=== PATIENT | male | born 1955 | race Caucasian/White ===

== ENCOUNTER 2023-06-24 08:45 | Outpatient (AMB) | payer MEDICARE, SELFPAY ==
--- NOTE | 2023-06-24 09:37 | AM.OFFWIN_ITS ---
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 Pt missed pcp est care appt on 10/21/22. Pt states he does not have a pcp nor has an appt. Pt states he just wants refills. 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 He has received refills from the clinic previously. It looks like he had a new PCP appointment last September which he missed. Patient states he did not know about this appointment, and is open to getting a PCP. At this time, he only has a couple of days left on his current medications. He states he is doing well on current meds with good effect, and no negative side effects. He states he has been on these at the same dose for many years. [facility] Social History Patient Tobacco Use Status: Never used Tobacco Review of Systems Const All systems reviewed & are unremarkable except as noted in HPI and below Physical Exam Vital Signs: Last Vital Signs Temp 96.7 F L 06/24/23 09:38 Pulse 58 06/24/23 09:38 BP 120/72 06/24/23 09:38 Pulse Ox 98 06/24/23 09:38 Oxygen Delivery Method Room Air 06/24/23 09:38 Const General: cooperative, healthy appearing, comfortable and no acute distress Orientation/consciousness: patient oriented x3 Resp Effort & Inspection: normal respiratory effort and able to speak in complete sentences Auscultation: clear to auscultation bilaterally Cardio Jugular venous distension: no JVD Palpation: normal PMI Rate: regular rate Rhythm: regular rhythm Skin General skin exam: no rashes or lesions noted Neuro General: patient oriented x3 and gait normal Extrem General: Yes capillary refill normal and Yes no clubbing, cyanosis or edema Psych Appearance: grossly normal Mental Status: mental status grossly normal Speech and movement: Normal speech and movement present Affect: normal affect Assessment & Plan Assessment & Plan (1) Encounter for medication refill: Code(s): Z76.0 - Encounter for issue of repeat prescription Plan: I had a lengthy discussion with patient today regarding importance of establishing care with a PCP, for general maintenance of care, screenings, med refills etc. He agrees to this, and will stop the desk prior to leaving here to make a new patient appointment with a PCP. In the meantime, I will provide him with a 1 month refill of the 3 meds as noted above. We reviewed the indications, use, possible side effects of all of these medications. I discussed with him that it is not advised that he continue to come to the walk- in clinic for medication refills. He verbalizes understanding and agrees to plan. Medications: Changed From citalopram 20 mg PO DAILY 14 tabs 0RF To citalopram 20 mg PO DAILY 30 days 30 tabs 0RF From chlorthalidone 25 mg PO DAILY 14 tabs 0RF To chlorthalidone 25 mg PO DAILY 30 days 30 tabs 0RF From atorvastatin 40 mg PO DAILY 14 tabs 0RF To atorvastatin 40 mg PO DAILY 30 days 30 tabs 0RF Discontinued citalopram Discontinued Reason: Duplicate 20 mg PO DAILY 30 tabs 2RF Coding Level of Care Code Est Pt Level 3 (54230) Diagnoses Encounter for medication refill Z76.0
[2023-06-24 09:38] VITALS: BP 120/72; PULSE 58; TEMP 35.9; O2SAT 98
== END 2023-06-24 10:18 | disposition home or self-care (01) ==
PROVIDERS: Visit Provider Nurse Practitioner Family
DX: Z76.0 Encounter for issue of repeat prescription (principal)
CPT/HCPCS: 99213

== ENCOUNTER 2023-08-10 11:25 | Outpatient (AMB) | payer MEDICARE, SELFPAY ==
--- NOTE | 2023-08-10 11:59 | AM.OFFWIN_ITS ---
Intake Vital Signs 08/10/23 12:28 Height 5 ft 11 in Weight 240 lb BMI 33.5 BP 130/74 Blood Pressure Location Rt brachial Position Sitting Pulse 74 Pulse Source Pulse Oximeter Temp 97.6 F Temp Source Temporal Artery Scan Pulse Oximetry (%) 98 Intake Visit Reasons: EST/med refill Intake Note: pt is here for medication refill Patient Tobacco Use Status: Never used Tobacco Allergies No Known Allergies Allergy (Verified 08/10/23 12:30) Do you need a note to return to daycare/school/sports/work: No HPI EST/med refill HPI Details Patient presents today requesting refill on regular medication chlorthalidone, atorvastatin, citalopram. He has received refills from the clinic previously. He has a new patient visit with Dr. Ozuna on 09/28 however is out of medication as of now and is hoping to get refill for these. He states he is doing well on current meds with good effect, and no negative side effects. He states he has been on these at the same dose for many years. [facility] [place] Social History Patient Tobacco Use Status: Never used Tobacco Review of Systems Const All systems reviewed & are unremarkable except as noted in HPI and below Physical Exam Vital Signs: Last Vital Signs Temp 97.6 F 08/10/23 12:28 Pulse 74 08/10/23 12:28 BP 130/74 08/10/23 12:28 Pulse Ox 98 08/10/23 12:28 BMI result Body Mass Index 33.5 Const General: cooperative, healthy appearing, comfortable and no acute distress Orientation/consciousness: patient oriented x3 Resp Effort & Inspection: normal respiratory effort and able to speak in complete sentences Auscultation: clear to auscultation bilaterally Cardio Jugular venous distension: no JVD Palpation: normal PMI Rate: regular rate Rhythm: regular rhythm Skin General skin exam: no rashes or lesions noted Neuro General: patient oriented x3 and gait normal Extrem General: Yes capillary refill normal and Yes no clubbing, cyanosis or edema Psych Appearance: grossly normal Mental Status: mental status grossly normal Speech and movement: Normal speech and movement present Affect: normal affect Assessment & Plan Assessment & Plan (1) Encounter for medication refill: Code(s): Z76.0 - Encounter for issue of repeat prescription Plan: I have refilled chlorthalidone, atorvastatin, citalopram as noted. Patient and I reviewed today indications, use, possible side effects of all medications. He verbalizes understanding. He states he has been on these medications for many years at the same dose, and has been stable on these with no side effects. Patient has a new patient visit scheduled 09/[address] Ozuna, which I strongly encouraged he keep, as the walk-in clinic providers will not be able to continue providing refills for these medications. He states he understands this, and is looking forward to having a PCP. If any needs arise in the meantime, he can certainly return to the clinic. Medications: Refilled chlorthalidone 25 mg PO DAILY 30 days 30 tabs 1RF atorvastatin 40 mg PO DAILY 30 days 30 tabs 1RF citalopram 20 mg PO DAILY 30 days 30 tabs 1RF Coding Level of Care Code Est Pt Level 3 (94828) Diagnoses Encounter for medication refill Z76.0
[2023-08-10 12:28] VITALS: BP 130/74; PULSE 74; TEMP 36.4; O2SAT 98; BMI 33.5
== END 2023-08-10 12:44 | disposition home or self-care (01) ==
PROVIDERS: Visit Provider Nurse Practitioner Family
DX: Z76.0 Encounter for issue of repeat prescription (principal)
CPT/HCPCS: 99213

== ENCOUNTER → 2023-09-08 08:33 | Outpatient (AMB) | payer OTHER, MEDICARE, SELFPAY ==
[2023-09-08 10:08] VITALS: BP 132/74; PULSE 76; TEMP 36.6; O2SAT 97; BMI 33.5
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
== END ==
PROVIDERS: Visit Provider Physician Assistant
DX: M25.551 Pain in right hip (principal)
CPT/HCPCS: 99213

== ENCOUNTER 2023-09-08 10:58 | Outpatient (REF) | payer OTHER, MEDICARE, SELFPAY | END 2023-09-08 10:59 | disposition home or self-care (01) | LOC: HO.HMGCX 10:58 | PROVIDERS: Visit Provider Physician Assistant | DX: M25.551 Pain in right hip (principal) | CPT/HCPCS: 73502 ==

== ENCOUNTER 2023-09-12 09:22 | Outpatient (AMB) | payer OTHER, MEDICARE, SELFPAY ==
[2023-09-12 10:12] VITALS: BP 122/68; PULSE 70; O2SAT 95; BMI 33.9
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
== END 2023-09-12 10:59 | disposition home or self-care (01) ==
PROVIDERS: PCP Internal Medicine; Visit Provider Physician Assistant Medical
DX: Z51.89 Encounter for other specified aftercare (principal)
CPT/HCPCS: 99051; 99213

== ENCOUNTER 2023-09-14 11:41 | Emergency (ER) | payer OTHER, MEDICARE, SELFPAY ==
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
[2023-09-14 11:51] VITALS: BP 152/104; PULSE 79; RESP 18; TEMP 35.9; O2SAT 96; BMI 33.3
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
[2023-09-14] MEDS: Ketorolac Tromethamine 30 MG/ML VIAL IM (16:25)
--- NOTE | 2023-09-14 16:31 | PC.NURSE ---
pt medicated per MAR
[2023-09-14] MEDS: Lidocaine 4 % Patch ADH..PATCH 1 PATCH TRANSDERMA (16:32)
== END 2023-09-14 16:31 | disposition home or self-care (01) ==
PROVIDERS: Emergency Provider Emergency Medicine; PCP Internal Medicine
DX: Z04.1 Encounter for examination and observation following transport accident (principal); G89.29 Other chronic pain; M25.551 Pain in right hip; Z96.641 Presence of right artificial hip joint
CPT/HCPCS: 73502; 96372; 99283; 99284; J1885

== ENCOUNTER 2023-09-22 13:04 | Outpatient (AMB) | payer OTHER, MEDICARE, SELFPAY ==
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
== END 2023-09-22 13:35 | disposition home or self-care (01) ==
PROVIDERS: PCP Internal Medicine; Visit Provider Orthopaedic Surgery
DX: M25.551 Pain in right hip (principal)
CPT/HCPCS: 99202

== ENCOUNTER → 2023-09-22 13:04 | Outpatient (BNVA) | payer OTHER, MEDICARE, SELFPAY | PROVIDERS: PCP Internal Medicine; Visit Provider Orthopaedic Surgery | DX: M25.551 Pain in right hip (principal) | CPT/HCPCS: 99202 ==

== ENCOUNTER 2023-09-28 12:01 | Outpatient (AMB) | payer MEDICARE, SELFPAY ==
[2023-09-28 12:06] VITALS: BP 128/86; PULSE 64; O2SAT 97; BMI 33.8
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
== END 2023-09-28 14:30 | disposition home or self-care (01) ==
PROVIDERS: Visit Provider Internal Medicine
DX: E78.5 Hyperlipidemia, unspecified (principal); I10 Essential (primary) hypertension; F32.89 Other specified depressive episodes; Z90.49 Acquired absence of other specified parts of digestive tract; Z12.11 Encounter for screening for malignant neoplasm of colon; Z00.00 Encounter for general adult medical examination without abnormal findings; M25.551 Pain in right hip
CPT/HCPCS: 99387; 99397

== ENCOUNTER 2023-09-29 11:00 | Outpatient (REF) | payer MEDICARE, SELFPAY ==
[2023-09-29 13:24] LABS: Appearance Urine Clear; Color Urine Yellow; Glucose Urine UA Negative (Negative); Leukocyte Esterase Urine Negative (Negative); Nitrite Urine Negative (Negative); PH 8.5 (5.0-9.0); Specific Gravity - Urine 1.015 (1.005-1.025); Urine Blood Negative (Negative); Urine Ketones Negative (Negative); Urine Protein Negative (Neg-Trace)
[2023-09-29 13:27] LABS: Bacteria Urine None Seen (None Seen); Hyaline Casts Urine 0-2 /LPF (0-2); RBC Urine 0-2 /HPF (0-2); Squamous Epithelial Cell Urine 0-2 /HPF (0-2); WBC Urine 0-5 /HPF (0-5)
[2023-09-29 13:32] LABS: MANUAL DIFF FLAG NO
[2023-09-29 13:40] LABS: Basophils Percent Auto 0.6 % (0-2); Eosinophils Absolute Auto 0.2 X10*3/uL (0.0-0.4); Eosinophils Percent Auto 2.7 % (0-4); Hematocrit 39.4 % (42.0-52.0); Hemoglobin 13.1 g/dl (14.0-18.0); Imm Gran Abs Auto 0.01 X10*3/uL (0.00-0.03); Imm Gran Pct Auto 0.2 % (0.0-0.4); Lymphocytes Percent Auto 16.4 % (20-40); Mean Corpuscular HGB Conc 33.2 g/dl (31.0-36.0); Mean Corpuscular Hemoglobin 31.7 pg (27.0-33.0); Mean Corpuscular Volume 95.4 fL (80.0-98.0); Mean Platelet Volume 12.5 fL (9.4-12.4); Monocytes Absolute Auto 0.4 X10*3/uL (0.1-1.2); Monocytes Percent Auto 6.5 % (2-11); Neutrophils Absolute Auto 4.6 x10*3/uL (2.0-8.3); Neutrophils Percent Auto 73.6 % (45-73); Platelet Count 183 X10*3/uL (160-400); Red Blood Count 4.13 X10*6/uL (4.60-5.80); Red Cell Distribution Width 12.4 % (11.0-16.0); White Blood Count 6.3 X10*3/uL (4.8-10.8)
[2023-09-29 13:56] LABS: Estimated Average Glucose 100 mg/dL; Hemoglobin A1c % 5.1 % (<6.0)
[2023-09-29 14:08] LABS: PSA,Total (Free>4and<10) 2.52 ng/mL (0.00-4.00)
[2023-09-29 14:10] LABS: Alanine Aminotransferase 14 U/L (0-40); Albumin Level 4.1 g/dL (3.5-5.0); Alkaline Phosphatase 41 U/L (39-117); Anion Gap 14 (12-20); Aspartate Amino Transferase 19 U/L (5-37); Bilirubin Total 0.7 mg/dL (0.0-1.0); Blood Urea Nitrogen 13 mg/dL (9-16); Calcium 9.2 mg/dL (8.4-10.2); Carbon Dioxide 26 mmol/L (22-29); Chloride 107 mmol/L (96-108); Cholesterol 225 mg/dL (<200); Estimated Glomerular Filt Rate > 60; Glucose Fasting 91 mg/dL (60-99); HDL Cholesterol 47 mg/dL (>40); LDL Cholesterol Calculated 137 mg/dL (<100); Sodium 143 mmol/L (135-145); Total Protein 6.8 g/dL (6.5-8.0); Triglycerides 207 mg/dL (<150)
== END 2023-09-29 11:01 | disposition home or self-care (01) ==
LOC: HO.HMGCLDS 11:00
PROVIDERS: PCP Internal Medicine; Visit Provider Internal Medicine
DX: Z00.00 Encounter for general adult medical examination without abnormal findings (principal); E78.5 Hyperlipidemia, unspecified; I10 Essential (primary) hypertension; F32.9 Major depressive disorder, single episode, unspecified; Z90.49 Acquired absence of other specified parts of digestive tract; Z12.5 Encounter for screening for malignant neoplasm of prostate
CPT/HCPCS: 36415; 80053; 80061; 81001; 83036; 84153; 85025

== ENCOUNTER 2023-09-30 09:34 | Outpatient (AMB) | payer MEDICARE, SELFPAY ==
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
[2023-09-30 09:48] VITALS: BP 138/80; PULSE 61; TEMP 35.9; O2SAT 97; BMI 36.4
== END 2023-09-30 10:38 | disposition home or self-care (01) ==
PROVIDERS: PCP Internal Medicine; Visit Provider Nurse Practitioner Family
DX: M25.572 Pain in left ankle and joints of left foot (principal)
CPT/HCPCS: 99213

== ENCOUNTER 2023-09-30 10:04 | Outpatient (REF) | payer MEDICARE, SELFPAY ==
--- NOTE | ~2023-09-30 | XR_ITS ---
EXAMINATION: XR ANKLE, LEFT CLINICAL INFORMATION: Pain in left ankle COMPARISON: None available. TECHNIQUE: AP, lateral, and mortise views of the left ankle. FINDINGS: There is soft tissue swelling in the left ankle not associated with fracture or dislocation. Ankle mortise is preserved. Soft tissues are otherwise are normal. There is plantar calcaneal spur. XR/XR ankle LT 2V IMPRESSION: No fracture seen
== END 2023-09-30 10:05 | disposition home or self-care (01) ==
LOC: HO.HMGCX 10:04
PROVIDERS: PCP Internal Medicine; Visit Provider Nurse Practitioner Family
DX: M25.572 Pain in left ankle and joints of left foot (principal)
CPT/HCPCS: 73600

== ENCOUNTER 2023-10-06 14:31 | Outpatient (AMB) | payer MEDICARE, SELFPAY ==
[2023-10-06 15:22] VITALS: BP 118/76; PULSE 75; O2SAT 96; BMI 33.5
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
== END 2023-10-06 16:14 | disposition home or self-care (01) ==
PROVIDERS: PCP Internal Medicine; Visit Provider Nurse Practitioner Primary Care
DX: S93.402D Sprain of unspecified ligament of left ankle, subsequent encounter (principal)
CPT/HCPCS: 99214

== ENCOUNTER 2023-10-06 14:35 | Outpatient (REF) | payer MEDICARE, SELFPAY ==
[2023-10-06 16:44] LABS: Iron 110 mcg/dL (45-160); Percent Iron Saturation 41 % (15-50); Total Iron Binding Capacity 270 mcg/dL (228-428); Unsaturated Iron Binding 160 ug/dL
[2023-10-06 17:09] LABS: Folate 9.8 ng/mL (> or = 4.0); Vitamin B12 382 pg/mL (200-900)
== END 2023-10-06 14:36 | disposition home or self-care (01) ==
LOC: HO.HMGCLDS 14:35
PROVIDERS: PCP Internal Medicine; Visit Provider Internal Medicine
DX: D64.9 Anemia, unspecified (principal)
CPT/HCPCS: 36415; 82607; 82746; 83540

== ENCOUNTER 2023-10-28 11:14 | Outpatient (AMB) | payer MEDICARE, SELFPAY ==
--- NOTE | 2023-10-28 11:17 | AM.OFFWIN_ITS ---
Intake Vital Signs 10/28/23 11:21 Height 5 ft 11 in BP 122/80 Blood Pressure Location Rt brachial Position Sitting Pulse 82 Pulse Source Pulse Oximeter Temp 98.3 F Temp Source Temporal Artery Scan Pulse Oximetry (%) 97 Oxygen Delivery Method Room Air Intake Visit Reasons: EST/wheezing/runny nose(lobby masked) Intake Note: pt is here for c/o wheezing, runny nose Patient Tobacco Use Status: Never used Tobacco Allergies No Known Allergies Allergy (Verified 10/28/23 11:26) Medication List - Last Reconciled 10/28/23 by Stefany Wharton PA-C atorvastatin 40 mg PO DAILY chlorthalidone 25 mg PO DAILY citalopram 20 mg PO DAILY diclofenac sodium 1% 2 grams topical QID doxycycline hyclate 100 mg PO BID lidocaine 5% (Lidoderm) 1 patch topical DAILY Do you need a note to return to daycare/school/sports/work: Yes HPI HPI Comments History of Present Illness Details Presents to office with cough/cold symptom ongoing x 4 days Theraflu without relief + congestion, wheezing, cough He said in past + bronchitis but asthma He smokes marijuana occasionally Subjective fever/chills with body aches No close contacts sick Cough is non-productive He admits to inhaler use in past due to illness He had some loose stools; no blood or black No dizziness or syncope No abdominal pain or vomiting [facility] Surgical History History of right hip replacement 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 Tobacco Use Status: Never used Tobacco e-Cigarette/Vaping Use: Never Used Current occupational status: employed 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 Cognitive needs: No Hearing needs: No Vision needs: Yes Review of Systems Const Reports chills, Reports fatigue and Reports fever(s) ENT Denies ear discharge, Reports nasal congestion, Reports post nasal drip and Denies sore throat Card Denies chest pain at rest, Denies chest pain with activity and Denies dyspnea Resp Reports cough, Denies dyspnea and Reports wheezing GI Denies abdominal pain, Denies melena, Denies hematochezia, Denies GI cramping, Reports diarrhea, Denies nausea and Denies vomiting Musc Reports myalgias Endo Reports fatigue Aller/Immun Reports wheezing Physical Exam Vital Signs: Last Vital Signs Temp 98.3 F 10/28/23 11:21 Pulse 82 10/28/23 11:21 BP 122/80 10/28/23 11:21 Pulse Ox 97 10/28/23 11:21 Oxygen Delivery Method Room Air 10/28/23 11:21 General: Non-toxic, NAD. Speaking full sentences. Skin: Warm dry throughout Eye: EOMI Lymph: no lymphadenopathy HENT: Airway patent. Uvula midline. No pharyngeal erythema or edema. No LOBBY PORTER. Bilateral canals clear. TM non-erythematous, non-bulging. No TM perforation or hemotympanum noted. Respiratory: wheeze L upper lobe. + rhonchi bilateral bases.No tachypnea Cardiac: RRR. No murmur MSK: Full ROM extremities. Neurology: No aphasia or facial droop. Psych: Good mood and affect Assessment & Plan Assessment & Plan (1) Acute bronchitis and bronchiolitis: Code(s): J20.9 - Acute bronchitis, unspecified; J21.9 - Acute bronchiolitis, unspecified Plan: Patient seen and evaluated. Vital stable Lungs + rhonchi and wheeze. Doxycycline to pharmacy for bronchitis; pt instructed to take with food Tessalon not covered with insurance so pt will continue OTC meds orn Minimal wheeze; O2 stable- no steroids warranted at this time. Patient gave verbal understanding and had no additional questions or concerns at time of discharge All questions answered Medications: New doxycycline hyclate 100 mg PO BID 14 caps 0RF J20.9 - Acute bronchitis, unspecified, J21.9 - Acute bronchiolitis, unspecified Coding Level of Care Code Est Pt Level 3 (49368) Diagnoses Acute bronchitis and bronchiolitis J20.9; J21.9
[2023-10-28 11:21] VITALS: BP 122/80; PULSE 82; TEMP 36.8; O2SAT 97
== END 2023-10-28 12:29 | disposition home or self-care (01) ==
PROVIDERS: PCP Internal Medicine; Visit Provider Physician Assistant
DX: J20.9 Acute bronchitis, unspecified (principal); J21.9 Acute bronchiolitis, unspecified
CPT/HCPCS: 99213

== ENCOUNTER 2023-11-04 09:02 | Outpatient (AMB) | payer MEDICARE, SELFPAY ==
--- NOTE | 2023-11-04 09:05 | AM.OFFWIN_ITS ---
Intake Vital Signs 11/04/23 09:06 Height 5 ft 11 in Weight 241 lb BMI 33.6 BP 130/74 Blood Pressure Location Rt brachial Position Sitting Pulse 78 Pulse Source Pulse Oximeter Temp 97.8 F Temp Source Temporal Artery Scan Pulse Oximetry (%) 96 Oxygen Delivery Method Room Air Intake Visit Reasons: EP chest cold masked in lobby Intake Note: pt is here for c.o chest cold with congestion Patient Tobacco Use Status: Never used Tobacco Allergies No Known Allergies Allergy (Verified 11/04/23 09:30) Medication List - Last Reconciled 11/04/23 by Bree Posey, GEORGE- albuterol sulfate 90 mcg/actuation 2 puffs inhalation Q4-6H PRN 30 days atorvastatin 40 mg PO DAILY chlorthalidone 25 mg PO DAILY citalopram 20 mg PO DAILY diclofenac sodium 1% 2 grams topical QID doxycycline hyclate 100 mg PO BID lidocaine 5% (Lidoderm) 1 patch topical DAILY Do you need a note to return to daycare/school/sports/work: Yes HPI HPI Comments History of Present Illness Details Here today w c/o cont cough was seen and tx here 10/28/23 for similar complaints tx w/ doxy bid x 7 days he still has 3 tabs left does not feel much better, worries about a PNA [facility] Surgical History History of right hip replacement 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 Tobacco Use Status: Never used Tobacco e-Cigarette/Vaping Use: Never Used Current occupational status: employed 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 Cognitive needs: No Hearing needs: No Vision needs: Yes Review of Systems Const All systems reviewed & are unremarkable except as noted in HPI and below Physical Exam Vital Signs: Last Vital Signs Temp 97.8 F 11/04/23 09:06 Pulse 78 11/04/23 09:06 BP 130/74 11/04/23 09:06 Pulse Ox 96 11/04/23 09:06 Oxygen Delivery Method Room Air 11/04/23 09:06 BMI result Body Mass Index 33.6 Const Other: awake, alert coarse ins/exp wheeze throughout all lung alvarez, prod cough w thick yellow sput um Assessment & Plan Assessment & Plan (1) Acute bronchitis and bronchiolitis: Code(s): J20.9 - Acute bronchitis, unspecified; J21.9 - Acute bronchiolitis, unspecified Plan: given his cont wheeze, plan cxr today, he should be called w results and treatment as per results. he is hesitant to take steroids so will hold off. i have also sent in inhaler, use as directed. complete doxy as directed Orders: Orders XR chest 2V Today J20.9 - Acute bronchitis, unspecified, J21.9 - Acute bronchiolitis, unspecified Medications: New albuterol sulfate 90 mcg/actuation 2 puffs inhalation Q4-6H 30 days PRN 8.5 grams 0RF shortness of breath or wheezing Coding Level of Care Code Est Pt Level 4 (68584) Diagnoses Acute bronchitis and bronchiolitis J20.9; J21.9
[2023-11-04 09:06] VITALS: BP 130/74; PULSE 78; TEMP 36.6; O2SAT 96; BMI 33.6
== END 2023-11-04 10:10 | disposition home or self-care (01) ==
PROVIDERS: PCP Internal Medicine; Visit Provider Nurse Practitioner Family
DX: J20.9 Acute bronchitis, unspecified (principal); J21.9 Acute bronchiolitis, unspecified
CPT/HCPCS: 99214

== ENCOUNTER 2023-11-04 09:29 | Outpatient (REF) | payer MEDICARE, SELFPAY ==
--- NOTE | ~2023-11-04 | XR_ITS ---
EXAMINATION: XR CHEST CLINICAL INFORMATION: Acute bronchitis. Cold, and attenuation with SOB. COMPARISON: None available. TECHNIQUE: 2 views of the chest were obtained. FINDINGS: No significant abnormality is noted involving the heart, lungs, mediastinum, bony thorax or soft tissues. XR/XR chest 2V IMPRESSION: Unremarkable chest exam.
== END 2023-11-04 09:30 | disposition home or self-care (01) ==
LOC: HO.HMGCX 09:29
PROVIDERS: PCP Internal Medicine; Visit Provider Nurse Practitioner Family
DX: J20.9 Acute bronchitis, unspecified (principal); J21.9 Acute bronchiolitis, unspecified
CPT/HCPCS: 71046

== ENCOUNTER 2023-12-11 14:00 | Outpatient (RCR) | payer MEDICARE, SELFPAY ==
--- NOTE | 2023-12-14 08:17 | MHC.PT.DC ---
[facility] [place] Office [place] Office [place] Office [address] Hugh Peters [address] [phone] F: [phone] F: [phone] F: [phone] F: [phone] Physical Therapy Discharge Report Diagnosis: L ankle sprain Date of Surgery: Date of Evaluation: 10/09/23 Date of Discharge: 12/11/23 Treatments to Date: 10 Cancellations to Date: 0 No Shows to Date: 2 Discharge Status: Achieved Goals Improved Function Independent with HEP Discharge Summary: He reports ambulating about 20 minutes now before it gets sore but it mostly sore at the end of the work day. Reviewed HEP and recommended pt do some of his exercises when he gets home from work to see if that allevaites some of his soreness at the end of the day. He has an ortho appointment in 2 weeks and an appointment with a portfolio director in a month. At this time, recommend he f/u with doctors and conitnue with HEP. LEFS improved from to 52. Electronically signed by: Mere Bobby PT Please sign and return to therapist. Thank you for your referral.
== END 2023-12-11 14:52 ==
LOC: HO.PTCHIC 14:00
PROVIDERS: PCP Internal Medicine; Visit Provider Nurse Practitioner Primary Care
DX: S93.402A Sprain of unspecified ligament of left ankle, initial encounter (principal)
CPT/HCPCS: 97110; 97140; 97162; 97530

== ENCOUNTER 2023-12-24 12:34 | Outpatient (AMB) | payer MEDICARE, SELFPAY ==
[2023-12-24 12:54] VITALS: BMI 33.6
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
== END 2023-12-24 13:17 | disposition home or self-care (01) ==
PROVIDERS: PCP Internal Medicine; Visit Provider Physician Assistant
DX: M19.072 Primary osteoarthritis, left ankle and foot (principal)
CPT/HCPCS: 99213

== ENCOUNTER 2023-12-24 12:43 | Outpatient (REF) | payer MEDICARE, SELFPAY ==
--- NOTE | ~2023-12-24 | XR_ITS ---
EXAMINATION: XR ANKLE, LEFT CLINICAL INFORMATION: Pain COMPARISON: 09/30/2023 TECHNIQUE: AP, lateral, and mortise views of the left ankle. FINDINGS: Mild soft tissue swelling about the ankle again seen. Tiny bony density identified adjacent to the medial malleolus is unchanged. Plantar calcaneal spurring and Achilles calcifications. No acute fracture or dislocation. Mortise is intact. XR/XR ankle LT min 3V IMPRESSION: No acute bony pathology or interval change.
== END 2023-12-24 12:44 | disposition home or self-care (01) ==
LOC: HO.HOSX 12:43
PROVIDERS: Visit Provider Physician Assistant
DX: M19.072 Primary osteoarthritis, left ankle and foot (principal); M25.551 Pain in right hip
CPT/HCPCS: 73610; 99212

== ENCOUNTER 2024-03-26 06:38 | Outpatient (REF) | payer MEDICARE, SELFPAY ==
[2024-03-26 11:39] LABS: MANUAL DIFF FLAG NO
[2024-03-26 11:47] LABS: Basophils Absolute Auto 0.1 X10*3/uL (0.0-0.2); Basophils Percent Auto 0.8 % (0-2); Eosinophils Absolute Auto 0.2 X10*3/uL (0.0-0.4); Eosinophils Percent Auto 3.9 % (0-4); Hematocrit 44.1 % (42.0-52.0); Hemoglobin 15.1 g/dl (14.0-18.0); Imm Gran Abs Auto 0.01 X10*3/uL (0.00-0.03); Imm Gran Pct Auto 0.2 % (0.0-0.4); Lymphocytes Absolute Auto 1.4 X10*3/uL (1.2-4.9); Lymphocytes Percent Auto 22.1 % (20-40); Mean Corpuscular HGB Conc 34.2 g/dl (31.0-36.0); Mean Corpuscular Hemoglobin 31.7 pg (27.0-33.0); Mean Corpuscular Volume 92.5 fL (80.0-98.0); Mean Platelet Volume 12.8 fL (9.4-12.4); Monocytes Absolute Auto 0.5 X10*3/uL (0.1-1.2); Monocytes Percent Auto 8.8 % (2-11); Neutrophils Absolute Auto 3.9 x10*3/uL (2.0-8.3); Neutrophils Percent Auto 64.2 % (45-73); Platelet Count 172 X10*3/uL (160-400); Red Blood Count 4.77 X10*6/uL (4.60-5.80); Red Cell Distribution Width 11.9 % (11.0-16.0); White Blood Count 6.1 X10*3/uL (4.8-10.8)
[2024-03-26 12:18] LABS: PSA,Total (Free>4and<10) 2.54 ng/mL (0.00-4.00)
[2024-03-26 12:19] LABS: Alanine Aminotransferase 17 U/L (0-40); Albumin Level 4.3 g/dL (3.5-5.0); Alkaline Phosphatase 43 U/L (39-117); Anion Gap 13 (12-20); Aspartate Amino Transferase 21 U/L (5-37); Bilirubin Total 0.8 mg/dL (0.0-1.0); Blood Urea Nitrogen 15 mg/dL (9-16); Carbon Dioxide 30 mmol/L (22-29); Chloride 102 mmol/L (96-108); Cholesterol 183 mg/dL (<200); Estimated Glomerular Filt Rate > 60; Glucose Fasting 121 mg/dL (60-99); HDL Cholesterol 48 mg/dL (>40); LDL Cholesterol Calculated 96 mg/dL (<100); Potassium 3.3 mmol/L (3.3-5.1); Sodium 142 mmol/L (135-145); Total Protein 7.4 g/dL (6.5-8.0); Triglycerides 197 mg/dL (<150)
[2024-03-26 12:31] LABS: Folate 6.6 ng/mL (> or = 4.0); Vitamin B12 397 pg/mL (200-900)
== END 2024-03-26 06:39 | disposition home or self-care (01) ==
LOC: HO.HMGCLDS 06:38
PROVIDERS: PCP Internal Medicine; Visit Provider Internal Medicine
DX: Z00.00 Encounter for general adult medical examination without abnormal findings (principal); E78.5 Hyperlipidemia, unspecified; I10 Essential (primary) hypertension; D64.9 Anemia, unspecified; Z12.5 Encounter for screening for malignant neoplasm of prostate
CPT/HCPCS: 36415; 80053; 80061; 82607; 82746; 84153; 85025

== ENCOUNTER 2024-03-29 10:00 | Outpatient (AMB) | payer MEDICARE, SELFPAY ==
[2024-03-29 10:04] VITALS: BP 118/74; PULSE 61; O2SAT 95; BMI 34.7
--- NOTE | 2024-03-29 10:04 | A.OFFPC_ITS ---
Vital Signs 03/29/24 10:04 Height 5 ft 11 in Weight 249 lb BMI 34.7 BP 118/74 Blood Pressure Location Rt brachial Position Sitting Pulse 61 Pulse Source Pulse Oximeter Pulse Oximetry (%) 95 Oxygen Delivery Method Room Air Intake Visit Reasons: 6 month follow up Intake Note: Pt is here today for 6 months follow up visit on labs. Allergies No Known Allergies Allergy (Verified 03/29/24 10:09) Medication List - Last Reconciled 03/29/24 by Reena Ozuna MD albuterol sulfate 90 mcg/actuation 2 puffs inhalation Q4-6H PRN 30 days Anoro Ellipta 62.5-25 mcg/actuation (umeclidinium-vilanterol) 1 inh inhalation DAILY NS atorvastatin 40 mg PO DAILY chlorthalidone 25 mg PO DAILY citalopram 40 mg PO DAILY diclofenac sodium 1% 2 grams topical QID lidocaine 5% (Lidoderm) 1 patch topical DAILY Tobacco use date assessed: 03/29/24 Fall risk assessment: No Falls in past year Last assessed Fall Risk: 03/29/24 Dental Screening Dental Screen Date: 03/29/24 Did you have a dental visit in the last 12 months?: Yes Did you have a dental problem in the last 6 months where you did not have access to dental care?: No Was dental information given to patient?: Patient has dentist HPI 6 month follow up HPI Details Pt presents for f/u hyperlipid, HTN, stable on meds. Pt complains of feeling more depressed because of relationship online. He denies suicidal ideation. Patient has been taking citalopram 20 mg chronically. Patient reports intermittent dry cough and has been smoking marijuana daily. He denies sputum production or history of asthma. Patient has chronic lipoma on the back of his neck and would like to have it surgically removed. [facility] Surgical History History of right hip replacement Family History (Updated 03/29/24 @ 10:12 by XOCHILT Leonard) Father Hypertension Mother No problems noted. 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 1. Little interest or pleasure in doing things: nearly every day 2. Feeling down, depressed, or hopeless: nearly every day 3. Trouble falling or staying asleep, or sleeping too much: nearly every day 4. Feeling tired or having little energy: nearly every day 5. Poor appetite or overeating: nearly every day 6. Feeling bad about yourself - or that you are a failure or have let yourself or your family down: nearly every day 7. Trouble concentrating on things, such as reading the newspaper or watching television: not at all 8. Moving or speaking so slowly that other people could have noticed. Or the opposite - being so fidgety or restless that you have been moving around a lot more than usual: not at all 9. Thoughts that you would be better off or of hurting yourself in some way: several days Total score: 19 Depression Screening Interpretation: Positive (Increase citalopram to 40 mg a day. Patient will call counselor to schedule a psychotherapy. Follow-up in 1 month) Depression Screening Follow-up: Existing condition and In treatment Depression Screening Done: Yes Source: Developed by Drs. Sukhwinder Ellington, Mary Randall, Thaddeus Black and colleagues, with an educational waleska from [employer]. Thrive Questionnaire Date Thrive assessed: 03/29/24 I am a: Patient What is your living situation today?: I have a steady place to live Within the past 12 months, did the food you bought not last and you didn't have the money to get more?: Sometimes True Within the past 12 months, did you worry whether your food would run out before you got money to buy more?: Sometimes True Do you have trouble paying for medicines?: No Do you have trouble getting transportation to medical appointments?: No Do you have trouble paying your heating and electricity bill?: No Do you have trouble taking care of your child, family member or friend?: No Do you have trouble with day-to-day activities such as bathing, preparing meals, shopping, managing finances, etc.?: No Are you currently unemployed and looking for a job?: No Are you interested in more education?: No Please select the resources that you would like help with: None THRIVE Score: 2 GENARO-7 AMB Questionnaire GENARO-7 Date GENARO - 7 assessed: 03/29/24 Feeling nervous, anxious, or on edge: 3 = Nearly every day Not being able to stop or control worryin = Nearly every day Worrying too much about different things: 3 = Nearly every day Trouble relaxin = Nearly every day Being so restless that it is hard to sit still: 3 = Nearly every day Becoming easily annoyed or irritable: 3 = Nearly every day Feeling afraid as if something awful might happen: 3 = Nearly every day Total GENARO-7 score (0-4 normal; 5-9 mild; 10-14 moderate; 15-21 severe): 21 Source: Developed by Drs. Sukhwinder Ellington, Mary Randall, Thaddeus hager nd colleagues, with an educational waleska from [employer]. Review of Systems Const All systems reviewed & are unremarkable except as noted in HPI and below Reports no additional complaints Eyes Reports no additional complaints ENT Reports no additional complaints Card Reports no additional complaints Resp Reports no additional complaints GI Reports no additional complaints Reports no additional complaints Physical exam (Primary Care) Vital Signs: Last Vital Signs Pulse 61 03/29/24 10:04 BP 118/74 03/29/24 10:04 Pulse Ox 95 03/29/24 10:04 Oxygen Delivery Method Room Air 03/29/24 10:04 BMI result Body Mass Index 34.7 Tobacco/Smoking Status: Tobacco use Status Tobacco use date assessed 03/29/24 03/29/24 10:14 Patient Tobacco Use Status Never used Tobacco 03/29/24 10:04 e-Cigarette/Vaping Use Never Used 03/29/24 10:04 PHQ-9: PHQ-9 Score PHQ-9: Total score 19 03/29/24 10:14 Depression Screening Interpretation: Positive (Increase citalopram to 40 mg a day. Patient will call counselor to schedule a psychotherapy. Follow-up in 1 month) Depression Screening Follow-up: Existing condition and In treatment Thrive Assessment: Date of Thrive Assessment Date Thrive assessed 03/29/24 03/29/24 10:14 Const General: no acute distress HENMT Head: Yes normal to inspection Ears: hearing grossly normal bilaterally Throat: Yes posterior oropharynx normal Eyes General: appearance normal, both eyes and all related structures Resp Effort & Inspection: normal respiratory effort Auscultation: wheezes and diminished lung sounds Cardio Rhythm: regular rhythm Heart sounds: S1 normal heart sound present and S2 normal heart sound present GI Inspection: Yes normal to inspection Palpation (GI): Soft to palpation Percussion: Yes normal to percussion Auscultation: normal bowel sounds Skin Other: There is 3 cm subcutaneous mobile soft mass, not tender, no erythema Assessment and Plan Assessment & Plan (1) Hypertension: Code(s): I10 - Essential (primary) hypertension Plan: Continue chlorthalidone. Patient was advised to eat calcium reach foods and repeat basic metabolic panel in 2 weeks (2) Lipoma: Comment: posterior neck Code(s): D17.9 - Benign lipomatous neoplasm, unspecified Plan: Referred to a surgeon (3) Chronic bronchitis: Code(s): J42 - Unspecified chronic bronchitis Plan: Start Anoro and use albuterol as needed follow-up in 1 month (4) Depression: Code(s): F32.9 - Major depressive disorder, single episode, unspecified Qualifiers: Depression Type: other depression Qualified Code(s): F32.89 - Other specified depressive episodes Plan: Increase citalopram to 40 mg a day patient will call a counselor and will follow-up in 1 month (5) Hyperlipidemia: Code(s): E78.5 - Hyperlipidemia, unspecified Plan: Continue statin (6) Overweight: Code(s): E66.3 - Overweight Plan: Increase physical activity decrease caloric intake discussed with the patient Orders: Orders Hemoglobin A1c 2 Weeks I10 - Essential (primary) hypertension Basic Metabolic Panel 2 Weeks I10 - Essential (primary) hypertension Referrals General Surgery Referral D17.9 - Benign lipomatous neoplasm, unspecified Medications: New Anoro Ellipta 62.5-25 mcg/actuation (umeclidinium-vilanterol) 1 inh inhalation DAILY 60 ea 4RF NS citalopram 40 mg PO DAILY 90 tabs 3RF Discontinued citalopram Discontinued Reason: Doctor's Order 20 mg PO DAILY 90 tabs 3RF Coding Level of Care Code Est Pt Level 4 (21414) Diagnoses Hypertension I10 Lipoma D17.9 Chronic bronchitis J42 Other depression F32.89 Depression Type: other depression Hyperlipidemia E78.5 Overweight E66.3
== END 2024-03-29 11:01 | disposition home or self-care (01) ==
PROVIDERS: PCP Internal Medicine; Visit Provider Internal Medicine
DX: I10 Essential (primary) hypertension (principal); D17.9 Benign lipomatous neoplasm, unspecified; J42 Unspecified chronic bronchitis; F32.89 Other specified depressive episodes; E78.5 Hyperlipidemia, unspecified; E66.3 Overweight
CPT/HCPCS: 99214

== ENCOUNTER 2024-04-26 08:37 | Outpatient (AMB) | payer MEDICARE, SELFPAY ==
[2024-04-26 08:53] VITALS: BP 94/64; PULSE 50; O2SAT 94; BMI 34.7
--- NOTE | 2024-04-26 08:53 | MHC.PC.OV ---
Vital Signs 04/26/24 08:53 Height 5 ft 11 in Weight 249 lb BMI 34.7 BP 94/64 Blood Pressure Location Rt brachial Position Sitting Pulse 50 Pulse Source Pulse Oximeter Pulse Oximetry (%) 94 Oxygen Delivery Method Room Air Intake Visit Reasons: 1M F/U Intake Note: Pt is here today for 1 month follow up visit. Allergies No Known Allergies Allergy (Verified 04/26/24 08:56) Medication List - Last Reconciled 04/26/24 by Reena Ozuna MD albuterol sulfate 90 mcg/actuation 2 puffs inhalation Q4-6H PRN 30 days Anoro Ellipta 62.5-25 mcg/actuation (umeclidinium-vilanterol) 1 inh inhalation DAILY NS atorvastatin 40 mg PO DAILY chlorthalidone 25 mg PO DAILY citalopram 40 mg PO DAILY compr.stocking,knee,long,x-lrg As directed diclofenac sodium 1% 2 grams topical QID lidocaine 5% (Lidoderm) 1 patch topical DAILY Tobacco use date assessed: 03/29/24 Dental Screening Dental Screen Date: 03/29/24 HPI 1M F/U HPI Details Pt presents for COPD, hyperlipid, hypertension chronic depression stable on current medications. [facility] Surgical History History of right hip replacement Family History Father Hypertension Mother No problems noted. 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 Sukhwinder Ellington, Mary Randall, Thaddeus Black and colleagues, with an educational waleska from [employer]. Review of Systems Const All systems reviewed & are unremarkable except as noted in HPI and below Reports no additional complaints Eyes Reports no additional complaints ENT Reports no additional complaints Card Reports no additional complaints Resp Reports no additional complaints Reports no additional complaints Physical exam (Primary Care) Vital Signs: Last Vital Signs Pulse 50 04/26/24 08:53 BP 94/64 04/26/24 08:53 Pulse Ox 94 04/26/24 08:53 Oxygen Delivery Method Room Air 04/26/24 08:53 BMI result Body Mass Index 34.7 Tobacco/Smoking Status: Tobacco use Status Tobacco use date assessed 03/29/24 04/26/24 08:53 Patient Tobacco Use Status Never used Tobacco 04/26/24 08:53 e-Cigarette/Vaping Use Never Used 04/26/24 08:53 Thrive Assessment: Date of Thrive Assessment Date Thrive assessed 03/29/24 04/26/24 08:53 Const General: no acute distress HENMT Head: Yes normal to inspection Eyes General: appearance normal, both eyes and all related structures Resp Effort & Inspection: normal respiratory effort Auscultation: clear to auscultation bilaterally Cardio Rhythm: regular rhythm Heart sounds: S1 normal heart sound present and S2 normal heart sound present GI Inspection: Yes normal to inspection Palpation (GI): Soft to palpation Assessment and Plan Assessment & Plan (1) Varicose veins of both legs with edema: Code(s): I83.893 - Varicose veins of bilateral lower extremities with other complications Plan: Patient will try compression knee-highs (2) Hypertension: Code(s): I10 - Essential (primary) hypertension Plan: Continue chlorthalidone (3) Hyperlipidemia: Code(s): E78.5 - Hyperlipidemia, unspecified Plan: Continue statin (4) Hyperglycemia: Code(s): R73.9 - Hyperglycemia, unspecified Plan: ADA diet increase exercise weight loss discussed with the patient check A1c (5) Chronic bronchitis: Code(s): J42 - Unspecified chronic bronchitis Plan: Continue Anoro Ellipta Orders: Orders Comprehensive [place]. Panel Fast 5 Months E78.5 - Hyperlipidemia, unspecified, I10 - Essential (primary) hypertension, R73.9 - Hyperglycemia, unspecified Hemoglobin A1c 5 Months E78.5 - Hyperlipidemia, unspecified, I10 - Essential (primary) hypertension, R73.9 - Hyperglycemia, unspecified Lipid Panel 5 Months E78.5 - Hyperlipidemia, unspecified, I10 - Essential (primary) hypertension, R73.9 - Hyperglycemia, unspecified Medications: New compr.stocking,knee,long,x-lrg As directed 2 ea 0RF I83.893 - Varicose veins of bilateral lower extremities with other complications compr.stocking,knee,long,x-lrg As directed 2 ea 0RF I83.893 - Varicose veins of bilateral lower extremities with other complications Coding Level of Care Code Est Pt Level 4 (44754) Diagnoses Varicose veins of both legs with edema I83.893 Hypertension I10 Hyperlipidemia E78.5 Hyperglycemia R73.9 Chronic bronchitis J42
== END 2024-04-26 09:33 | disposition home or self-care (01) ==
PROVIDERS: PCP Internal Medicine; Visit Provider Internal Medicine
DX: I83.893 Varicose veins of bilateral lower extremities with other complications (principal); I10 Essential (primary) hypertension; E78.5 Hyperlipidemia, unspecified; R73.9 Hyperglycemia, unspecified; J42 Unspecified chronic bronchitis
CPT/HCPCS: 99214

== ENCOUNTER 2024-06-15 15:05 | Outpatient (AMB) | payer MEDICARE, SELFPAY ==
--- NOTE | 2024-06-15 15:06 | MHC.OFFWIV ---
Intake Vital Signs 06/15/24 15:09 Height 5 ft 11 in Weight 245 lb BMI 34.2 BP 132/90 H Blood Pressure Location Rt brachial Position Sitting Pulse 72 Pulse Source Pulse Oximeter Temp 99.8 F Temp Source Oral Pulse Oximetry (%) 96 Oxygen Delivery Method Room Air Intake Visit Reasons: EP chest cold, fever Intake Note: pt here c/o cold symptoms and fever. Started yesterday Patient Tobacco Use Status: Never used Tobacco Allergies No Known Allergies Allergy (Verified 06/15/24 15:07) Do you need a note to return to daycare/school/sports/work: No HPI HPI Comments History of Present Illness Details Pt is a 69yo M with hx of bronchitis who presents with fever, cough Ongoing since yesterday Subjective fever/chills Management with Advil and Mucinex without relief + congestion, cough with clear phlegm Some SOB/wheezing No CP, ST, nausea or vomiting Some loose stool but no abdominal pain PFSH Surgical History History of right hip replacement Family History Father Hypertension Mother No problems noted. 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 Cognitive needs: No Hearing needs: No Vision needs: Yes Review of Systems Const Reports chills, Reports fatigue and Reports fever(s) ENT Denies dizziness and Denies sore throat Card Denies chest pain and Denies syncope Resp Reports chest congestion, Reports cough and Reports wheezing GI Denies abdominal pain, Reports loose stools, Denies nausea and Denies vomiting Musc Reports myalgias Neuro Denies dizziness and Denies syncope Endo Reports fatigue Aller/Immun Reports wheezing Physical Exam Vital Signs: Last Vital Signs Temp 99.8 F 06/15/24 15:09 Pulse 72 06/15/24 15:09 BP 132/90 H 06/15/24 15:09 Pulse Ox 96 06/15/24 15:09 Oxygen Delivery Method Room Air 07/17/24 15:09 BMI result Body Mass Index 34.2 General: Non-toxic, NAD. Speaking full sentences. Skin: Warm dry throughout Eye: EOMI HENT: Airway patent. Uvula midline. No pharyngeal erythema or edema. No COLLECTIONS AND ARCHIVES DIRECTOR. Moist mucosa Bilateral canals clear. TM non-erythematous, non-bulging. No TM perforation or hemotympanum noted. Respiratory: + wheezing throughout. + decreaed sounds RLL Cardiac: RRR. No murmur MSK: Full ROM extremities. Neurology: A/O. No aphasia or facial droop. Gait without abnormality Psych: Good mood and affect Assessment & Plan Assessment & Plan (1) Cough: Code(s): R05.9 - Cough, unspecified Qualifiers: Cough type: acute Qualified Code(s): R05.1 - Acute cough Plan: Patient seen and evaluated. Lab closed so unable to do a binex now covid. Will complete send out Chest xray: I viewed and saw chest xray without infiltrate COVID/RSV.flu obtained Prednisone and tessalon to pharmacy If positive for one of them can discuss management with him tomorrow If negative for viral panel, recommend antibiotic coverage for hx of bronchitis Patient gave verbal understanding and had no additional questions or concerns at time of discharge All questions answered Orders: Orders XR chest 2V Today R05.9 - Cough, unspecified SARS-CoV2/FLU/RSV Today R05.9 - Cough, unspecified Medications: New benzonatate 200 mg PO BID-TID PRN 14 caps 0RF cough prednisone 40 mg (2 x 20 mg) PO DAILY 4 days 8 tabs 0RF Coding Level of Care Code Est Pt Level 3 (80279) Diagnoses Acute cough R05.1 Cough type: acute
[2024-06-15 15:09] VITALS: BP 132/90; PULSE 72; TEMP 37.7; O2SAT 96; BMI 34.2
== END 2024-06-15 16:53 | disposition home or self-care (01) ==
PROVIDERS: PCP Internal Medicine; Visit Provider Physician Assistant
DX: R05.1 Acute cough (principal)
CPT/HCPCS: 99213

== ENCOUNTER 2024-06-15 15:23 | Outpatient (REF) | payer MEDICARE, SELFPAY ==
--- NOTE | ~2024-06-15 | XR_ITS ---
EXAMINATION: XR CHEST CLINICAL INFORMATION: Cough COMPARISON: 11/04/2023 TECHNIQUE: 2 views of the chest were obtained. FINDINGS: No significant abnormality is noted involving the heart, lungs, mediastinum, bony thorax or soft tissues. XR/XR chest 2V IMPRESSION: Unremarkable examination.
[2024-06-16 10:56] LABS: Influenza A PCR NEGATIVE (Negative); Influenza B PCR NEGATIVE (Negative); Resp Syncy Virus RNA Qual PCR NEGATIVE (Negative); SARS COV2 PCR INHOUSE NEGATIVE (Negative)
== END 2024-06-15 15:24 | disposition home or self-care (01) ==
LOC: HO.HMGCX 15:23
PROVIDERS: PCP Internal Medicine; Visit Provider Physician Assistant
DX: R05.9 Cough, unspecified (principal)
CPT/HCPCS: 0241U; 71046

== ENCOUNTER 2024-06-16 13:41 | Outpatient (AMB) | payer MEDICARE, SELFPAY ==
--- NOTE | 2024-06-16 13:48 | AM.OFFWIN_ITS ---
Intake Vital Signs 06/16/24 13:49 Height 5 ft 11 in Weight 245 lb BMI 34.2 BP 128/84 Pulse 79 Pulse Source Pulse Oximeter Temp 99.1 F Temp Source Oral Pulse Oximetry (%) 95 Oxygen Delivery Method Room Air Intake Visit Reasons: EP, unable to sleep Intake Note: pt c/o cold symptoms/ unable to sleep Patient Tobacco Use Status: Never used Tobacco Allergies No Known Allergies Allergy (Verified 06/16/24 13:49) Do you need a note to return to daycare/school/sports/work: No HPI EP, unable to sleep HPI Details This note is constructed using voice recognition software. While every effort has been made to ensure accuracy, clinical psychologist licensed errors may have been included. The patient is a 69 year old male who presents to the clinic today with 1 day history of insomnia. 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 He also notes he was seen yesterday for URI. He was prescribed prednisone, but did not take it until this morning. He has to work [employer], and tried to sleep last night, taking advil pm which did not help him sleep last night. He reports feeling calm, but just unable to sleep. He has taken advil pm in the past, with good effect. He has not tried anything to help sleep today. [facility] Surgical History History of right hip replacement Family History Father Hypertension Mother No problems noted. 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 Cognitive needs: No Hearing needs: No Vision needs: Yes Review of Systems Const All systems reviewed & are unremarkable except as noted in HPI and below Physical Exam Vital Signs: Last Vital Signs Temp 99.1 F 06/16/24 13:49 Pulse 79 06/16/24 13:49 BP 128/84 06/16/24 13:49 Pulse Ox 95 06/16/24 13:49 Oxygen Delivery Method Room Air 06/16/24 13:49 BMI result Body Mass Index 34.2 Const General: cooperative, healthy appearing, comfortable, no acute distress and alert Orientation/consciousness: patient oriented x3 Limitations: no limitations Neuro General: patient oriented x3 Psych Appearance: grossly normal Mental Status: mental status grossly normal Speech and movement: Normal speech and movement present Affect: normal affect Assessment & Plan Assessment & Plan (1) Insomnia: Code(s): G47.00 - Insomnia, unspecified Qualifiers: Insomnia type: unspecified Qualified Code(s): G47.00 - Insomnia, unspecified Plan: Given that patient did not yet start prednisone, medication side effect unlikely. Advised taking night off of work to rest and sleep. Discussed at home treatment options including sleepy time tea, meditation, may also try again advil pm. Discussed avoidance of controlled substances for sleep given acute nature. Advised follow up with pcp with ongoing or worsening symptoms. Plan See above for full details and plan. Coding Level of Care Code Est Pt Level 3 (97090) Diagnoses Insomnia, unspecified type G47.00 Insomnia type: unspecified
[2024-06-16 13:49] VITALS: BP 128/84; PULSE 79; TEMP 37.3; O2SAT 95; BMI 34.2
== END 2024-06-16 14:24 | disposition home or self-care (01) ==
PROVIDERS: PCP Internal Medicine; Visit Provider Registered Nurse
DX: G47.00 Insomnia, unspecified (principal)
CPT/HCPCS: 99213

== ENCOUNTER 2024-06-21 14:40 | Outpatient (AMB) | payer MEDICARE, SELFPAY ==
[2024-06-21 14:41] VITALS: BP 130/80; PULSE 68; TEMP 37; O2SAT 93; BMI 34.2
--- NOTE | 2024-06-21 14:41 | MHC.OFFWIV ---
Intake Vital Signs 06/21/24 14:41 Height 5 ft 11 in Weight 245 lb BMI 34.2 BP 130/80 Blood Pressure Location Rt brachial Position Sitting Pulse 68 Pulse Source Pulse Oximeter Temp 98.6 F Temp Source Oral Pulse Oximetry (%) 93 Oxygen Delivery Method Room Air Intake Visit Reasons: EP F/U from [place] chest congestion Intake Note: pt is here for chest congestion follow up Patient Tobacco Use Status: Never used Tobacco Allergies No Known Allergies Allergy (Verified 06/21/24 14:42) Do you need a note to return to daycare/school/sports/work: Yes HPI HPI Comments History of Present Illness Details Pt seen 06/15 by myself Negative RSV/COVID/Flu swab. Negative chest xray Given prednisone Returned on 06/16 for insomnia although didnt take prednisone Returning for cough evaluation He states fever/chills ended today No breathing tx taken at home Not taking any other medicine for symptoms + continual wheeze, chest tightness and white sputum Some SOB on exertion No chest pain, ear pain or ST + congestion PFSH Surgical History History of right hip replacement Family History Father Hypertension Mother No problems noted. 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 Speaking full sentences. Skin: Warm dry throughout Eye: EOMI HENT: Airway patent. Uvula midline. No pharyngeal erythema or edema. No ELECTRIC POWER LINE REPAIRER. Bilateral canals clear. TM non-erythematous, non-bulging. No TM perforation or hemotympanum noted. Respiratory: + wheeze throughout with crackle at R base appreciated Cardiac: RRR. No murmur Neurology: A/O. No aphasia or facial droop. Psych: Good mood and affect Office Procedures Nebulizer Treatment Nebulizer Treatment [id number]/[id number] RX initial, or Nebulizer Subsequent Treatment Office Meds ipratropium 0.5 mg-albuterol 3 mg (2.5 mg base)/3 mL nebulization soln Performing Provider: Stefany Wharton PA-C Performing Location: [facility] Administered by: Yeimi Garcia on 06/21/24 15:11 Dose Route Admin Location Dispensed Lot Number Expiration Date NDC Clinical Data Assistant 3 mL inhalation 3 mL [id number] 09/29/25 84079-041-39 [employer] Assessment & Plan Assessment & Plan (1) Wheeze: Code(s): R06.2 - Wheezing Plan: Pt seen and evaluated Breathing tx Duoneb ordered pt re-evaluated 3:28 and greatly improved aeration and O2 96% Azithromycin to pharmacy Imodium to pharmacy as upon discharge pt states he had experienced some loose stool F/U with PCP ER if worse Pt gave verbal understanding and all questions answered Orders: Orders AMB Nebulizer Treatment Today R06.2 - Wheezing Medications: New azithromycin start on day 2 of therapy2 tablets day 1, then 1 tablet daily until complete 250 mg PO DAILY 6 days 6 tabs 0RF loperamide (Imodium A-D) 4mg initial dose. Then 2mg after each loose BM. No more than 8mg per day 2 mg PO Q6H PRN 14 tabs 0RF loose stool Coding Level of Care Code Est Pt Level 3 (75098) Diagnoses Wheeze R06.2 CPT Codes Nebulizer Treatment - Nebulizer Treatment, initial or subsequent: [id number]/MDI RX initial, or Nebulizer Subsequent Treatment ([id number])
== END 2024-06-21 15:42 | disposition home or self-care (01) ==
PROVIDERS: PCP Internal Medicine; Visit Provider Physician Assistant
DX: R06.2 Wheezing (principal)
CPT/HCPCS: 94640; 99213; J7620

== ENCOUNTER 2024-06-30 12:12 | Outpatient (AMB) | payer MEDICARE, SELFPAY ==
[2024-06-30 12:25] VITALS: BP 132/88; PULSE 68; TEMP 37.2; O2SAT 96; BMI 33.9
--- NOTE | 2024-06-30 12:25 | MHC.OFFWIV ---
Intake Vital Signs 06/30/24 12:25 Height 5 ft 11 in Weight 243 lb BMI 33.9 BP 132/88 Blood Pressure Location Lt brachial Position Sitting Pulse 68 Pulse Source Pulse Oximeter Temp 99.0 F Temp Source Oral Pulse Oximetry (%) 96 Oxygen Delivery Method Room Air Intake Visit Reasons: possible brochities Intake Note: pt is here for possible bronchitis. Cough, requesting work note Patient Tobacco Use Status: Never used Tobacco Allergies No Known Allergies Allergy (Verified 06/30/24 12:25) Do you need a note to return to daycare/school/sports/work: Yes HPI possible brochities HPI Details This note is constructed using voice recognition software. While every effort has been made to ensure accuracy, social and human services assistant errors may have been included. The patient is a 69 year old male who presents to the clinic today with concern for cough for the past several weeks. He has been seen several times for cough, as well as insomnia related to the cough in the last few weeks. He has been evaluated on June 15, , and . In those visits he has had a flu and COVID tests which has been normal, a negative chest x-ray. He has been treated with both prednisone and azithromycin. He has also been provided nebulizer treatment, and has albuterol inhaler at home. Initially he has been declining to take time off of work. He reports his beathing is nearly completely resolved, but his cough has lead him to not sleep well as he feels the rattling in his chest. He denies wheezing, fever, dyspnea. He reports that he is able to get up white secretions. He is a former smoker but has not smoked in many years. He reports that he is primarily looking for a note for work as he is now ready to take a couple of days off to rest. He reports that he is able to fall asleep and relatively stay asleep but does get woken up and this is what is leading him to feel more tired. He does not feel that his fatigue is worsening. He does not feel that he needs medication to treat the insomnia. [facility] Surgical History History of right hip replacement Family History Father Hypertension Mother No problems noted. 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 Cognitive needs: No Hearing needs: No Vision needs: Yes Review of Systems Const All systems reviewed & are unremarkable except as noted in HPI and below Physical Exam Vital Signs: Last Vital Signs Temp 99.0 F 06/30/24 12:25 Pulse 68 06/30/24 12:25 BP 132/88 06/30/24 12:25 Pulse Ox 96 06/30/24 12:25 Oxygen Delivery Method Room Air 06/30/24 12:25 BMI result Body Mass Index 33.9 Const General: cooperative, healthy appearing, comfortable and no acute distress Orientation/consciousness: patient oriented x3 Limitations: no limitations HEENT Head: Yes normal to inspection Ears: hearing grossly normal bilaterally, external ears normal and TM's normal bilaterally General nose exam: Normal external nose present, Normal nares present and No nasal discharge present Face and sinus: Yes normal facial exam and Yes sinuses nontender Mouth: Normal oral and palatal mucosa present and moist mucous membranes Throat: Yes posterior oropharynx normal, Yes tonsils normal and Yes uvula midline Eyes General: appearance normal, both eyes and all related structures Neck Neck: Yes normal visual inspection Resp Effort & Inspection: normal respiratory effort, able to speak in complete sentences, Actively coughing, no respiratory distress, not tachypneic, no tripod positioning and no use of accessory muscles Auscultation: clear to auscultation bilaterally Cardio Jugular venous distension: no JVD Rate: regular rate Rhythm: regular rhythm Heart sounds: S1 normal heart sound present, S2 normal heart sound present, no click, no gallops, no murmurs and no rubs Skin General skin exam: no rashes or lesions noted, elasticity normal and turgor normal Neuro General: patient oriented x3 Extrem General: Yes normal to inspection and Yes no clubbing, cyanosis or edema Assessment & Plan Assessment & Plan (1) Cough: Code(s): R05.9 - Cough, unspecified Qualifiers: Cough type: acute Qualified Code(s): R05.1 - Acute cough Plan: Nearly resolved, likely postviral tussive syndrome. Discussed treatment options, however patient has declined at this time. He reports that he has adequate medication at home including CHARITY. Advised patient to follow up with primary care provider. (2) Insomnia: Code(s): G47.00 - Insomnia, unspecified Qualifiers: Insomnia type: unspecified Qualified Code(s): G47.00 - Insomnia, unspecified Plan: Likely secondary to post viral tussive syndrome. Advised use of [id number] antihistamine such as Benadryl to facilitate with sleep. Provided letter to remain out of work for 2 days to obtain adequate rest. Advised patient to follow up with primary care provider Plan See above for full details and plan. Coding Level of Care Code Est Pt Level 3 (88176) Diagnoses Acute cough R05.1 Cough type: acute Insomnia, unspecified type G47.00 Insomnia type: unspecified
== END 2024-06-30 14:15 | disposition home or self-care (01) ==
PROVIDERS: PCP Internal Medicine; Visit Provider Registered Nurse
DX: R05.1 Acute cough (principal); G47.00 Insomnia, unspecified
CPT/HCPCS: 99213

== ENCOUNTER 2024-10-17 11:16 | Outpatient (AMB) | payer MEDICARE, SELFPAY ==
[2024-10-17 11:29] VITALS: BP 120/70; PULSE 60; O2SAT 94; BMI 35.6
--- NOTE | 2024-10-17 11:29 | A.OFFPC_ITS ---
Vital Signs 10/17/24 11:29 Height 5 ft 11 in Weight 255 lb BMI 35.6 BP 120/70 Blood Pressure Location Lt brachial Position Sitting Pulse 60 Pulse Source Pulse Oximeter Pulse Oximetry (%) 94 Oxygen Delivery Method Room Air Intake Visit Reasons: Annual PE - see comments Intake Note: Pt is here today for PE. Allergies No Known Allergies Allergy (Verified 10/17/24 11:30) Medication List - Last Reconciled 10/17/24 by Reena Ozuna MD albuterol sulfate 90 mcg/actuation 2 puffs inhalation Q4-6H PRN 30 days Anoro Ellipta 62.5-25 mcg/actuation (umeclidinium-vilanterol) 1 inh inhalation DAILY NS atorvastatin 40 mg PO DAILY chlorthalidone 25 mg PO DAILY citalopram 40 mg PO DAILY compr.stocking,knee,long,x-lrg As directed diclofenac sodium 1% 2 grams topical QID lidocaine 5% (Lidoderm) 1 patch topical DAILY loperamide (Imodium A-D) 2 mg PO Q6H PRN Tobacco use date assessed: 10/17/24 Fall risk assessment: 2 + Falls in past year Last assessed Fall Risk: 10/17/24 Dental Screening Dental Screen Date: 10/17/24 Did you have a dental visit in the last 12 months?: Yes Did you have a dental problem in the last 6 months where you did not have access to dental care?: No Was dental information given to patient?: Patient has dentist HPI Annual PE - see comments HPI Details Pt presents for PE. PFSH Surgical History History of right hip replacement Family History Father Hypertension Mother No problems noted. 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 How often do you have a drink containing alcohol?: Never 3. How often do you have six or more drinks on one occasion?: Never Total Score: 0 GENARO-7 AMB Questionnaire GENARO-7 Date GENARO - 7 assessed: 03/29/24 Source: Developed by Drs. Sukhwinder Ellington, Mary Randall, Thaddeus Black and colleagues, with an educational waleska from [employer]. Review of Systems Const All systems reviewed & are unremarkable except as noted in HPI and below Eyes Reports no additional complaints ENT Reports no additional complaints Card Reports no additional complaints Resp Reports no additional complaints GI Reports no additional complaints Reports no additional complaints Physical exam (Primary Care) Vital Signs: Last Vital Signs Pulse 60 10/17/24 11:29 BP 120/70 10/17/24 11:29 Pulse Ox 94 10/17/24 11:29 Oxygen Delivery Method Room Air 10/17/24 11:29 BMI result Body Mass Index 35.6 Tobacco/Smoking Status: Tobacco use Status Tobacco use date assessed 10/17/24 10/17/24 11:37 Patient Tobacco Use Status Never used Tobacco 10/17/24 11:37 e-Cigarette/Vaping Use Never Used 10/17/24 11:29 Thrive Assessment: Date of Thrive Assessment Date Thrive assessed 03/29/24 10/17/24 11:29 Const General: no acute distress HENMT Head: Yes normal to inspection Face and sinus: Yes normal facial exam Throat: Yes posterior oropharynx normal Eyes General: appearance normal, both eyes and all related structures Neck Neck: Yes no lymphadenopathy and Yes supple Resp Effort & Inspection: normal respiratory effort Auscultation: clear to auscultation bilaterally Cardio Rhythm: regular rhythm Heart sounds: S1 normal heart sound present and S2 normal heart sound present GI Inspection: Yes normal to inspection Palpation (GI): Soft to palpation Percussion: Yes normal to percussion Auscultation: normal bowel sounds Coding Level of Care Code Est Pt Prev Care >65y(63611) Diagnoses Hypertension I10 Hyperlipidemia E78.5 Annual physical exam Z00.00 Screening for colon cancer Z12.11 Chronic bronchitis J42 Assessment & Plan Assessment & Plan (1) Hypertension: Code(s): I10 - Essential (primary) hypertension Category: Medical Plan: Continue chlorthalidone (2) Hyperlipidemia: Code(s): E78.5 - Hyperlipidemia, unspecified Category: Medical Plan: Continue statin return for fasting blood work (3) Annual physical exam: Code(s): Z00.00 - Encounter for general adult medical examination without abnormal findings Category: Medical Plan: Well-balanced diet regular physical activity weight loss discussed with the patient. Return in 6 months with a fasting labs before (4) Screening for colon cancer: Comment: negative Cologuard 2021 Code(s): Z12.11 - Encounter for screening for malignant neoplasm of colon Category: Medical Plan: Patient declined colonoscopy (5) Chronic bronchitis: Comment: on Anoro Code(s): J42 - Unspecified chronic bronchitis Category: Medical Plan: Continue Anoro Orders: Orders Comprehensive [place]. Panel Fast 6 Months E78.5 - Hyperlipidemia, unspecified, I10 - Essential (primary) hypertension Hemoglobin A1c 6 Months E78.5 - Hyperlipidemia, unspecified, I10 - Essential (primary) hypertension Complete Blood Count Auto Diff 6 Months E78.5 - Hyperlipidemia, unspecified, I10 - Essential (primary) hypertension Lipid Panel 6 Months E78.5 - Hyperlipidemia, unspecified, I10 - Essential (primary) hypertension UA w Microscopic 6 Months E78.5 - Hyperlipidemia, unspecified, I10 - Essential (primary) hypertension Medications: Refilled Anoro Ellipta 62.5-25 mcg/actuation (umeclidinium-vilanterol) 1 inh inhalation DAILY 60 ea 4RF NS citalopram 40 mg PO DAILY 90 tabs 3RF
== END 2024-10-17 12:08 | disposition home or self-care (01) ==
PROVIDERS: PCP Internal Medicine; Visit Provider Internal Medicine
DX: Z00.00 Encounter for general adult medical examination without abnormal findings (principal); I10 Essential (primary) hypertension; E78.5 Hyperlipidemia, unspecified; J42 Unspecified chronic bronchitis; Z12.11 Encounter for screening for malignant neoplasm of colon

== ENCOUNTER → 2024-10-17 11:16 | Outpatient (BNVA) | payer MEDICARE, SELFPAY | PROVIDERS: PCP Internal Medicine; Visit Provider Internal Medicine | DX: Z00.00 Encounter for general adult medical examination without abnormal findings (principal); I10 Essential (primary) hypertension; E78.5 Hyperlipidemia, unspecified; J42 Unspecified chronic bronchitis | CPT/HCPCS: 99397 ==

== ENCOUNTER 2024-11-16 15:28 | Outpatient (AMB) | payer MEDICARE, SELFPAY ==
--- NOTE | 2024-11-16 15:41 | AM.OFFWIN_ITS ---
Intake Vital Signs 11/16/24 15:43 Weight 254 lb BP 126/80 Blood Pressure Location Rt brachial Position Sitting Pulse 58 Pulse Source Pulse Oximeter Pulse Oximetry (%) 97 Oxygen Delivery Method Room Air Intake Visit Reasons: EP Rt heel pain Intake Note: Patient here for right heel pain that has been present for about 3 days. Patient Tobacco Use Status: Never used Tobacco Allergies No Known Allergies Allergy (Verified 10/17/24 11:30) Do you need a note to return to daycare/school/sports/work: No HPI EP Rt heel pain HPI Details This note is constructed using voice recognition software. While every effort has been made to ensure accuracy, design architect errors may have been included. The patient is a 69 year old male who presents to the clinic today with right heel pain for the last 3 days. He notes that last week he hit his left foot on a door, and since then he has been walking slightly off. He notes the pain to be in the posterior heel region. He does not feel that he is walking any differently on the right foot. He tried an Inder wrap as he felt that the there might have been some swelling, it helped the pain. He has not taken any medication as of yet. He denies redness, warmth, injury to that area.. [facility] Surgical History History of right hip replacement Family History Father Hypertension Mother No problems noted. 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 Cognitive needs: No Hearing needs: No Vision needs: Yes Review of Systems Const All systems reviewed & are unremarkable except as noted in HPI and below Physical Exam Vital Signs: Last Vital Signs Pulse 58 11/16/24 15:43 BP 126/80 11/16/24 15:43 Pulse Ox 97 11/16/24 15:43 Oxygen Delivery Method Room Air 11/16/24 15:43 Const General: cooperative, healthy appearing, comfortable, no acute distress and well developed Orientation/consciousness: patient oriented x3 Limitations: no limitations Resp Effort & Inspection: normal respiratory effort and able to speak in complete sentences GI Inspection: Yes normal to inspection Palpation (GI): Soft to palpation and nontender Skin General skin exam: no rashes or lesions noted Neuro General: patient oriented x3 Extrem Other: Inflammation present to right posterior calcaneal region, with tenderness on palpation. No erythema, warmth, lesions. Achilles intact. Ankle full range of motion. Distal neurovascular exam intact. General: Yes normal to inspection Assessment & Plan Assessment & Plan (1) Heel pain: Code(s): M79.673 - Pain in unspecified foot Qualifiers: Laterality: right Qualified Code(s): M79.671 - Pain in right foot Plan: Given the response to Inder wrap, advised ongoing use of compression. Advised elevation, ice, and addition of NSAIDs as able for pain management. Advised patient to follow up as needed with worsening symptoms or failure to resolve. No indication for imaging today based on history and physical examination. Plan See above for full details and plan. Coding Level of Care Code Est Pt Level 3 (76876) Diagnoses Pain of right heel M79.671 Laterality: right
[2024-11-16 15:43] VITALS: BP 126/80; PULSE 58; O2SAT 97
--- OUTSIDE RECORDS SUMMARY | 2024-11-16 16:02 | XMS_ITS ---
Author Organization [facility] Address [address] [facility] [place] [address] Care Team Providers Care Vacuum Worker Name Role Phone Reena Ozuna MD Primary Care Provider Julia Mendoza [phone] REASON FOR VISIT CX 06/01/24 Encounters Encounter Location Date Provider Diagnosis [address] [place] [address] 05/31/2024 Julia Angel Plan Of Treatment No Information Progress Notes * HERNANDemian MontejoDOB:[birth year] (69 yo M)Acc No.[id number]:05/31/2024 Patient:?Demian Marquez :1955???Age:69 Y???Sex:Male Address:[address] [place] [address], [address], [place] [address] * true * Date:? Generated for Elvai milan/Felicity/eTransmitting on:?11/16/2024 04:02 PM EST
--- OUTSIDE RECORDS SUMMARY | 2024-11-16 16:02 | XMS_ITS ---
Author Organization [facility] Address [address] [place] [address] Care Team Providers Care Pre Press Operator Name Role Phone Sulma YANEZ, Reena Primary Care Provider Julia Mendoza Unavailable [phone] Encounters Encounter Location Date Provider Diagnosis [facility] [address] [place] [address] 06/01/2024 Julia Angel Plan Of Treatment No Information Progress Notes * Demian CHILDRESSDOB:[birth year] (69 yo M)Acc No.[id number]:06/01/2024 Progress Note Patient:?Demian CHILDRESS Provider:?Julia Angel DPM :1955???Age:69 Y???Sex:Male Sundeep e:06/01/2024 Address:[address] [place] [address], [address], [id number] Pcp:Reena Ozuna MD Subjective: * Chief Complaints: * ??? * Medical History:? Objective: * Vitals:? Assessment: Plan: * Treatment: * Images: * The named appointment provid er may or may not be the originator of this progress note, and it is not deemed complete until electronically signed by the appointment provider. Sign off status: Pending * Provider:?Julia Angel DPM Date:?01/2024 Generated for Caprice yates/Felicity/eTransmitting on:?11/16/2024 04:01 PM EST
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
--- OUTSIDE RECORDS SUMMARY | 2024-11-16 16:02 | XMS_ITS | Patient Health Record ---
Author Organization [facility] Address [address] [place] [address] Care Team Providers Care Winding Operator Name Role Phone Reena Ozuna MD Primary Care Provider Julia Mendoza Unavailable [phone] Humberto Newman Unavailable [phone] Allergies No Known Allergies Reason For Referral No Information Medications Medication SIG (Take, Route, Frequency, Duration) [...] Problem Status W/U Status Risk Notes Problem [id number] Primary osteoarthritis of left foot (M19.072) Active confirmed Problem Acquired cavus deformity of left foot (disorder) (8384746242159711) Cavus deformity of left foot (Q66.72) Active confirmed Vital Signs Height 5 ft 11 in in 03/18/2024 Weight 262 lbs 03/18/2024 BMI 36.54 kg/m2 03/18/2024 Encounters Encounter Location Date Provider Diagnosis [facility] [address] [place] [address] 03/18/2024 Julia Angel Pain in left foot M79.672 ; Posterior tibial tendinitis of left lower extremity M76.822 ; Tinea unguium B35.1 ; Pain in right toe(s) M79.674 ; Pain in left toe(s) M79.675 ; Flat foot [pes planus] (acquired), left foot M21.42 and Primary osteoarthritis of left foot M19.072 [facility] [address] [address] 12/08/2023 Humberto Newman [facility] [address] [address] 01/20/2024 [facility] [address] 05/31/2024 Julia Angel Assessments Encounter Date Diagnosis (ICD Code) Assessment [...] X ray : Foot, left 3V 03/18/2024 Insurance Providers Payer Name Payer Address Payer Phone Subscriber Number Group Number Insured Name Patient Relationship to Insured Coverage Start Date Coverage End Date [employer] Medicare Complete [address] [address] [place] [address] [phone] [id number] Demian Marquez Self - patient is the insured Medical (General) History Medical History History ICD Code Anxiety Arthritis Back,Hip,and Knee pain Depression Gall bladder problems High blood pressure Sciatica Surgical History Surgery Date(Month/Year) right hip replacement 2004
== END 2024-11-16 16:11 | disposition home or self-care (01) ==
PROVIDERS: PCP Internal Medicine; Visit Provider Registered Nurse
DX: M79.671 Pain in right foot (principal)

== ENCOUNTER → 2024-11-16 15:28 | Outpatient (BNVA) | payer MEDICARE, SELFPAY | PROVIDERS: PCP Internal Medicine; Visit Provider Registered Nurse | DX: M79.671 Pain in right foot (principal) | CPT/HCPCS: 99212 ==

== ENCOUNTER 2025-01-16 14:42 | Outpatient (AMB) | payer MEDICARE, SELFPAY ==
--- NOTE | 2025-01-16 14:49 | AM.OFFWIN_ITS ---
Intake Vital Signs 01/16/25 14:51 Height 5 ft 11 in Weight 252 lb BMI 35.1 BP 122/90 H Blood Pressure Location Lt brachial Position Sitting Pulse 77 Pulse Source Pulse Oximeter Temp 98.6 F Temp Source Oral Pulse Oximetry (%) 94 Oxygen Delivery Method Room Air Intake Visit Reasons: EP ?infection eyes/exhaustion Intake Note: Patient here for deep cough, wheezing,fatigue that has been present for about 2 days. Patient Tobacco Use Status: Never used Tobacco Allergies No Known Allergies Allergy (Verified 01/16/25 14:52) Do you need a note to return to daycare/school/sports/work: No HPI HPI Comments History of Present Illness Details 69 y/o male patient who presents to the walk in clinic with c/o URI symptoms x 2 days. Pt c/o fatigue, cough , body chills, wheezing, and SOB. [facility] Medical History (Updated 01/16/25 @ 14:56 by Shakira Austin NP) Acute respiratory disease Surgical History History of right hip replacement Family History Father Hypertension Mother No problems noted. 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 Cognitive needs: No Hearing needs: No Vision needs: Yes Review of Systems Const All systems reviewed & are unremarkable except as noted in HPI and below Physical Exam Vital Signs: Last Vital Signs Temp 98.6 F 01/16/25 14:51 Pulse 77 01/16/25 14:51 BP 122/90 H 01/16/25 14:51 Pulse Ox 94 01/16/25 14:51 Oxygen Delivery Method Room Air 01/16/25 14:51 BMI result Body Mass Index 35.1 Const General: cooperative, no acute distress, lethargic and poor hygiene Nutritional Appearance: obese Orientation/consciousness: patient oriented x3 and lethargic HEENT Head: Yes normocephalic Ears: external ears normal and TM abnormal with fluid behind the TM bilateral General nose exam: Normal external nose present and Nasal discharge present Face and sinus: Yes sinuses nontender Mouth: moist mucous membranes Throat: Yes uvula midline Resp Effort & Inspection: normal respiratory effort, able to speak in complete sentences, no audible wheezes and Actively coughing Auscultation: no crackles, no rales, no rhonchi and wheezes Cardio Heart sounds: S1 normal heart sound present and S2 normal heart sound present Neuro General: patient oriented x3 Assessment & Plan Assessment & Plan (1) Acute respiratory disease: Code(s): J06.9 - Acute upper respiratory infection, unspecified Plan: Ordered SARs Ordered Z-pack Rest and hydrate well with warm fluids. Ordered Cough medicine (2) Cough: Code(s): R05.9 - Cough, unspecified Qualifiers: Cough type: acute Qualified Code(s): R05.1 - Acute cough Plan: Ordered SARs Ordered Z-pack Rest and hydrate well with warm fluids. Ordered Cough medicine (3) Wheeze: Code(s): R06.2 - Wheezing Plan: Ordered SARs Ordered Z-pack Rest and hydrate well with warm fluids. Ordered Cough medicine Orders: Orders SARS-CoV2/FLU/RSV Today J06.9 - Acute upper respiratory infection, unspecified Medications: New prednisone 50 mg PO DAILY 5 days 5 tabs 0RF R05.1 - Acute cough, R06.2 - Wheezing azithromycin 500 mg PO DAILY 3 days 3 tabs 0RF J06.9 - Acute upper respiratory infection, unspecified, R05.1 - Acute cough benzonatate 100 mg PO TID 90 caps 0RF cough R05.1 - Acute cough Coding Level of Care Code Est Pt Level 4 (32110) Diagnoses Acute respiratory disease J06.9 Acute cough R05.1 Cough type: acute Wheeze R06.2 Time Spent (min) 20
[2025-01-16 14:51] VITALS: BP 122/90; PULSE 77; TEMP 37; O2SAT 94; BMI 35.1
== END 2025-01-16 15:13 | disposition home or self-care (01) ==
PROVIDERS: PCP Internal Medicine; Visit Provider Nurse Practitioner Family
DX: J06.9 Acute upper respiratory infection, unspecified (principal); R05.1 Acute cough; R06.2 Wheezing

== ENCOUNTER 2025-01-16 14:42 | Outpatient (REF) | payer MEDICARE, SELFPAY ==
--- OUTSIDE RECORDS SUMMARY | 2025-01-16 15:07 | XMS_ITS ---
Author Organization [facility] Dayron larissa [place] Address [address] [facility] [place] [address] Care Team Providers Care Warehouse Receiver Name Role Phone Reena Ozuna MD Primary Care Provider Jimeneza Anam Bell Unavailable [phone] REASON FOR VISIT PCP: 10/2024, Heel pain Medications Medication SIG (Take, Route, Frequency, Duration) Notes Start Date End Date Status Diclofenac Sodium 75 MG 1 tablet with fo od Orally Twice a day for 30 days 12/13/2024 Active Citalopram Hydrobromide 20 [...] cigs/day) Encounters Encounter Location Date Provider Diagnosis [facility] [address] [place] [address] 01/03/2025 Anam Montano Pain in right foot M79.671 [...] Next Appt Details Follow Up: prn, Reason: Progress Notes * Demian CHILDRESSDOB:[birth year] (69 yo M)Acc No.[id number]:01/03/2025 Progress Notes Patient:?Demian CHILDRESS Provider:?Anam Montano D.P.M. :1955???Age:69 Y???Sex:Male Sundeep e:01/03/2025 Address:[address] [place] [address], [address], [facility] Pcp:Reena Ozuna MD Subjective: * Chief Complaints: * ???1. PCP: 10/2024. 2. Heel pain. * HPI: ???Heel pain:?Nature:?aching, burning, pulling.?Location:?Proximal plantar aspect of Heel, RIGHT.?Duration:?several months.?Onset/Cause:?walking.?Course:?improved, at approximately 30 %.?Aggravated:?standing, walking, walking first thing in the morning/after rest, NSAID's.?Treatments:?rest/alter normal daily activity.?Severity/Quality:?States 6 out of 10.?Misc:?Patient states previous conservative therapy has not provided acceptable relief. Despite previous treatments/efforts, patient continues to relate substantial pain and significant functional disability during activity.? * ROS:?General/Constitutional:?Nausea?denies.?Vomiting?denies.?Hunger Thirst?denies.?Loss appetite?denies.?Chills?denies.?Fatigue?denies.?Fever?denies.?Night Sweats?denies.?Unexplained weight loss?denies.?Unexplained weight gain?denies.?HEENTM:?Dentures?denies.?Dizziness?denies.?Glasses/contacts?admits.?Retinopathy?de nies.?Blurred/double vision?denies.?TMJ?denies.?Discharge/drainage?denies.?Implants?denies.?Sore throat?denies.?Dental implants?denies.?Hard of hearing ?denies.?Difficulty chewing/swallowing/speaking?denies.?Nose bleeds?denies.?Sore mouth?denies.?Respiratory:?On Oxygen?denies.?Pneumonia/pleurisy?denies.?Bronchitis?denies.?Emphysema?denies.?C oughing?denies.?Cough blood?denies.?Shortness of breath?denies.?Wheezing?denies.?Cardiovascular:?Pacemaker?denies.?MVP?denies.?WPW?denies.?CHF?denies.?Heart attack?denies.?Septal defect?denies.?Rapid beat?denies.?Chest pain ?denies.?Atrial Fib.?denies.?Murmur/Palpitations?denies.?Gastrointestinal:?Hemorrhoids?denies.?Stomach/Abdominal pain?denies.?Dark blood stool?denies.?Irritable bowel ?denies.?Constipation?denies.?Diarrhea?denies.?Hematology:?Swelling?denies.?Clots?denies.?Varicose Veins?denies.?Bruising?denies.?Bleeding problem?denies.?Genitourinary:?Blood urine?denies.?Frequent/Painfu/urination/bladder control?denies.?Kidney stones?denies.?Infection (UTI)?denies.?Nephropathy?denies.?sex trans dis (STD)?denies.?Prostate?denies.?Musculoskeletal:?Hammertoes?denies.?Bunions?denies.?Back Pain?denies.?Muscle Cramps/ Resting?denies.?Muscle cramps / walking?denies.?Generalized aches and pains?denies.?Weakness?denies.?Integ.:?Dihllon?denies.?Scars?denies.?Corns/calluses?denies.?Ingrown nails?denies.?Painful nails?admits.?Open Sores?denies.?Rashes?denies.?Neurologic:?Difficulty sleeping?denies.?Brain disorder?denies.?Numbness?denies.?Balance trouble?denies.?Confusion?denies.?Fainting/blackouts?denies.?Tingling?denies.?Tr emors?denies.? * Medical History:?Anxiety, Ar thritis, Back,Hip,and Knee pain, Depression, Gall bladder problems, High blood pressure, Sciatica. * Family History:?Mother: dece ased, diagnosed with Unspecified heart disease.?Father: , diagnosed with Other malignant neoplasm of unspecified site, Unspecified essential hypertension.?Siblings: diagnosed with Diabetic - NIDDM.? * Social History:?Tobacco Use:?Tobacco use other than smoking?Are you an other tobacco user??No ?Tobacco Control (Standard)?Tobacco use:?Current smoker ?How often do you smoke cigarettes??Every day ?How many cigarettes a day do you smoke??5 or less ?How soon after you wake up do you smoke your first cigarette??6-30 minutes ?Are you interested in quitting??Not ready to quit ?Additional Findings: Tobacco user?Light cigarette smoker (1-9 cigs/day) * Medications:?Taking Atorvast atin Calcium 40 MG Tablet 1 tablet Orally [...] and reconciled with the patient Objective: * Vitals:? * Examination: ???General Examination: ?GENERAL APPEARANCE:?Reveals a pleasant, alert, well-nourished, well- developed, well hydrated individual, who demonstrates proper attention to hygiene/body habitus, and is in no acute distress.?ORIENTED:?person, place, and time , person, place, and time.?Neurological: ?SENSORY:?Neurological exam reveals intact sensorium, pain sensation normal, vibration sensation intact, pinprick sensation is normal in the lower extremities, Pt denies, anesthesia, burning, paresthesia, tingling, B/L??.?TINEL'S COMPRESSION:?Negative tarsal tunnel, mirian pedis, and medial calcaneal nerves.?DEEP TENDON REFLEXES:?Achilles, 2/4, B/L.?Vascular: ?DP PULSES (B):?3/4, B/L??.?PT PULSES (B):?3/4, B/L??.?CAPILLARY FILL TIME:?immediate, all digits, B/L?.?TROPHIC CONDITION-TEXTURE/ELASTICITY/TURGOR/HAIR GROWTH (B):?normal, B/L??.?TEMPERTURE GRADIENT (C):?warm to cool, proximal to distal, B/L??.?PIGMENTATION:?normal, B/L?.?EDEMA (C):?absent, B/L??.?Dermatologic: ?SKIN FINDINGS:?Skin exam reveals normal texture, elasticity, and turgor. There are no masses. The interspaces are clear?.?Orthopedic: ?MUSCLE STRENGTH:?5/5 all groups in a symmetrical fashion , B/L.?GAIT ABNORMALITY:? Pronated abducted angle and base of gate L>R , antalgic.?FOOT MORPHOLOGY:? LEFT Pes Planus structure Semi-flexible Decreased Ankle joint dorsiflexion ROM, knee extended , Pes Planus structure, Decreased Ankle joint dorsiflexion ROM, knee extended.?FOOTWEAR:?shoe gear properties exacerbate patients foot/toe deformity.?Heel Pain: ?INSPECTION:? Pain on Palpation to Plantar Fascia med. and central bands, intrinsic musc., infra-calcaneal bursa, and med calc tubercle , RIGHT foot, No pain: posterior/superior heel, achilles bursa/tendon, sinus tarsi, peroneals, or with lateral heel compression; no limited STJ ROM, calor, or ecchymosis.? Assessment: * Assessment: 1.?Pain in right foot - M79. 671???2.?Calcaneal spur, right foot - M77.31 (Primary)???3.?Plantar fasciitis of right foot - M72.2???Specify :Acute problem, Stable Response to treatment - Improvement??? Plan: * Treatment: * Preventive Medicine:? ??Counseling:?Discussion:?-13: Office or other outpatient visit for the [...] have encouraged the patient to call the office.?Stretching Exercises:?Stretching and deep tissue massage exercises for the patients injury/diagnosis were discussed and demonstrated, handouts were dispensed.? ??Screening/Special Tests:?Fall Risk?Screening:?No falls in the past year ?FALLS: Screening for Future Fall Risk?Have you had any falls with injury in the past year??No * Follow Up:?prn * Images: * The named appointment provid er may or may not be the originator of this progress note, and it is not deemed complete until electronically signed by the appointment provider. Sign off status: Pending * Provider:?Anam Montano D.P.M. Date:?02/2025 Generated for Caprice yates/Felicity/Marileeitting on:?01/16/2025 03:07 PM EST History and Physical Notes * [...] Decreased Ankle joint dorsiflexion ROM, knee extended FOOTWEAR: shoe gear properties exacerbate patients foot/toe deformity MUSCLE STRENGTH: 5/5 [...]
--- OUTSIDE RECORDS SUMMARY | 2025-01-16 15:08 | XMS_ITS ---
Author [facility] Address [address] [facility] [place] [address] Care Team Providers Care Mass Spectrometry Specialist Name Role Phone Reena Ozuna MD Primary Care Provider Anam Dior Unavailable [phone] REASON FOR VISIT PCP: 10/2024, Heel pain [...] a day for 30 days 12/13/2024 Active Encounters Encounter Location Date [facility] [address] 12/27/2024 Anam Montano Pain in right foot [...] Appt Details Follow Up: 2 Weeks, Reason: Progress Notes * Zeus CHILDRESS:[birth year] (69 yo M)Acc No.[id number]:12/27/2024 Progress Notes Patient:?Demian CHILDRESS Provider:?Anam Montano D.P.M. :1955???Age:69 Y???Sex:Male Sundeep e:12/27/2024 Address:[address] [place] [address], [address], [facility] Pcp:Reena Ozuna MD Subjective: * Chief Complaints: * ???1. PCP: 10/2024. 2. Heel pain. * HPI: ???Heel pain:?Nature:?aching, burning, pulling.?Location:?Proximal plantar aspect of Heel, RIGHT.?Duration:?several months.?Onset/Cause:?walking.?Course:?improved, at approximately 75 %.?Aggravated:?standing, walking, walking first thing in the morning/after rest.?Treatments:?rest/alter normal daily activity.?Severity/Quality:?States 3 out of 10.?Misc:?Patient states previous conservative therapy [...] cramps / walking?denies.?Generalized aches and pains?denies.?Weakness?denies.?Integ.:?Dhillon?denies.?Scars?denies.?Corns/calluses?denies.?Ingrown nails?denies.?Painful nails?admits.?Open Sores?denies.?Rashes?denies.?Neurologic:?Difficulty sleeping?denies.?Brain disorder?denies.?Numbness?denies.?Balance trouble?denies.?Confusion?denies.?Fainting/blackouts?denies.?Tingling?denies.?Tr emors?denies.? * Medical History:? * Medications:?Taking Atorvast atin Calcium 40 MG [...] of right foot - M72.2???Specify :Acute problem, Complicated w/ Multiple Tx Options(4),Dx New problem, Prognosis Uncertain (4)??? Plan: * Treatment: * Preventive Medicine:? ??Counseling:?Discussion:?-13: [...] injury in the past year??No * Follow Up:?2 Weeks * Images: * The named appointment provid er may or may not be the originator of this progress note, and it is not deemed complete until electronically signed by the appointment provider. Sign off status: Pending * Provider:?Anam Montano D.P.M. Date:?12/01 Generated for Caprice yates/Felicity/Millysmitting on:?01/16/2025 03:07 PM EST History and Physical [...]
--- OUTSIDE RECORDS SUMMARY | 2025-01-16 15:08 | XMS_ITS ---
Author Organization [facility] Address [address] [facility] [place] [address] Care Team Providers Care Mechanical Engineering Coop Name Role Phone Reena Ozuna MD Primary Care Provider Unavaila Anam Bell [phone] REASON FOR VISIT NS 01/03 APPT Encounters Encounter Location Date Provider Diagnosis [address] [place] [address] 01/03/2025 Anam Montano Plan Of Treatment No Information Progress Notes * Demian CHILDRESSDOB:[birth year] (69 yo M)Acc No.[id number]:01/03/2025 Patient:?Demian CHILDRESS :1955???Age:69 Y???Sex:Male Address:[address] [place] [address], [address], [place] [address] * true * Date:? Generated for Elvai milan/Felicity/eTransmitting on:?01/16/2025 03:07 PM EST
[2025-01-16 18:28] LABS: Influenza A PCR POSITIVE (Negative); Influenza B PCR NEGATIVE (Negative); Resp Syncy Virus RNA Qual PCR NEGATIVE (Negative); SARS COV2 PCR INHOUSE NEGATIVE (Negative)
== END 2025-01-16 14:43 | disposition home or self-care (01) ==
LOC: HO.LAB 14:42
PROVIDERS: PCP Internal Medicine; Visit Provider Nurse Practitioner Family
DX: J06.9 Acute upper respiratory infection, unspecified (principal); R05.1 Acute cough; R06.2 Wheezing
CPT/HCPCS: 0241U; 99212

== ENCOUNTER 2025-01-25 13:13 | Outpatient (AMB) | payer MEDICARE, SELFPAY ==
--- NOTE | 2025-01-25 13:57 | MHC.OFFWIV ---
Intake Vital Signs 01/25/25 13:58 Height 5 ft 11 in Weight 241 lb BMI 33.6 BP 120/90 H Blood Pressure Location Rt brachial Position Sitting Respiration 16 Pulse 70 Pulse Source Pulse Oximeter Temp 98.5 F Temp Source Oral Pulse Oximetry (%) 93 Oxygen Delivery Method Room Air Intake Visit Reasons: EP pain on LT leg Intake Note: Pt is here today c/o Lt lower leg pain x4days Patient Tobacco Use Status: Never used Tobacco Allergies No Known Allergies Allergy (Verified 01/25/25 14:09) HPI HPI Comments History of Present Illness Details History of Present Illness - The patient is a 69-year-old male presenting with complaints of pain in the left hip and lateral calf region. - The pain began approximately five days ago, with no identified trauma. - It is associated with a muscle that appears more prominent than usual in the calf area and possible protrusion. - No prior relevant imaging or diagnosis for this specific issue was discussed. - The patient also reports hip pain extending back a month, with exacerbation upon palpation - There is a history of right hip replacement from 2004 due to pain and insurance coverage at the time. Physical Exam General: Cooperative, healthy appearing, comfortable, no acute distress and well developed Orientation: Patient oriented x3 Head: Normal to inspection Ears: Hearing grossly normal bilaterally Nose: Normal external nose present Face and sinus: Normal facial exam Eyes: Appearance normal, both eyes and all related structures Neck: Normal visual inspection and Yes full ROM Respiratory: Normal respiratory effort and able to speak in complete sentences. Skin: No rashes or lesions noted Neuro: Patient oriented x3 Extremities: Varicose veins noted on the left lower lateral leg, varicose veins present in area of tenderness. left hip full ROM, TTP in left hip bursa. [facility] Medical History (Updated 01/25/25 @ 14:27 by Kassandra Abarca PA-C) Acute respiratory disease Surgical History History of right hip replacement Family History Father Hypertension Mother No problems noted. 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 Naproxen 500 mg was prescribed, to be taken every 12 hours x3 days then PRN. An x-ray of the left hip was ordered to examine potential causes such as arthritis. Ice application and activity modification were advised to support recovery. The potential role of varicose veins in the patient's symptoms was acknowledged, with a potential follow-up with a vascular specialist via PCP if needed. Patient was informed and verbally consented to the use of an ambient scribe for clinic note documentation during this visit. Orders: Orders XR hip LT w PEL1V Today M25.552 - Pain in left hip Medications: New naproxen 500 mg PO Q12H PRN 20 tabs 0RF pain Coding Level of Care Code Est Pt Level 4 (69630) Diagnoses Left hip pain M25.552
[2025-01-25 13:58] VITALS: BP 120/90; PULSE 70; RESP 16; TEMP 36.9; O2SAT 93; BMI 33.6
--- OUTSIDE RECORDS SUMMARY | 2025-01-25 16:12 | XMS_ITS ---
Author Organization [facility] Address [address] [facility] [place] [address] Care Team Providers Care Drilling Manager Name Role Phone Reena Ozuna MD Primary Care Provider Anam Dior Unavailable [phone] REASON FOR VISIT PCP: 10/2024, Heel pain [...] Encounters Encounter Location Date [facility] [address] 12/27/2024 Anam Montano Pain in right foot [...] * Zeus CHILDRESS:[birth year] (69 yo M)Acc No.[id number]:12/27/2024 Progress Notes Patient:?Demian CHILDRESS Provider:?Anam Montano D.P.M. :1955???Age:69 Y???Sex:Male Sundeep e:12/27/2024 Address:[address] [place] [address], [address], [facility] Pcp:Reena Ozuna MD Subjective: * Chief Complaints: [...] Montano D.P.M. Date:?12/01 Generated for Caprice yates/Felicity/Millysmitting on:?01/25/2025 04:12 PM EST History and Physical Notes * [...]
--- OUTSIDE RECORDS SUMMARY | 2025-01-25 16:12 | XMS_ITS ---
Author Organization [facility] Address [address] [facility] [place] [address] Care Team Providers Care Yard Associate Name Role Phone Reena Ozuna MD Primary Care Provider Unavaila Anam Bell [phone] REASON FOR VISIT NS 01/03 APPT Encounters Encounter Location Date Provider Diagnosis [address] [place] [address] 01/03/2025 Anam Montano Plan Of Treatment No Information Progress Notes * Demian CHILDRESSDOB:[birth year] (69 yo M)Acc No.[id number]:01/03/2025 Patient:?Demian CHILDRESS :1955???Age:69 Y???Sex:Male Address:[address] [place] [address], [address], [place] [address] * true * Date:? Generated for Elvai milan/Felicity/eTransmitting on:?01/25/2025 04:12 PM EST
--- OUTSIDE RECORDS SUMMARY | 2025-01-25 16:12 | XMS_ITS | Patient Health Record ---
Author Organization [facility] Address [address] [place] [address] Care Team Providers Care Clinical Mental Health Counselor Name Role Phone Reena Ozuna MD Primary Care Provider Anam Dior Unavailable [phone] Julia Angel Unavailable [phone] Allergies No Known Allergies Reason For Referral [...] Notes Problem Plantar fasciitis of right foot ([id number] 9101) Plantar fasciitis of right foot (M72.2) Active confirmed Vital Signs Blood pressure diastolic 65 mm Hg 12/13/2024 Height 5ft 11in in 12/13/2024 Blood pressure systolic 104 mm Hg 12/13/2024 Weight 245 lbs 12/13/2024 BMI 34.17 kg/m2 12/13/2024 Encounters Encounter Location Date Provider Diagnosis [address] [address] 12/13/2024 Anam Montano Pain in right foot M79.671 ; Calcaneal spur, right foot M77.31 and Plantar fasciitis of right foot M72.[address] [address] 03/18/2024 Julia Perica Pain in left foot M79.672 ; Posterior tibial tendinitis of left lower extremity M76.822 ; Tinea unguium B35.1 ; Pain in right toe(s) M79.674 ; Pain in left toe(s) M79.675 ; Flat foot [pes planus] (acquired), left foot M21.42 and Primary osteoarthritis of left foot M19.[address] [address] 05/31/2024 Julia Angel [address] [address] 12/08/2024 Julia Angel [address] [address] 12/27/2024 Anam Montano [address] [address] 01/03/2025 Anam Montano Assessments Encounter Date Diagnosis (ICD Code) Assessment Notes Treatment Notes Treatment Clinical Notes Section Notes 03/18/2024 Pain in left foot (ICD-10 - M79.672) 03/18/2024 Posterior tibial tendinitis of left lower extremity (ICD-10 - M76.822) 12/13/2024 Pain in right foot (ICD-10 - M79.671) 12/13/2024 Calcaneal spur, right foot (ICD-10 - M77.31) 12/13/2024 Plantar fasciitis of right foot (ICD-10 - M72.2) Patient Educated with: HEEL CORD STRETCHES.pdf (HEEL CORD STRETCHES.pdf ) Patient Educated with: RICE THERAPY.pdf (RICE THERAPY.pdf) 03/18/2024 Tinea unguium (ICD-10 - B35.1) 03/18/2024 [...] X ray : Foot, left 3V 03/18/2024 X ray : Foot, right 3V 12/13/2024 Insurance Providers Payer Name Payer Address Payer Phone Subscriber Number Group Number Insured Name Patient Relationship to Insured Coverage Start Date Coverage End Date AARP Medicare Complete [address] [address] [place] [address] [id number] Demian Marquez Self - patient is the insured Medical (General) History Medical History History ICD Code Anxiety Arthritis Back,Hip,and Knee pain Depression Gall bladder problems High blood pressure Sciatica Surgical History Surgery Date(Month/Year) right hip replacement 2004
--- OUTSIDE RECORDS SUMMARY | 2025-01-25 16:12 | XMS_ITS ---
[facility] Address [address] [facility] [place] [address] Care Team Providers Care Self Defense Instructor Name Role Phone Reena Ozuna MD Primary Care Provider Jimeneza Anam Bell Unavailable [phone] REASON FOR VISIT PCP: 10/2024, Heel pain [...] cigs/day) Encounters Encounter Location Date Provider Diagnosis [facility] [address] [address] 01/03/2025 Anam Montano Pain in right foot [...] * Demian CHILDRESSDOB:[birth year] (69 yo M)Acc No.[id number]:01/03/2025 Progress Notes Patient:?Demian CHILDRESS Provider:?Anam Montano D.P.M. :1955???Age:69 Y???Sex:Male Sundeep e:01/03/2025 Address:[address] [place] [address], [address], [facility] Pcp:Reena Ozuna MD Subjective: * Chief Complaints: [...] Montano D.P.M. Date:?02/2025 Generated for Caprice yates/Felicity/Marileeitting on:?01/25/2025 04:11 PM EST History and Physical Notes * [...]
== END 2025-01-25 14:40 | disposition home or self-care (01) ==
PROVIDERS: PCP Internal Medicine; Visit Provider Physician Assistant
DX: M25.552 Pain in left hip (principal)

== ENCOUNTER 2025-01-25 13:13 | Outpatient (REF) | payer MEDICARE, SELFPAY ==
--- NOTE | ~2025-01-25 | XR_ITS ---
EXAMINATION: XR HIP 1 VIEW LEFT WITH PELVIS HISTORY: M25.552 - Pain in left hip COMPARISON: Comparison is made with the prior examination of the pelvis dated 09/14/2023. FINDINGS: Two AP views of the pelvis and two views of the left hip are submitted. Osseous mineralization is normal. There is no fracture or dislocation. There is severe osteoarthritis with joint space narrowing and osteophyte formation. Findings have progressed since the prior study. The patient is status post right total hip arthroplasty. The soft tissues are unremarkable. XR/XR hip LT w PEL1V IMPRESSION: Severe osteoarthritis of the left hip with progression since the prior study. Electronically signed by: Sukhwinder Fox MD 01/25/2025 03:44 PM EST
== END 2025-01-25 13:14 | disposition home or self-care (01) ==
LOC: HO.HMGCX 13:13
PROVIDERS: PCP Internal Medicine; Visit Provider Physician Assistant
DX: M25.552 Pain in left hip (principal)
CPT/HCPCS: 73502; 99212

== ENCOUNTER → 2025-01-25 14:32 | Outpatient (BNV) | payer MEDICARE, SELFPAY | PROVIDERS: PCP Internal Medicine; Visit Provider Radiology Diagnostic Radiology | DX: M25.552 Pain in left hip (principal); M16.12 Unilateral primary osteoarthritis, left hip | CPT/HCPCS: 73502 ==

== ENCOUNTER 2025-02-10 09:00 | Outpatient (AMB) | payer MEDICARE, SELFPAY ==
[2025-02-10 09:27] VITALS: BP 118/70; PULSE 55; RESP 18; TEMP 36.8; O2SAT 96; BMI 34.7
--- NOTE | 2025-02-10 09:27 | MHC.PC.OV ---
Vital Signs 02/10/25 09:27 Height 5 ft 11 in Weight 249 lb BMI 34.7 BP 118/70 Blood Pressure Location Rt brachial Position Sitting Respiration 18 Pulse 55 Pulse Source Pulse Oximeter Temp 98.3 F Temp Source Oral Pulse Oximetry (%) 96 Oxygen Delivery Method Room Air Intake Visit Reasons: LT. Calf Pain Intake Note: Pt is here today for a sick visit. Pt c/o constant L lower leg pain Allergies No Known Allergies Allergy (Verified 02/10/25 09:29) Medication List - Last Reconciled 02/10/25 by Reena Ozuna MD Anoro Ellipta 62.5-25 mcg/actuation (umeclidinium-vilanterol) 1 inh inhalation DAILY NS atorvastatin 40 mg PO DAILY benzonatate 100 mg PO TID chlorthalidone 25 mg PO DAILY citalopram 40 mg PO DAILY compr.stocking,knee,long,x-lrg As directed loperamide (Imodium A-D) 2 mg PO Q6H PRN naproxen 500 mg PO Q12H PRN Tobacco use date assessed: 02/10/25 Fall risk assessment: 2 + Falls in past year Last assessed Fall Risk: 02/10/25 Dental Screening Dental Screen Date: 02/10/25 Did you have a dental visit in the last 12 months?: Yes Did you have a dental problem in the last 6 months where you did not have access to dental care?: No Was dental information given to patient?: Patient has dentist HPI LT. Calf Pain HPI Details Patient presents for the follow-up of left lower extremity pain worse when starting to walk slightly improved with activity for 3 months. The pain starts in the lateral thigh and radiates to left calf area. Patient denies calf swelling or erythema but there is slight tenderness over the area. Patient was prescribed naproxen which has been slightly helpful. Left hip x-rays showed advanced osteoarthritis and patient has an appointment with the orthopedic surgeon at [facility] in 2 months. Hypertension hyperlipidemia are controlled on current medications. [facility] Medical History (Updated 02/10/25 @ 10:09 by Reena Ozuna MD) Acute respiratory disease Surgical History History of right hip replacement Family History Father Hypertension Mother No problems noted. 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 [address]476 - PHQ-9 Billing: Patient declined-do not bill Source: Developed by Drs. Sukhwinder Ellington, Mary Randall, Thaddeus Black and colleagues, with an educational waleska from [employer] Thrive Questionnaire Date Thrive assessed: 02/10/25 I am a: Patient What is your living situation today?: I choose not to answer this question Within the past 12 months, did the food you bought not last and you didn't have the money to get more?: I choose not to answer this question Within the past 12 months, did you worry whether your food would run out before you got money to buy more?: I choose not to answer this question Do you have trouble paying for medicines?: I choose not to answer this question Do you have trouble getting transportation to medical appointments?: I choose not to answer this question Do you have trouble paying your heating and electricity bill?: I choose not to answer this question Do you have trouble taking care of your child, family member or friend?: I choose not to answer this question Do you have trouble with day-to-day activities such as bathing, preparing meals, shopping, managing finances, etc.?: I choose not to answer this question Are you currently unemployed and looking for a job?: I choose not to answer this question Are you interested in more education?: I choose not to answer this question THRIVE Score: 0 GENARO-7 AMB Questionnaire GENARO-7 Date GENARO - 7 assessed: 02/10/25 Source: Developed by Drs. Sukhwinder Ellington, Mary Randall, Thaddeus Black and colleagues, with an educational waleska from [employer] Review of Systems Const All systems reviewed & are unremarkable except as noted in HPI and below Eyes Reports no additional complaints ENT Reports no additional complaints Card Reports no additional complaints Resp Reports no additional complaints GI Reports no additional complaints Reports no additional complaints Physical exam (Primary Care) Vital Signs: Last Vital Signs Temp 98.3 F 02/10/25 09:27 Pulse 55 02/10/25 09:27 Resp 18 02/10/25 09:27 BP 118/70 02/10/25 09:27 Pulse Ox 96 02/10/25 09:27 Oxygen Delivery Method Room Air 02/10/25 09:27 BMI result Body Mass Index 34.7 Tobacco/Smoking Status: Tobacco use Status Tobacco use date assessed 02/10/25 02/10/25 09:29 Patient Tobacco Use Status Never used Tobacco 02/10/25 09:29 e-Cigarette/Vaping Use Never Used 02/10/25 09:27 Thrive Assessment: Date of Thrive Assessment Date Thrive assessed 02/10/25 02/10/25 09:46 Const General: no acute distress Eyes General: appearance normal, both eyes and all related structures Neck Neck: Yes supple Resp Effort & Inspection: normal respiratory effort Auscultation: diminished lung sounds Cardio Rhythm: regular rhythm Heart sounds: S1 normal heart sound present and S2 normal heart sound present Extrem Other: There is significantly decreased range of motion left hip, straight leg rising 90 degrees bilaterally, left calf there is no erythema warmth but there is a slight tenderness and varicose veins present Coding Level of Care Code Est Pt Level 4 (64308) Diagnoses Leg pain, left M79.605 Left hip pain M25.552 Chronic bronchitis J42 Hypertension I10 Overweight E66.3 Assessment & Plan Assessment & Plan (1) Leg pain, left: Code(s): M79.605 - Pain in left leg Category: Medical Plan: Obtain ultrasound to rule out DVT (2) Left hip pain: Code(s): M25.552 - Pain in left hip Category: Medical Plan: Referred to physical therapy follow-up with orthopedic surgeon (3) Chronic bronchitis: Comment: on Anoro Code(s): J42 - Unspecified chronic bronchitis Category: Medical Plan: Restart Anoro (4) Hypertension: Code(s): I10 - Essential (primary) hypertension Category: Medical Plan: Continue chlorthalidone patient will return for fasting blood work (5) Overweight: Code(s): E66.3 - Overweight Category: Medical Plan: Decreasing caloric intake increasing physical activity and weight loss discussed with the patient Orders: Orders Complete Blood Count Auto Diff Today E78.5 - Hyperlipidemia, unspecified, I10 - Essential (primary) hypertension Comprehensive [place]. Panel Fast Today E78.5 - Hyperlipidemia, unspecified, I10 - Essential (primary) hypertension Lipid Panel Today E78.5 - Hyperlipidemia, unspecified, I10 - Essential (primary) hypertension Hemoglobin A1c Today E78.5 - Hyperlipidemia, unspecified, I10 - Essential (primary) hypertension venous duplex LE LT Today M79.605 - Pain in left leg PT Evaluation and Treatment Today M25.552 - Pain in left hip TSH reflex Free T4 Today E78.5 - Hyperlipidemia, unspecified, I10 - Essential (primary) hypertension Vitamin B12 and Folate Today E78.5 - Hyperlipidemia, unspecified, I10 - Essential (primary) hypertension Medications: New acyclovir 5% 1 appl topical QID 5 grams 3RF Refilled Anoro Ellipta 62.5-25 mcg/actuation (umeclidinium-vilanterol) 1 inh inhalation DAILY 60 ea 4RF NS
--- OUTSIDE RECORDS SUMMARY | 2025-02-10 09:30 | XMS_ITS ---
Author Organization [facility] Address [address] [facility] [place] [address] Care Team Providers Care Automatic Glove Turner And Former Name Role Phone Reena Ozuna MD Primary Care Provider Anam Dior Unavailable [phone] REASON FOR VISIT PCP: 10/2024, Heel pain [...] Active Encounters Encounter [facility] [address] [facility]/27/[facility] Anam Montano Pain in right foot [...] * Zeus CHILDRESS:[birth year] (69 yo M)Acc No.[id number]:12/27/2024 Progress Notes Patient:?Demian CHILDRESS Provider:?Anam Montano D.P.M. :1955???Age:69 Y???Sex:Male Sundeep e:12/27/2024 Address:[address] [place] [address], [address], [facility] Pcp:Reena Ozuna MD Subjective: * Chief Complaints: [...] Montano D.P.M. Date:?12/01 Generated for Caprice yates/Felicity/Millysmitting on:?02/10/2025 09:30 AM EDT History and Physical Notes * [...]
--- OUTSIDE RECORDS SUMMARY | 2025-02-10 09:30 | XMS_ITS ---
[facility] [place] Address [address] [facility] [place] [address] Care Team Providers Care Forestry Technician Name Role Phone Reena Ozuna MD Primary Care Provider Jimeneza Anam Bell Unavailable [phone] REASON FOR VISIT PCP: 10/2024, Heel pain [...] cigs/day) Encounters Encounter Location Date Provider Diagnosis [facility] [address] [place] [address] 01/03/2025 Anam Montano Pain in right foot [...] * Demian CHILDRESSDOB:[birth year] (69 yo M)Acc No.[id number]:01/03/2025 Progress Notes Patient:?Demian CHILDRESS Provider:?Anam Montano D.P.M. :1955???Age:69 Y???Sex:Male Sundeep e:01/03/2025 Address:[address] [place] [address], [address], [facility] Pcp:Reena Ozuna MD Subjective: * Chief Complaints: [...] Montano D.P.M. Date:?02/2025 Generated for Caprice yates/Felicity/Marileeitting on:?02/10/2025 09:30 AM EDT History and Physical [...]
--- OUTSIDE RECORDS SUMMARY | 2025-02-10 09:30 | XMS_ITS | Patient Health Record ---
Author Organization [facility] Address [address] [facility] [place] [address] Care Team Providers Care Title I Instructional Assistant Name Role Phone Reena Ozuna MD Primary Care Provider Anam Dior Unavailable [phone] Julia Angel Unavailable [phone] Allergies No Known Allergies Reason For Referral [...] Notes Problem Plantar fasciitis of right foot ([id number] 9101) Plantar fasciitis of right foot (M72.2) Active confirmed Vital Signs Blood pressure diastolic 65 mm Hg 12/13/2024 Height 5ft 11in in 12/13/2024 Blood pressure systolic 104 mm Hg 12/13/2024 Weight 245 lbs 12/13/2024 BMI 34.17 kg/m2 12/13/2024 Encounters Encounter Location Date Provider Diagnosis [address] [address] 12/13/2024 Anam Montano Pain in right foot M79.671 ; Calcaneal spur, right foot M77.31 and Plantar fasciitis of right foot M72.[address] [address] 03/18/2024 Julia Perica Pain in left foot M79.672 ; Posterior tibial tendinitis of left lower extremity M76.822 ; Tinea unguium B35.1 ; Pain in right toe(s) M79.674 ; Pain in left toe(s) M79.675 ; Flat foot [pes planus] (acquired), left foot M21.42 and Primary osteoarthritis of left foot M19.[address] [address] 05/31/2024 Julia Angel [address] [address] 12/08/2024 Julia Angel [address] [address] 12/27/2024 Anam Montano [address] [address] 01/03/2025 Anam Montano Assessments Encounter Date Diagnosis [...] End Date AARP Medicare Complete [address] [address] [place] [id number] Demian Marquez Self - patient is the insured Medical (General) History Medical History History ICD Code Anxiety Arthritis Back,Hip,and Knee pain Depression Gall bladder problems High blood pressure Sciatica Surgical History Surgery Date(Month/Year) right hip replacement 2004
--- OUTSIDE RECORDS SUMMARY | 2025-02-10 09:31 | XMS_ITS ---
Author Organization [facility] Address [address] [facility] [place] [address] Care Team Providers Care Spraying Machine Operator Name Role Phone Sulma YANEZ, Reena Primary Care Provider Unavaila Anam Bell [phone] REASON FOR VISIT NS 01/03 APPT Encounters Encounter Location Date Provider Diagnosis [address] [place] [address] 01/03/2025 Anam Montano Plan Of Treatment No Information Progress Notes * Demian CHILDRESSDOB:[birth year] (69 yo M)Acc No.[id number]:01/03/2025 Patient:?Demian CHILDRESS :1955???Age:69 Y???Sex:Male Address:[address] [place] [address], [address], [place] [address] * true * Date:? Generated for Elvai milan/Felicity/eTransmitting on:?02/10/2025 09:30 AM EDT
== END 2025-02-10 10:45 | disposition home or self-care (01) ==
LOC: HO.HMCC 09:01
PROVIDERS: PCP Internal Medicine; Visit Provider Internal Medicine
DX: M79.605 Pain in left leg (principal); M25.552 Pain in left hip; J42 Unspecified chronic bronchitis; I10 Essential (primary) hypertension; E66.3 Overweight

== ENCOUNTER 2025-02-10 10:29 | Outpatient (REF) | payer MEDICARE, SELFPAY ==
--- NOTE | ~2025-02-10 | US_ITS ---
EXAMINATION: US LOWER EXTREMITY VEINS LIMITED FOLLOW UP LEFT HISTORY: M79.605 - Pain in left leg COMPARISON: There are no prior studies for comparison. TECHNIQUE: Duplex and color Doppler sonographic examination of the deep venous system of the left lower extremity was performed. FINDINGS: The common femoral, superficial femoral, and popliteal veins are patent demonstrating normal compressibility, spontaneous flow, and augmentation. There is a normal color and spectral Doppler waveform appearance of the visualized deep venous system above the knee. The posterior tibial veins are patent. There is limited visualization of the peroneal veins. US/US venous duplex LE LT IMPRESSION: No evidence of acute DVT in the left lower extremity. Electronically signed by: Sukhwinder Fox MD 02/10/2025 11:00 AM EDT
== END 2025-02-10 10:30 | disposition home or self-care (01) ==
LOC: HO.HMGCX 10:29
PROVIDERS: PCP Internal Medicine; Visit Provider Internal Medicine
DX: M79.605 Pain in left leg (principal); M25.552 Pain in left hip; J42 Unspecified chronic bronchitis; I10 Essential (primary) hypertension; E66.3 Overweight
CPT/HCPCS: 93971; 99212

== ENCOUNTER → 2025-02-10 10:32 | Outpatient (BNV) | payer MEDICARE, SELFPAY | PROVIDERS: PCP Internal Medicine; Visit Provider Radiology Diagnostic Radiology | DX: M79.605 Pain in left leg (principal) | CPT/HCPCS: 93971 ==

== ENCOUNTER 2025-02-27 10:52 | Outpatient (REF) | payer MEDICARE, SELFPAY ==
--- NOTE | ~2025-02-27 | XR_ITS ---
EXAMINATION: XR ANKLE 3 OR MORE VIEWS RIGHT HISTORY: M25.571 - Pain in right ankle and joints of right foot COMPARISON: There are no prior studies for comparison. FINDINGS: Three views of the right ankle are submitted. Osseous mineralization is normal. There is no fracture or dislocation. The joint spaces are preserved. There are tiny soft tissue calcifications adjacent to the medial malleolus and at the posterior aspect of the ankle. XR/XR ankle RT min 3V IMPRESSION: No evidence of fracture of the right ankle. Electronically signed by: Sukhwinder Fox MD 02/28/2025 11:31 AM EDT
== END 2025-02-27 10:53 | disposition home or self-care (01) ==
LOC: HO.HMGCX 10:52
PROVIDERS: PCP Internal Medicine; Visit Provider Internal Medicine
DX: M25.571 Pain in right ankle and joints of right foot (principal); J42 Unspecified chronic bronchitis; M16.12 Unilateral primary osteoarthritis, left hip; Z96.641 Presence of right artificial hip joint
CPT/HCPCS: 73610; 96127; 99212

== ENCOUNTER 2025-02-27 10:52 | Outpatient (AMB) | payer MEDICARE, SELFPAY ==
[2025-02-27 11:00] VITALS: BP 112/76; PULSE 61; RESP 18; TEMP 37; O2SAT 95; BMI 34.0
--- NOTE | 2025-02-27 11:00 | A.OFFPC_ITS ---
Vital Signs 02/27/25 11:00 Height 5 ft 11 in Weight 244 lb BMI 34.0 BP 112/76 Blood Pressure Location Rt brachial Position Sitting Respiration 18 Pulse 61 Pulse Source Pulse Oximeter Temp 98.6 F Temp Source Oral Pulse Oximetry (%) 95 Oxygen Delivery Method Room Air Intake Visit Reasons: Pain on RT heel Intake Note: Pt is here today for a sick visit. Pt c/p R heel pain. Allergies No Known Allergies Allergy (Verified 02/10/25 09:29) Medication List - Last Reconciled 02/27/25 by Reena Ozuna MD acyclovir 5% 1 appl topical QID Anoro Ellipta 62.5-25 mcg/actuation (umeclidinium-vilanterol) 1 inh inhalation DAILY NS atorvastatin 40 mg PO DAILY benzonatate 100 mg PO TID chlorthalidone 25 mg PO DAILY citalopram 40 mg PO DAILY compr.stocking,knee,long,x-lrg As directed loperamide (Imodium A-D) 2 mg PO Q6H PRN naproxen 500 mg PO Q12H PRN Tobacco use date assessed: 02/27/25 Dental Screening Dental Screen Date: 02/10/25 HPI Pain on RT heel HPI Details Patient presents complaining of right ankle pain worse when walking for 2 days. Patient denies joint swelling erythema warmth or injury. He has severe osteoarthritis of the left hip and has been compensating with the right leg when walking. COPD is stable on Anoro PFSH Medical History Acute respiratory disease Surgical History History of right hip replacement Family History Father Hypertension Mother No problems noted. 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 1. Little interest or pleasure in doing things: more than half the days 2. Feeling down, depressed, or hopeless: more than half the days 3. Trouble falling or staying asleep, or sleeping too much: more than half the days 4. Feeling tired or having little energy: more than half the days 5. Poor appetite or overeating: not at all 6. Feeling bad about yourself - or that you are a failure or have let yourself or your family down: nearly every day 7. Trouble concentrating on things, such as reading the newspaper or watching television: not at all 8. Moving or speaking so slowly that other people could have noticed. Or the opposite - being so fidgety or restless that you have been moving around a lot more than usual: not at all 9. Thoughts that you would be better off or of hurting yourself in some way: not at all Total score: 11 Depression Screening Interpretation: Positive (Continue citalopram patient is looking for counselor) Depression Screening Follow-up: Existing condition and In treatment Depression Screening Done: Yes [address]2812 - PHQ-9 Billing: Yes Source: Developed by Drs. Sukhwinder Ellington, Mary Randall, Thaddeus Black and colleagues, with an educational waleska from [employer]. Thrive Questionnaire Date Thrive assessed: 02/10/25 Review of Systems Const All systems reviewed & are unremarkable except as noted in HPI and below ENT Reports no additional complaints Card Reports no additional complaints Resp Reports no additional complaints GI Reports no additional complaints Reports no additional complaints Physical exam (Primary Care) Vital Signs: Last Vital Signs Temp 98.6 F 02/27/25 11:00 Pulse 61 02/27/25 11:00 Resp 18 02/27/25 11:00 BP 112/76 02/27/25 11:00 Pulse Ox 95 02/27/25 11:00 Oxygen Delivery Method Room Air 02/27/25 11:00 BMI result Body Mass Index 34.0 Tobacco/Smoking Status: Tobacco use Status Tobacco use date assessed 02/27/25 02/27/25 11:14 Patient Tobacco Use Status Never used Tobacco 02/27/25 11:00 e-Cigarette/Vaping Use Never Used 02/27/25 11:00 PHQ-9: PHQ-9 Score PHQ-9: Total score 11 02/27/25 11:15 Depression Screening Interpretation: Positive (Continue citalopram patient is looking for counselor) Depression Screening Follow-up: Existing condition and In treatment Thrive Assessment: Date of Thrive Assessment Date Thrive assessed 02/10/25 02/27/25 11:00 Const General: no acute distress Neck Neck: Yes supple Resp Effort & Inspection: normal respiratory effort Auscultation: clear to auscultation bilaterally Cardio Rhythm: regular rhythm Heart sounds: S1 normal heart sound present and S2 normal heart sound present Extrem Other: Slightly decreased range of motion of the right ankle tenderness over the Achilles tendon no joint swelling erythema warmth Coding Level of Care Code Est Pt Level 3 (57591) Diagnoses Ankle pain, right M25.571 Chronic bronchitis J42 Additional Codes PHQ-9 - 07703 - PHQ-9 Billing: Yes ([id number]) Assessment & Plan Assessment & Plan (1) Ankle pain, right: Code(s): M25.571 - Pain in right ankle and joints of right foot Category: Medical Plan: Check x-ray, naproxen 500 mg twice a day for 1 week is prescribed. If the symptoms persist patient will be referred to physical therapy (2) Chronic bronchitis: Comment: on Anoro Code(s): J42 - Unspecified chronic bronchitis Category: Medical Plan: Continue Anoro Medications: Changed From naproxen 500 mg PO Q12H PRN 20 tabs 0RF pain To naproxen 500 mg PO Q12H 30 tabs 0RF
--- OUTSIDE RECORDS SUMMARY | 2025-02-27 12:18 | XMS_ITS ---
Author Organization [facility] Address [address] [facility] [place] [address] Care Team Providers Care Histology Supervisor Name Role Phone Reena Ozuna MD Primary Care Provider Anam Dior Unavailable [phone] REASON FOR VISIT PCP: 10/2024, Heel pain [...] Active Encounters En[facility] [address] [facility]/27/[facility] Anam Montano Pain in right foot [...] * Zeus CHILDRESS:[birth year] (69 yo M)Acc No.[id number]:12/27/2024 Progress Notes Patient:?Demian CHILDRESS Provider:?Anam Montano D.P.M. :1955???Age:69 Y???Sex:Male Sundeep e:12/27/2024 Address:[address] [place] [address], [address], [facility] Pcp:Reena Ozuna MD Subjective: * Chief Complaints: [...] structure, Decreased Ankle joint dorsiflexion ROM, knee extended.?FOOTWEAR EVALUATION:?shoe gear properties exacerbate patients foot/toe deformity.?Heel Pain: [...] Provider:?Anam Montano D.P.M. Date:?12/01 Generated for Caprice yates/Felicity/Marileeitting on:?02/27/2025 12:18 PM EDT History and Physical Notes * HPI [...]
--- OUTSIDE RECORDS SUMMARY | 2025-02-27 12:18 | XMS_ITS | Patient Health Record ---
Author Organization [facility] Address [address] [facility] [place] [address] Care Team Providers Care Global Sales Manager Name Role Phone Reena Ozuna MD Primary Care Provider Anam Dior Unavailable [phone] Julia Angel Unavailable [phone] Allergies No Known Allergies Reason For Referral [...] Notes Problem Plantar fasciitis of right foot ([id number] 9101) Plantar fasciitis of right foot (M72.2) Active confirmed Vital Signs Blood pressure diastolic 65 mm Hg 12/13/2024 Height 5ft 11in in 12/13/2024 Blood pressure systolic 104 mm Hg 12/13/2024 Weight 245 lbs 12/13/2024 BMI 34.17 kg/m2 12/13/2024 Encounters Encounter Location Date Provider Diagnosis [address] [address] 12/13/2024 Anam Montano Pain in right foot M79.671 ; Calcaneal spur, right foot M77.31 and Plantar fasciitis of right foot M72.[address] [address] 03/18/2024 Julia Perica Pain in left foot M79.672 ; Posterior tibial tendinitis of left lower extremity M76.822 ; Tinea unguium B35.1 ; Pain in right toe(s) M79.674 ; Pain in left toe(s) M79.675 ; Flat foot [pes planus] (acquired), left foot M21.42 and Primary osteoarthritis of left foot M19.[address] [address] 05/31/2024 Julia Angel [address] [address] 12/08/2024 Julia Angel [address] [address] 12/27/2024 Anam Montano [address] [address] 01/03/2025 Anam Montano Assessments Encounter Date Diagnosis [...] End Date AARP Medicare Complete [address] [address] [place] [address] [phone] [id number] Demian Marquez Self - patient is the insured Medical (General) History Medical History History ICD Code Anxiety Arthritis Back,Hip,and Knee pain Depression Gall bladder problems High blood pressure Sciatica Surgical History Surgery Date(Month/Year) right hip replacement 2004
--- OUTSIDE RECORDS SUMMARY | 2025-02-27 12:18 | XMS_ITS ---
[facility] [place] Address [address] [facility] [place] [address] Care Team Providers Care Vertica Architect Name Role Phone Reena Ozuna MD Primary Care Provider Jimeneza Anam Bell Unavailable [phone] REASON FOR VISIT PCP: 10/2024, Heel pain [...] cigs/day) Encounters Encounter Location Date Provider Diagnosis [facility] [address] [place] [address] 01/03/2025 Anam Montano Pain in right foot [...] * Demian CHILDRESSDOB:[birth year] (69 yo M)Acc No.[id number]:01/03/2025 Progress Notes Patient:?Demian CHILDRESS Provider:?Anam Montano D.P.M. :1955???Age:69 Y???Sex:Male Sundeep e:01/03/2025 Address:[address] [place] [address], [address], [facility] Pcp:Reena Ozuna MD Subjective: * Chief Complaints: [...] Montano D.P.M. Date:?02/2025 Generated for Caprice yates/Felicity/Marileeitting on:?02/27/2025 12:18 PM [...]
--- OUTSIDE RECORDS SUMMARY | 2025-02-27 12:18 | XMS_ITS ---
Author Organization [facility] Address [address] [facility] [place] [address] Care Team Providers Care Manager Meeting Name Role Phone Reena Ozuna MD Primary Care Provider Unavaila Anam Bell [phone] REASON FOR VISIT NS 01/03 APPT Encounters Encounter Location Date Provider Diagnosis [address] [place] [address] 01/03/2025 Anam Montano Plan Of Treatment No Information Progress Notes * Demian CHILDRESSDOB:[birth year] (69 yo M)Acc No.[id number]:01/03/2025 Patient:?Demian CHILDRESS :1955???Age:69 Y???Sex:Male Address:[address] [place] [address], [address], [place] [address] * true * Date:? Generated for Elvai milan/Felicity/eTransmitting on:?02/27/2025 12:18 PM EDT
== END 2025-02-27 12:57 | disposition home or self-care (01) ==
LOC: HO.HMCC 10:53
PROVIDERS: PCP Internal Medicine; Visit Provider Internal Medicine
DX: M25.571 Pain in right ankle and joints of right foot (principal); J42 Unspecified chronic bronchitis

== ENCOUNTER → 2025-02-27 12:09 | Outpatient (BNV) | payer MEDICARE, SELFPAY | PROVIDERS: PCP Internal Medicine; Visit Provider Radiology Diagnostic Radiology | DX: M25.571 Pain in right ankle and joints of right foot (principal) | CPT/HCPCS: 73610 ==

== ENCOUNTER 2025-03-09 10:58 | Outpatient (AMB) | payer MEDICARE, SELFPAY ==
[2025-03-09 10:59] VITALS: BMI 34.0
--- NOTE | 2025-03-09 10:59 | A.OFFVIS_ITS ---
Vital Signs 03/09/25 10:59 Height 5 ft 11 in Weight 244 lb BMI 34.0 Intake Visit Reasons: Newprob-Pain in left hip Intake Note: Demian is a 69 year old male who presents today with new complaints of left hip pain that started about 2 weeks ago. Patient reports pain is localized to the left hip. Patient is unsure of what activities make his pain worse. Patient states he was prescribed naproxen by his PCP which has resolved his symptoms. Denies prior injuries or surgeries to the left hip. Allergies No Known Allergies Allergy (Verified 03/09/25 11:05) Medication List - Last Reconciled 03/09/25 by Rashi Burnham MD acyclovir 5% 1 appl topical QID Anoro Ellipta 62.5-25 mcg/actuation (umeclidinium-vilanterol) 1 inh inhalation DAILY NS atorvastatin 40 mg PO DAILY benzonatate 100 mg PO TID chlorthalidone 25 mg PO DAILY citalopram 40 mg PO DAILY compr.stocking,knee,long,x-lrg As directed loperamide (Imodium A-D) 2 mg PO Q6H PRN naproxen 500 mg PO Q12H PFSH Medical History Acute respiratory disease Surgical History History of right hip replacement Family History Father Hypertension Mother No problems noted. 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 Cognitive needs: No Hearing needs: No Vision needs: Yes Physical Exam Vital Signs: BMI result Body Mass Index 34.0 Const Other: Well-nourished well-developed very friendly male awake alert and oriented x3 in no acute distress Extrem Other: Left hip examination shows decreased range of motion when compared to his right hip, mild discomfort with range of motion, no tenderness over his bursa Results Reviewed Results Reviewed: X-rays of the patient's left hip taken previously show joint space narrowing, subchondral sclerosis, no acute bony abnormalities Assessment & Plan Assessment & Plan (1) Arthritis of left hip: Code(s): M16.12 - Unilateral primary osteoarthritis, left hip Category: Medical Plan Mr. Marquez presents with intermittent left hip discomfort due to degenerative joint disease. I had a lengthy discussion with the patient regarding the treatment options. At this point the patient's symptoms are tolerable to him. He will continue with his activity modifications. He will follow up with me on an as-needed basis should his symptoms worsen any way. Feel free to call me at any time should questions regarding his orthopedic management arise. I spent 21 minutes in reviewing the patient's records and imaging studies, seeing the patient and documenting in the medical record. Coding Level of Care Code Est Pt Level 3 (24011) Complex EM visit Add On G2211 Diagnoses Arthritis of left hip M16.12
--- OUTSIDE RECORDS SUMMARY | 2025-03-09 13:11 | XMS_ITS | Patient Health Record ---
Author Organization [facility] Address [address] [facility] [place] [address] Care Team Providers Care Institutional Cook Name Role Phone Reena Ozuna MD Primary Care Provider Anam Dior Unavailable [phone] Julia Angel Unavailable [phone] Allergies No Known Allergies Reason For Referral [...] Notes Problem Plantar fasciitis of right foot ([id number] 9101) Plantar fasciitis of right foot (M72.2) Active confirmed Vital Signs Blood pressure diastolic 65 mm Hg 12/13/2024 Height 5ft 11in in 12/13/2024 Blood pressure systolic 104 mm Hg 12/13/2024 Weight 245 lbs 12/13/2024 BMI 34.17 kg/m2 12/13/2024 Encounters Encounter Location Date Provider Diagnosis [address] [address] 12/13/2024 Anam Montano Pain in right foot M79.671 ; Calcaneal spur, right foot M77.31 and Plantar fasciitis of right foot M72.[address] [address] 03/18/2024 Julia Perica Pain in left foot M79.672 ; Posterior tibial tendinitis of left lower extremity M76.822 ; Tinea unguium B35.1 ; Pain in right toe(s) M79.674 ; Pain in left toe(s) M79.675 ; Flat foot [pes planus] (acquired), left foot M21.42 and Primary osteoarthritis of left foot M19.[address] [address] 05/31/2024 Julia Angel [address] [address] 12/08/2024 Julia Angel [address] [address] 12/27/2024 Anam Montano [address] [address] 01/03/2025 Anam Montano Assessments Encounter Date Diagnosis [...] End Date AARP Medicare Complete [address] [address] [place] [address] [id number] Demian Marquez Self - patient is the insured Medical (General) History Medical History History ICD Code Anxiety Arthritis Back,Hip,and Knee pain Depression Gall bladder problems High blood pressure Sciatica Surgical History Surgery Date(Month/Year) right hip replacement 2004
--- OUTSIDE RECORDS SUMMARY | 2025-03-09 13:11 | XMS_ITS ---
Author [facility] [place] Address [address] [facility] [place] [address] Care Team Providers Care Research Pharmacist Name Role Phone Reena Ozuna MD Primary Care Provider Jimeneza Anam Bell Unavailable [phone] REASON FOR VISIT PCP: 10/2024, Heel pain [...] cigs/day) Encounters Encounter Location Date Provider Diagnosis [facility] [address] [facility] [place] [address] 01/03/2025 Anam Montano Pain in right foot [...] * Demian CHILDRESSDOB:[birth year] (69 yo M)Acc No.[id number]:01/03/2025 Progress Notes Patient:?Demian CHILDRESS Provider:?Anam Montano D.P.M. :1955???Age:69 Y???Sex:Male Sundeep e:01/03/2025 Address:[address] [place] [address], [address], [facility] Pcp:Reena Ozuna MD Subjective: * Chief Complaints: [...] Montano D.P.M. Date:?02/2025 Generated for Caprice yates/Felicity/Marileeitting on:?03/09/2025 01:11 PM EDT History and Physical Notes * [...]
--- OUTSIDE RECORDS SUMMARY | 2025-03-09 13:12 | XMS_ITS ---
Author Organization [facility] Address [address] [facility] [place] [address] Care Team Providers Care Freight Engineer Name Role Phone Reena Ozuna MD Primary Care Provider Unavaila Anam Bell [phone] REASON FOR VISIT NS 01/03 APPT Encounters Encounter Location Date Provider Diagnosis [address] [place] [address] 01/03/2025 Anam Montano Plan Of Treatment No Information Progress Notes * Demian CHILDRESSDOB:[birth year] (69 yo M)Acc No.[id number]:01/03/2025 Patient:?Demian CHILDRESS :1955???Age:69 Y???Sex:Male Address:[address] [place] [address], [address], [place] [address] * true * Date:? Generated for Elvai milan/Felicity/eTransmitting on:?03/09/2025 01:11 PM EDT
--- OUTSIDE RECORDS SUMMARY | 2025-03-09 13:12 | XMS_ITS ---
[facility] Address [address] [facility] [place] [address] Care Team Providers Care Slip Seat Coverer Name Role Phone Reena Ozuna MD Primary Care Provider Anam Dior Unavailable [phone] REASON FOR VISIT PCP: 10/2024, Heel pain [...] Active Encounters Encounter Location Date Provider Diagnosis [address] [address] 12/27/2024 Anam Montano Pain in right foot [...] * Zeus CHILDRESS:[birth year] (69 yo M)Acc No.[id number]:12/27/2024 Progress Notes Patient:?Demian CHILDRESS Provider:?Anam Montano D.P.M. :1955???Age:69 Y???Sex:Male Sundeep e:12/27/2024 Address:[address] [place] [address], [address], [facility] Pcp:Reena Ozuna MD Subjective: * Chief Complaints: [...] Montano D.P.M. Date:?12/01 Generated for Caprice yates/Felicity/Marileeitting on:?03/09/2025 01:11 PM [...]
== END 2025-03-09 11:19 | disposition home or self-care (01) ==
LOC: HO.HOS 10:58
PROVIDERS: PCP Internal Medicine; Visit Provider Orthopaedic Surgery
DX: M16.12 Unilateral primary osteoarthritis, left hip (principal)
CPT/HCPCS: 99213; G2211

== ENCOUNTER → 2025-03-09 10:58 | Outpatient (BNVA) | payer MEDICARE, SELFPAY | PROVIDERS: PCP Internal Medicine; Visit Provider Orthopaedic Surgery | DX: M16.12 Unilateral primary osteoarthritis, left hip (principal) | CPT/HCPCS: 99212 ==

== ENCOUNTER 2025-03-22 10:00 | Outpatient (RCR) | payer MEDICARE, SELFPAY ==
--- NOTE | 2025-03-16 10:39 | MHC.PT.EP ---
[facility] [place] [facility] [place] [facility] [place] [facility] [address] Hugh Peters [address] [phone] F: [phone] F: [phone] F: [phone] F: [phone] Physical Therapy Plan of Care Date of Evaluation: 03/16/25 Date of Surgery: n/a Diagnosis: L hip pain Assessment: Patient is a 69 year old male presenting to PT with complaints of pain in his L hip. Pt reports onset of pain began at an unknown time due to insidious onset. He presents today with impairments in pain, ROM, hip strength, gait mechanics. 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 Pt expresses intermediate goal of reducing pain, and is motivated to work towards this in PT. Clinical presentation today is most consistent with signs and sx associated with L hip pain and pt will benefit from skilled PT 2 week x 4 weeks to address the following problems and impairments noted upon evaluation: pain, ROM, hip strength, gait mechanics. These problems limit the patient with the following functional activities: ambulating, stair negotiation, ADLs, work. The prescribed treatment plan of care is medically necessary. Co-morbidities of hx R CALVIN, HTN were identified and taken into considerations of plan of care. Pt was educated on HEP, role of PT, prognosis, POC. Frequency and Duration: The patient will be seen 2 x week x 4 weeks Short Term Goals: Pt will demonstrate ability to move through available hip ROM with min to no pain in 2 weeks. Pt will demonstrate improved hip MMT strength by 1/3 grade in 2 weeks. Mcc Goals: Pt will demonstrate improved LEFI score by 9 points in 4 weeks for improved functional mobility. Pt will demonstrate ability to ambulate with min to no pain in 4 weeks for return to PLOF. Pt will demonstrate ability to negotiate stairs with min to no pain in 4 weeks for improved access to his home and community. Treatment Plan: Modalities to reduce pain, spasms and effusion. Manual therapy to restore motion and function. Therapeutic exercise to improve strength and flexibility. Neuromuscular re-education for posture and balance. Therapeutic activities to return to functional activities of daily living. Electronically signed by: Susy Armando, PT, DPT, ATC Please sign and return to therapist. Thank you for your referral.
--- NOTE | 2025-04-26 11:11 | MHC.PT.DC ---
[facility] [place] Office [place] Office [place] Office [address] [phone] F: [phone] F: [phone] F: [phone] F: [phone] Physical Therapy Discharge Report Diagnosis: L hip pain Date of Surgery: n/a Date of Evaluation: 03/16/25 Date of Discharge: 04/26/25 Treatments to Date: 2 Cancellations to Date: 3 No Shows to Date: 0 Discharge Status: Patient Elected to Stop Discharge Summary: Pt cancelled all remaining appointments due to copay. Electronically signed by: Susy Armando PT, DPT, ATC Please sign and return to therapist. Thank you for your referral.
== END 2025-04-26 11:12 | disposition home or self-care (01) ==
LOC: HO.PTCHIC 10:00
PROVIDERS: PCP Internal Medicine; Visit Provider Internal Medicine
DX: M25.552 Pain in left hip (principal)
CPT/HCPCS: 97110; 97161

== ENCOUNTER 2025-04-18 10:55 | Outpatient (AMB) | payer MEDICARE, SELFPAY ==
[2025-04-18 10:56] VITALS: BP 110/74; PULSE 64; RESP 20; O2SAT 96; BMI 34.9
--- NOTE | 2025-04-18 10:56 | A.OFFPC_ITS ---
Vital Signs 04/18/25 10:56 Height 5 ft 11 in Weight 250 lb BMI 34.9 BP 110/74 Blood Pressure Location Lt brachial Position Sitting Respiration 20 Pulse 64 Pulse Source Pulse Oximeter Pulse Oximetry (%) 96 Oxygen Delivery Method Room Air Intake Visit Reasons: 6 months follow up Intake Note: Pt is here today for 6 months follow up visit. Allergies No Known Allergies Allergy (Verified 04/18/25 11:00) Medication List - Last Reconciled 04/18/25 by Reena Ozuna MD acyclovir 5% 1 appl topical QID Anoro Ellipta 62.5-25 mcg/actuation (umeclidinium-vilanterol) 1 inh inhalation DAILY NS atorvastatin 40 mg PO DAILY benzonatate 100 mg PO TID chlorthalidone 25 mg PO DAILY citalopram 40 mg PO DAILY compr.stocking,knee,long,x-lrg As directed diclofenac sodium 75 mg PO BID loperamide (Imodium A-D) 2 mg PO Q6H PRN naproxen 500 mg PO Q12H Tobacco use date assessed: 04/18/25 Dental Screening Dental Screen Date: 02/10/25 HPI 6 months follow up HPI Details Patient presents for the follow-up on hyperlipidemia hypertension COPD stable on current medications. He has started physical therapy for L hip pain secondary to severe osteoarthritis and is feeling better [facility] Medical History (Updated 04/18/25 @ 11:37 by Reena Ozuna MD) Depression Hypertension Hyperlipidemia Screening for colon cancer Chronic bronchitis Left hip pain Surgical History History of right hip replacement Family History Father Hypertension Mother No problems noted. 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 Cognitive needs: No Hearing needs: No Vision needs: Yes Questionnaire Thrive Questionnaire Date Thrive assessed: 02/10/25 Review of Systems Const All systems reviewed & are unremarkable except as noted in HPI and below ENT Reports no additional complaints Card Reports no additional complaints Resp Reports no additional complaints GI Reports no additional complaints Reports no additional complaints Physical exam (Primary Care) Vital Signs: Last Vital Signs Pulse 64 04/18/25 10:56 Resp 20 04/18/25 10:56 BP 110/74 04/18/25 10:56 Pulse Ox 96 04/18/25 10:56 Oxygen Delivery Method Room Air 04/18/25 10:56 BMI result Body Mass Index 34.9 Tobacco/Smoking Status: Tobacco use Status Tobacco use date assessed 04/18/25 04/18/25 11:03 Patient Tobacco Use Status Never used Tobacco 04/18/25 10:57 e-Cigarette/Vaping Use Never Used 04/18/25 10:57 Thrive Assessment: Date of Thrive Assessment Date Thrive assessed 02/10/25 04/18/25 10:57 Const General: no acute distress HENMT Head: Yes normal to inspection Eyes General: appearance normal, both eyes and all related structures Resp Effort & Inspection: normal respiratory effort Auscultation: clear to auscultation bilaterally Cardio Rhythm: regular rhythm Heart sounds: S1 normal heart sound present and S2 normal heart sound present GI Inspection: Yes normal to inspection Palpation (GI): Soft to palpation Percussion: Yes normal to percussion Auscultation: normal bowel sounds Coding Level of Care Code Est Pt Level 4 (27194) Complex EM visit Add On G2211 Diagnoses Chronic bronchitis J42 Hyperlipidemia E78.5 Hypertension I10 Other depression F32.89 Depression Type: other depression Assessment & Plan Assessment & Plan (1) Chronic bronchitis: Comment: on Anoro Code(s): J42 - Unspecified chronic bronchitis Category: Medical Plan: Continue Anoro (2) Hyperlipidemia: Comment: Controlled on statin Code(s): E78.5 - Hyperlipidemia, unspecified Category: Medical Plan: Continue atorvastatin (3) Hypertension: Code(s): I10 - Essential (primary) hypertension Category: Medical Plan: Continue chlorthalidone (4) Depression: Comment: Stable on citalopram Code(s): F32.9 - Major depressive disorder, single episode, unspecified Category: Medical Qualifiers: Depression Type: other depression Qualified Code(s): F32.89 - Other specified depressive episodes Plan: Continue citalopram. Patient will have fasting blood work today. Follow-up in 6 months Orders: Referrals Dermatology Referral D23.9 - Other benign neoplasm of skin, unspecified Medications: Refilled atorvastatin 40 mg PO DAILY 90 tabs 3RF chlorthalidone 25 mg PO DAILY 90 tabs 3RF citalopram 40 mg PO DAILY 90 tabs 3RF
--- OUTSIDE RECORDS SUMMARY | 2025-04-18 12:12 | XMS_ITS ---
[facility] Organization [facility] Address [address] [place] [address] Care Team Providers Care Director Engineering Name Role Phone Reena Ozuna MD Primary Care Provider Julia Mendoza Unavailable [phone] Allergies No Known Allergies REASON FOR VISIT Painful nail(s) aggravated by shoes causing difficulty standing/walking Medications Medication SIG (Take, Route, Frequency, Duration) Notes Start Date End Date Status Diclofenac Sodium 75 MG 1 tablet with fo od Orally Twice a day for 30 days 12/13/2024 Active Anoro Ellipta Active Atorvastatin Calcium 40 MG 1 tablet Oral ly Once a day Active Chlorthalidone 25 MG 1 tablet in the mor riddhi with food Orally Active Citalopram Hydrobromide 20 MG 1 tablet Orally Once a day Active Social History Tobacco Use: Social History Observation Description Date Details (start date - stop date) Never Smoker NA - NA Tobacco use other than smoking: Question Answer Notes Are you an other tobacco user? No Tobacco Control (Standard) Question Answer Notes Tobacco use: Nonsmoker Vital Signs Height 1ug53ca in 03/24/2025 Weight 262 lbs 03/24/2025 BMI 36.54 kg/m2 03/24/2025 Blood pressure systolic 105 mm Hg 03/24/20 Blood pressure diastolic 65 mm Hg 025 Encounters Encounter Location Date Provider [facility] [address] [place] [address] 03/24/2025 Julia Angel Pain in right toe(s) M79.674 ; Onychomycosis B35.1 and Pain in left toe(s) M79.675 Assessments Encounter Date Diagnosis (ICD Code) Assessment Notes Treatment Notes Treatment Clinical Notes Section Notes 03/24/2025 Pain in right toe(s) (ICD-10 - M79.674) 03/24/2025 Onychomycosis (ICD-10 - B35.1) 03/24/2025 Pain in left toe(s) (ICD-10 - M79.675) Plan Of Treatment Next Appt Details Follow Up: 3 Months, Reason: Provider Name:Julia hager, 06/23/2025 02:00:00 PM, [address] [place] [address], [phone], Procedure Notes * Category Sub-Category Detail Notes Debride Nail 6-10 Nail debridement Due to the cl inical pathology outlined in the exam findings, performance of this nail treatment is medically necessary as its management by an unskilled/untrained nonprofessional would put this patients foot and overall health at risk. Therefore, debridement to affected nail(s), as described in exam ( TA, T1, T2, T3, T4, T5, T6, T7, T8, T9, ), was performed exclusively by the physician of record to reduce/remove overall nail length, girth, thickness, subungual debris, and necrotic tissue, by manual and/or electrical means through the use of a nail nipper and/or dremel-type sample tester grinder, to a more viable healthy nail plate or bed tissue 6-10 nails in total. Silver nitrate was used for any petechial bleeding as necessary. Definitive antifungal treatment options, both pharmaceutical and surgical, have been reviewed and discussed with the patient. The patient solely prefers the use of intermittent/as needed professional debridement services for their nail condition and understands the need for additional periodic treatments to maintain effectiveness in symptomatic relief - 89132 Progress Notes * Demian CHILDRESSDOB:[birth year] (69 yo M)Acc No.[id number]:03/24/2025 Progress Note Patient:Demian SIMEON Provider:?Julia Angel DPM :1955???Age:69 Y???Sex:Male Sundeep e:03/24/2025 Address:[address] [place] [address] [address], [facility] Pcp:Reena Ozuna MD Subjective: * Chief Complaints: * ???Painful nail(s) aggravate d by shoes causing difficulty standing/walking * HPI: ???Painful Nails:?Pt States Last PCP Visit:?Date:?03/16/2025 * ROS:?General/Constitutional:?Nausea?denies.?Vomiting?denies.?Hunger Thirst?denies.?Loss appetite?denies.?Chills?denies.?Fatigue?denies.?Fever?denies.?Night Sweats?denies.?Unexplained weight loss?denies.?Unexplained [...] an other tobacco user??No ?Tobacco Control (Standard)?Tobacco use:?Nonsmoker ???Drugs/Alcohol:?Drugs?Have you used drugs other than those for medical reasons in the past 12 months??Yes ?Marijuana??Yes ???Miscellaneous:?Caffeine: yes, frequency:, 1-2 cups per day. ?Children: no. ?Exercise: yes. ?Marital status: . 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 * Medications:?TakingAnoro Ell ipta Atorvastatin Calcium 40 MG Tablet 1 tablet Orally Once a day Chlorthalidone 25 MG Tablet 1 tablet in the morning with food Orally Citalopram Hydrobromide 20 MG Tablet 1 tablet Orally Once a day Diclofenac Sodium 75 MG Tablet Delayed Release 1 tablet with food Orally Twice a day Medication List reviewed and reconciled with the patientTaking Anoro Ellipta Taking Atorvastatin Calcium 40 MG Tablet 1 tablet Orally Once a day Taking Chlorthalidone 25 MG Tablet 1 tablet in the morning with food Orally Taking Citalopram Hydrobromide 20 MG Tablet 1 tablet Orally Once a day Taking Diclofenac Sodium 75 MG Tablet Delayed Release 1 tablet with food Orally Twice a day Medication List reviewed and reconciled with the patient * Allergies:?N.K.D.A.yes[Aller gies Verified] Objective: * Vitals:?Ht: 7xo96jw, Wt:262, BMI:36.54, Shoe size: 11, BP:105/65mm Hg, Ht-cm: 180.34 cm, Wt-k.84 kg. * Examination: ???Nails: ?NAILS are:?Elongated, overgrown, dystrophic, lytic, greater than 3mm thick, discolored and friable with crumbly malodorous subungual debris, with pain on palpation, TA, T1, T2, T3, T4, T5, T6, T7, T8, T9.? Assessment: * Assessment: 1.?Pain in right toe(s) - M7 9.674???2.?Onychomycosis - B35.1 (Primary)???3.?Pain in left toe(s) - M79.675??? Plan: * Treatment: * Procedures:?Debride Nail 6-10:?Nail debridement?Due to the clinical pathology outlined in the exam findings, performance of this nail treatment is medically necessary as its management by an unskilled/untrained nonprofessional would put this patients foot and overall health at risk. Therefore, debridement to affected nail(s), as described in exam ( TA, T1, T2, T3, T4, T5, T6, T7, T8, T9, ), was performed exclusively by the physician of record to reduce/remove overall nail length, girth, thickness, subungual debris, and necrotic tissue, by manual and/or electrical means through the use of a nail nipper and/or dremel-type sample tester grinder, to a more viable healthy nail plate or bed tissue 6- 10 nails in total. Silver nitrate was used for any petechial bleeding as necessary. Definitive antifungal treatment options, both pharmaceutical and surgical, have been reviewed and discussed with the patient. The patient solely prefers the use of intermittent/as needed professional debridement services for their nail condition and understands the need for additional periodic treatments to maintain effectiveness in symptomatic relief - 33439.? * Procedure Codes:?08171 DEBRI DE NAIL, 6 OR MORE * Follow Up:?3 Months * Images: * Sign off status: Completed true * Provider:?Julia Angel DPM Date:? Generated for Caprice yates/Felicity/Anitha on:?04/18/2025 12:11 PM EDT History and Physical Notes * HPI (History of Present Illness) Category Sub-Category Detail Notes Category Not es Painful Nails Pt States Last PCP Visit: Date:: 03/16/2025 Examination Category Sub-Category Detail Notes Category Not es Nails NAILS are: Elongated, overg rown, dystrophic, lytic, greater than 3mm thick, discolored and friable with crumbly malodorous subungual debris, with pain on palpation, TA, T1, T2, T3, T4, T5, T6, T7, T8, T9
--- OUTSIDE RECORDS SUMMARY | 2025-04-18 12:12 | XMS_ITS ---
Author Organization [facility] Address [address] [place] [address] Care Team Providers Care Document Analyst Name Role Phone Reena Ozuna MD Primary Care Provider Unavaila Julia Self Unavailable [phone] Anam Montano [phone] REASON FOR VISIT NS 01/03 APPT Encounters Encounter Location Date Provider Diagnosis [address] [address] 01/03/2025 Anam Montano Plan Of Treatment Next Appt Details Provider Name:Julia hager, 06/23/2025 02:00:00 PM, [address] [facility], [place], [address], Progress Notes * Demian CHILDRESSDOB:[birth year] (69 yo M)Acc No.[id number]:01/03/2025 Patient:?Demian CHILDRESS :1955???Age:69 Y???Sex:Male Address:[address] [place] [address], [address], [place] [address] * true * Date:? Generated for Printi ng/Fadorong/eTransmitting on:?04/18/2025 12:11 PM EDT
--- OUTSIDE RECORDS SUMMARY | 2025-04-18 12:12 | XMS_ITS | Patient Health Record ---
[facility]ron [facility] [place] Address [address] [facility] [place] [address] Care Team Providers Care Grinding Machine Operator Automatic Name Role Phone Sulma YANEZ, Reena Primary Care Provider Julia Mendoza Unavailable [phone] Dusty Anam Unavailable [phone] Allergies No Known Allergies Reason For Referral [...] (Standard) Question Answer Notes Tobacco use: Nonsmoker AUDIT-C (Standard) Question Answer Notes Did you have a drink containing alcohol in the p ast year? No Points 0 Interpretation Negative Problems Problem Type SNOMED Code ICD Code Onset Dates Problem Status W/U Status Risk Notes Problem Plantar fasciitis of right foot (5739945563570 9101) Plantar fasciitis of right foot (M72.2) Active confirmed Vital Signs Blood pressure diastolic 65 mm Hg 03/24/2025 Height 2ay21xt in 03/24/2025 Blood pressure systolic 105 mm Hg 03/24/2025 Weight 262 lbs 03/24/2025 BMI 36.54 kg/m2 03/24/2025 Encounters Encounter Location Date Provider [facility] [address] 12/13/2024 Anam Montano Pain in right foot M79.671 ; Calcaneal spur, right foot M77.31 and Plantar fasciitis of right foot M72.[address] [address] 03/24/2025 Julia Angel Pain in right toe(s) M79.674 ; Onychomycosis B35.1 and Pain in left toe(s) M79.675 [facility] [address] 05/31/2024 Julia Angel [address] [address] 12/08/2024 Julia Angel [address] [address] 12/27/2024 Anam Montano [address] [address] 01/03/2025 Anam Montano Assessments Encounter Date Diagnosis (ICD Code) Assessment Notes Treatment Notes Treatment Clinical Notes Section Notes 12/13/2024 Pain in right foot (ICD-10 - M79.671) 12/13/2024 Calcaneal spur, right foot (ICD-10 - M77.31) 03/24/2025 Pain in right toe(s) (ICD-10 - M79.674) 03/24/2025 Onychomycosis (ICD-10 - B35.1) 12/13/2024 Plantar fasciitis of right foot (ICD-10 - M72.2) Patient Educated with: HEEL CORD STRETCHES.pdf (HEEL CORD STRETCHES.pdf) Patient Educated with: RICE THERAPY.pdf (RICE THERAPY.pdf) 03/24/2025 Pain in left toe(s) (ICD-10 - M79.675) Plan Of Treatment Pending Test Test Name Order Date X ray : Ankle, left 3V 03/18/2024 X ray : Foot, left 3V 03/18/2024 X ray : Foot, right 3V 12/13/2024 Next Appt Details Provider Name:Julia hager, 06/23/2025 02:00:00 PM, [address] [place] [address], [phone], Insurance Providers Payer Name Payer Address Payer Phone Subscriber Number Group Number Insured Name Patient Relationship to Insured Coverage Start Date Coverage End Date AARP Medicare Complete [address] [address] [place] [address] [id number] Demian Marquez Self - patient is the insured Medical (General) History Medical History History ICD Code Anxiety Arthritis Back,Hip,and Knee pain Depression Gall bladder problems High blood pressure Sciatica Surgical History Surgery Date(Month/Year) right hip replacement 2004
--- OUTSIDE RECORDS SUMMARY | 2025-04-18 12:12 | XMS_ITS ---
Author [facility] [place] Address [address] [facility] [place] [address] Care Team Providers Care Jazz Musician Name Role Phone Reena Ozuna MD Primary Care Provider Julia Mendoza Unavailable [phone] DustyAnam Unavailable [phone] REASON FOR VISIT PCP: 10/2024, Heel pain [...] cigs/day) Encounters Encounter Location Date Provider Diagnosis [facility] [address] [address] 01/03/2025 Anam Dusty Pain in right foot [...] Follow Up: prn, Reason: Provider Name:Julia hager, 06/23/2025 02:00:00 PM, [address] [place], [address], Progress Notes * Demian CHILDRESSDOB:[birth year] (69 yo M)Acc No.[id number]:01/03/2025 Progress Notes Patient:?Demian CHILDRESS Provider:?Anam Montano D.P.M. :1955???Age:69 Y???Sex:Male Sundeep e:01/03/2025 Address:[address] [place], [place] [address] Pcp:Reena Ozuna MD Subjective: * Chief Complaints: [...] Montano D.P.M. Date:?02/2025 Generated for Caprice yates/Felicity/Marileeitting on:?04/18/2025 12:11 PM EDT History and Physical [...]
== END 2025-04-18 11:39 | disposition home or self-care (01) ==
LOC: HO.HMCC 10:56
PROVIDERS: PCP Internal Medicine; Visit Provider Internal Medicine
DX: J42 Unspecified chronic bronchitis (principal); E78.5 Hyperlipidemia, unspecified; I10 Essential (primary) hypertension; F32.89 Other specified depressive episodes; Z23 Encounter for immunization

== ENCOUNTER → 2025-04-18 10:55 | Outpatient (BNVA) | payer MEDICARE, SELFPAY | PROVIDERS: PCP Internal Medicine; Visit Provider Internal Medicine | DX: Z23 Encounter for immunization (principal); J42 Unspecified chronic bronchitis; E78.5 Hyperlipidemia, unspecified; I10 Essential (primary) hypertension; F32.89 Other specified depressive episodes | CPT/HCPCS: 90471; 90677; 99212 ==

== ENCOUNTER 2025-06-12 13:29 | Outpatient (REF) | payer MEDICARE, SELFPAY ==
--- OUTSIDE RECORDS SUMMARY | 2025-06-12 14:37 | XMS_ITS | Patient Health Record ---
Author [facility] Dayron [facility] Address [address] [facility] [place] [address] Care Team Providers Care Electrician Crane Maintenance Name Role Phone Sulma YANEZ, Reena Primary Care Provider Julia Mendoza Unavailable [phone] Anam Montano Unavailable [phone] Allergies No Known Allergies Reason For Referral No Information Medications Medication SIG (Take, Route, Frequency, Duration) Notes Start Date End Date Status Diclofenac Sodium 75 MG 1 tablet with fo od Orally Twice a day; Duration: 30 days 12/13/2024 Active Anoro Ellipta Active [...] Notes Problem Plantar fasciitis of right foot (8279820578533 9101) Plantar fasciitis of right foot (M72.2) Active confirmed Vital Signs Blood pressure diastolic 65 mm Hg 03/24/2025 Height 1cg40yc in 03/24/2025 Blood pressure systolic 105 mm Hg 03/24/2025 Weight 262 lbs 03/24/2025 BMI 36.54 kg/m2 03/24/2025 Encounters Encounter Location Date [facility] [address] [address] 12/13/2024 Anam Montano Pain in right foot M79.671 ; Calcaneal spur, right foot M77.31 and Plantar fasciitis of right foot M72.[address] [address] 03/24/2025 Julia Angel Pain in right toe(s) M79.674 ; Onychomycosis B35.1 and Pain in left toe(s) M79.[address] [address] 12/08/2024 Julia Khana [address] [address] 12/27/2024 Anam Montano [address] [address] 01/03/2025 Anam Montano Assessments Encounter Date Diagnosis [...] Details Provider Name:Julia hager, 06/23/2025 02:00:00 PM, [address] [place] [address], [address], Insurance Providers Payer Name Payer Address Payer Phone Subscriber Number Group Number Insured Name Patient Relationship to Insured Coverage Start Date Coverage End Date AARP Medicare Complete [address] [address] [place] [address] [id number] Demian Marquez Self - patient is the insured Medical (General) History Medical History History ICD Code Anxiety Arthritis Back,Hip,and Knee pain Depression Gall bladder problems High blood pressure Sciatica Surgical History Surgery Date(Month/Year) right hip replacement 2004
[2025-06-12 16:42] LABS: MANUAL DIFF FLAG NO
[2025-06-12 17:01] LABS: Hematocrit 41.2 % (42.0-52.0); Hemoglobin 14.1 g/dl (14.0-18.0); Imm Gran Abs Auto 0.01 X10*3/uL (0.00-0.03); Imm Gran Pct Auto 0.2 % (0.0-0.4); Lymphocytes Absolute Auto 1.1 X10*3/uL (1.2-4.9); Mean Corpuscular HGB Conc 34.2 g/dl (31.0-36.0); Mean Corpuscular Hemoglobin 31.1 pg (27.0-33.0); Mean Corpuscular Volume 90.9 fL (80.0-98.0); NRBC Abs Auto 0.000 X10*3/uL (0.0-0.012); NRBC Pct Auto 0.0 /100WBC (0.0-0.2); Platelet Count 159 X10*3/uL (160-400); Red Blood Count 4.53 X10*6/uL (4.60-5.80); White Blood Count 6.1 X10*3/uL (4.8-10.8)
[2025-06-12 17:13] LABS: Hemoglobin A1C 133.6387 umol/L; Total Hemoglobin (HGBA1C) 3726.9841 umol/L
[2025-06-12 17:43] LABS: Alanine Aminotransferase 17 U/L (0-40); Albumin Level 4.3 g/dL (3.5-5.0); Alkaline Phosphatase 42 U/L (39-117); Anion Gap 12 (12-20); Aspartate Amino Transferase 25 U/L (5-37); Blood Urea Nitrogen 16 mg/dL (9-16); Calcium 9.3 mg/dL (8.4-10.2); Carbon Dioxide 29 mmol/L (22-29); Chloride 106 mmol/L (96-108); Cholesterol 170 mg/dL (<200); Estimated Glomerular Filt Rate > 60; HDL Cholesterol 41 mg/dL (>40); Potassium 3.7 mmol/L (3.3-5.1); Sodium 143 mmol/L (135-145); Total Protein 6.9 g/dL (6.5-8.0); Triglycerides 162 mg/dL (<150)
[2025-06-12 17:44] LABS: Folate 7.0 ng/mL (> or = 4.0); Vitamin B12 435 pg/mL (200-900)
== END 2025-06-12 13:30 | disposition home or self-care (01) ==
LOC: HO.HMGCLDS 13:29
PROVIDERS: PCP Internal Medicine; Visit Provider Internal Medicine
DX: E78.5 Hyperlipidemia, unspecified (principal); I10 Essential (primary) hypertension
CPT/HCPCS: 36415; 80053; 80061; 82607; 82746; 83036; 84443; 85025

== ENCOUNTER 2025-08-22 07:18 | Emergency (ER) | payer MEDICARE, SELFPAY ==
--- OUTSIDE RECORDS SUMMARY | 2024-12-13 11:00 | XMS_ITS ---
Author Organization [facility] Address [address] [place] [address] Care Team Providers Care Manager Change Name Role Phone Reena Ozuna MD Primary Care Provider Julia Mendoza Unavailable [phone] MontanoAnam Unavailable [phone] Allergies No Known Allergies REASON FOR VISIT PCP: 10/2024, Heel pain Medications Medication SIG (Take, Route, Frequency, Duration) Notes Start Date End Date Status Atorvastatin Calcium 40 MG 1 tablet Oral ly Once a day Active Diclofenac Sodium 75 MG 1 tablet with fo od Orally Twice a day; Duration: 30 days 12/13/2024 Active Chlorthalidone 25 MG 1 tablet in the mor riddhi with food Orally Active Citalopram Hydrobromide 20 MG 1 tablet Orally Once a day Active Social History Tobacco Use: Social History Observation Description Date Details (start date - stop date) Current Smoker NA - NA Tobacco use other than smoking: Question Answer Notes Are you an other tobacco user? No Tobacco Control (Standard) Question Answer Notes Tobacco use: Current smoker How often do you smoke cigarettes? Every day How many cigarettes a day do you smoke? 5 or les s How soon after you wake up d o you smoke your first cigarette? 6-30 minutes Are you interested in quitting? Not ready to lee t Additional Findings: Tobacco user Light cigarett e smoker (1-9 cigs/day) AUDIT-C (Standard) Question Answer Notes Did you have a drink containing alcohol in the p ast year? No Points 0 Interpretation Negative Problems Problem Type SNOMED Code ICD Code Onset Dates Problem Status W/U Status Risk Notes Problem Plantar fasciitis of right foot (0925782556104 9101) Plantar fasciitis of right foot (M72.2) Active confirmed Vital Signs Blood pressure systolic 104 mm Hg 12/13/19 25 Blood pressure diastolic 65 mm Hg 025 Height 5ft 11in in 12/13/2024 Weight 245 lbs 12/13/2024 BMI 34.17 kg/m2 12/13/2024 Encounters Encounter Location Date Provider Diagnosis [facility] [address] 12/13/2024 Anam Montano Pain in right foot M79.671 ; Calcaneal spur, right foot M77.31 and Plantar fasciitis of right foot M72.2 Assessments Encounter Date Diagnosis (ICD Code) Assessment Notes Treatment Notes Treatment Clinical Notes Section Notes 12/13/2024 Pain in right foot (ICD-10 - M79.671) 12/13/2024 Calcaneal spur, right foot (ICD-10 - M77.31) 12/13/2024 Plantar fasciitis of right foot (ICD-10 - M72.2) Patient Educated with: HEEL CORD STRETCHES.pdf (HEEL CORD STRETCHES.pdf) Patient Educated with: RICE THERAPY.pdf (RICE THERAPY.pdf) Plan Of Treatment Medication Medication Name Sig Start Date Stop Date Notes Diclofenac Sodium 75 MG 1 tablet with fo od Orally Twice a day; Duration: 30 days 12/13/2024 Treatment Notes Assessment Notes Plantar fasciitis of right foot Patient Educated with: HEEL CORD STRETCHES.pdf (HEEL CORD STRETCHES.pdf) Patient Educated with: RICE THERAPY.pdf (RICE THERAPY.pdf) Pending Test Test Name Order Date X ray : Foot, right 3V 12/13/2024 Next Appt Details Follow Up: 2 Weeks, Reason: Provider Name:Julia hager, 09/19/2025 03:15:00 PM, [address] [place], [address], Progress Notes * Demian CHILDRESSDOB:[birth year] (70 yo M)Acc No.[id number]:12/13/2024 Progress Note Patient: Demian TROY Provider: Pelon Montano D.P.M. :1955 A ge:69 Y S ex:Male Date:12/13/2024 Address:[address] [place] [address] [address], [id number] Pcp:Reena Ozuna MD Subjective: * Chief Complaints: * 1 . PCP: 10/2024. 2. Heel pain. * HPI: H eel pain: Nature: a lia, burning, pulling. Location: P roximal plantar aspect of Heel, RIGHT. Duration: s everal months. Onset/Cause: w alking. Course: w orse. Aggravated: s tanding, walking, walking first thing in the morning/after rest. Treatments: r est/alter normal daily activity. Severity/Quality: S tates 8 out of 10. Misc: P atient states previous conservative therapy has not provided acceptable relief. Despite previous treatments/efforts, patient continues to relate substantial pain and significant functional disability during activity. * ROS: G eneral/Constitutional: Nausea d enies. V omiting d enies. H fortino Thirst d enies. L oss appetite d enies. C hills d enies. F atigue d enies.?Fever d enies. N ight Sweats d enies. U nexplained weight loss d enies. U nexplained weight gain d enies. H EENTM: Dentures d enies. D izziness d enies. G lasses/contacts a dmits. R etinopathy d enies. B lurred/double vision d enies. T MJ?denies. D ischarge/drainage d enies. I mplants d enies. S ore throat d enies. D ental implants d enies. H moncho of hearing d enies. D ifficulty chewing/swallowing/speaking d enies. N ose bleeds d enies. S ore mouth d enies. ? R espiratory: On Oxygen d enies. P neumonia/pleurisy d enies.?Bronchitis d enies. E mphysema d enies. C oughing d enies. C ough blood?denies. S hortness of breath d enies. W heezing d enies. C ardiovascular: Pacemaker d enies. M ORCHESTRA TEACHER d enies. W PW d enies. C HF d enies. H eart attack d enies. S eptal defect d enies. R apid beat d enies. C hest pain d enies. A trial Fib. d enies. M urmur/Palpitations d enies. G astrointestinal: Hemorrhoids d enies. S tomach/Abdominal pain d enies. D ark blood stool d enies. I rritable bowel d enies. C onstipation d enies. D iarrhea d enies. H ematology: Swelling d enies. C lots d enies. V aricose Veins d enies. B ruising d enies. B leeding problem d enies. G enitourinary: Blood urine d enies. F requent/Painfu/urination/bladder control d enies. K idney stones d enies. I nfection (UTI) d enies. N ephropathy d enies. s ex trans dis (STD) d enies. P rostate d enies. M usculoskeletal: Hammertoes d enies. B unions d enies. B ack Pain d enies. M uscle Cramps/ Resting d enies. M uscle cramps / walking d enies.?Generalized aches and pains d enies. W eakness d enies. I nteg.: Dhillon d enies. S cars d enies. C orns/calluses?denies. I ngrown nails d enies. P ainful nails a dmits. O pen Sores d enies. R ashes d enies. N eurologic: Difficulty sleeping d enies. B rain disorder d enies. N umbness d enies. B alance trouble d enies. C onfusion d enies. F ainting/blackouts d enies. T ingling d enies. T remors d enies. * Medical History: A nxiety, Arthritis, Back,Hip,and Knee pain, Depression, Gall bladder problems, High blood pressure, Sciatica. * Surgical History: r ight hip replacement 2004. * Hospitalization/Major Diagno stic Procedure: D enies Past Hospitalization. * Family History: M other: , diagnosed with Unspecified heart disease. F ather: , diagnosed with Other malignant neoplasm of unspecified site, Unspecified essential hypertension. S iblings: diagnosed with Diabetic - NIDDM. * Social History: T obacco Use: T obacco use other than smoking A re you an other tobacco user? N o Tobacco Control (Standard) T obacco use: C urrent smoker H ow often do you smoke cigarettes? E very day H ow many cigarettes a day do you smoke? 5 or less H ow soon after you wake up do you smoke your first cigarette? 6 -30 minutes A re you interested in quitting? N ot ready to quit A dditional Findings: Tobacco user L ight cigarette smoker (1-9 cigs/day) D rugs/Alcohol: D rugs H ave you used drugs other than those for medical reasons in the past 12 months? N o M iscellaneous: C affeine: yes, frequency:, 1-2 cups per day. Children: no. Exercise: yes. Marital status: . 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 D rug/Alcohol: A ASMITA-C (Standard) D id you have a drink containing alcohol in the past year? N o P oints 0 I nterpretation N egative * Medications: T aking Atorvastatin Calcium 40 MG Tablet 1 tablet Orally Once a day , Taking Chlorthalidone 25 MG Tablet 1 tablet in the morning with food Orally , Taking Citalopram Hydrobromide 20 MG Tablet 1 tablet Orally Once a day , Medication List reviewed and reconciled with the patient * Allergies: N .K.D.A. Objective: * Vitals: H t: 5ft 11in, Wt:245, BMI:34.17, Shoe size: 11, BP:104/65mm Hg, Ht-cm: 180.34 cm, Wt-k.13 kg. * Examination: G eneral Examination: GENERAL APPEARANCE: Jose gilmores a pleasant, alert, well-nourished, well-developed, well hydrated individual, who demonstrates proper attention to hygiene/body habitus, and is in no acute distress. ORIENTED: p erson, place, and time , person, place, and time. N eurological: SENSORY: N eurological exam reveals intact sensorium, pain sensation normal, vibration sensation intact, pinprick sensation is normal in the lower extremities, Pt denies, anesthesia, burning, paresthesia, tingling, B/L . TINEL'S COMPRESSION: N egative tarsal tunnel, mirian pedis, and medial calcaneal nerves. DEEP TENDON REFLEXES: A chilles, 2/4, B/L. V ascular: DP PULSES (B): 3 /4, B/L . PT PULSES (B): 3 /4, B/L . CAPILLARY FILL TIME: i mmediate, all digits, B/L . ? TROPHIC CONDITION-TEXTURE/ELASTICITY/TURGOR/HAIR GROWTH (B):?normal, B/L . TEMPERTURE GRADIENT (C): w arm to cool, proximal to distal, B/L . PIGMENTATION: n ormal, B/L . EDEMA (C): a bsent, B/L . D ermatologic: SKIN FINDINGS: S kin exam reveals normal texture, elasticity, and turgor. There are no masses. The interspaces are clear . O rthopedic: MUSCLE STRENGTH: 5 /5 all groups in a symmetrical fashion , B/L. GAIT ABNORMALITY: Pronated abducted angle and base of gate L>R , antalgic. FOOT MORPHOLOGY: LEFT Pes Planus structure Semi-flexible Decreased Ankle joint dorsiflexion ROM, knee extended , Pes Planus structure, Decreased Ankle joint dorsiflexion ROM, knee extended. FOOTWEAR EVALUATION: s hoe gear properties exacerbate patients foot/toe deformity. H eel Pain: INSPECTION: Pain on Palpation to Plantar Fascia med. and central bands, intrinsic musc., infra-calcaneal bursa, and med calc tubercle , RIGHT foot, No pain: posterior/superior heel, achilles bursa/tendon, sinus tarsi, peroneals, or with lateral heel compression; no limited STJ ROM, calor, or ecchymosis. X -Rays - IMAGING REPORT: Clinical Indication(s): Evaluate for Fracture, Evaluate Biomechanical Deformity. Views: 3 views of Foot, LAT, LO, MO, RIGHT Taken by trained P odiatric Digital Designer [employer]. Findings: n ormal bone and soft tissue density consistent for patients age and sex, navicular/cuneiform plantar subluxation with anterior cyma line, positive infra and posterior calcaneal exostosis Right foot. Fracture: N egative fractures identified. ? Assessment: * Assessment: 1. P ain in right foot - M79.671 2 . C alcaneal spur, right foot - M77.31 (Primary) 3 . P lantar fasciitis of right foot - M72.2 S pecify :Acute problem, Complicated w/ Multiple Tx Options(4),Dx New problem, Prognosis Uncertain (4) Plan: * Treatment: 2. P lantar fasciitis of right foot Start Diclofenac Sodium Tablet Delayed Release, 75 MG, 1 tablet with food, Orally, Twice a day, 30 days, 60 Tablet, Refills 0. Notes: Patient Educated with: HEEL CORD STRETCHES.pdf (HEEL CORD STRETCHES.pdf) Patient Educated with: RICE THERAPY.pdf (RICE THERAPY.pdf) * Procedure Codes: 7 3630 X-RAY EXAM OF RIGHT FOOT 3V, Modifiers: 26 , RT * Preventive Medicine: Counseling: D iscussion: - 13: Office or other outpatient visit for the evaluation and management of an established patient, which required a medically appropriate history and/or examination and LOW level of DECISION MAKING for: 1 STABLE ACUTE UNCOMPLICATED PROBLEM, 2 OR MORE MINOR PROBLEMS, OR 1 STABLE CHRONIC PROBLEM, THAT POSE(S) A LOW RISK FOR MORBIDITY/MORTALITY. The visit on the day of the [...] have encouraged the patient to call the office. H eel pain: F ASCIITIS: I explained to the patient the possible etiologies of Plantar Fasciitis including foot type/shoegear/activity level/exercise routine and the risks/benefits of all the different treatment options for heel pain including: No treatment at all, Rest, Ice, NSAIDs(only if well tolerated after meals), New/supportive Shoegear, Strappings and Tapings, Stretching exercises, Deep Tissue Massage, Heel cups/cushions, Arch support/shoe inserts, Custom orthoses, Topical analgesics including Aspercream/Voltaren gel, Night splint AFO for am stiffness, Cortisone injection therapy, Cast boot with crutches/cane/or walker for assisted ambulation, Physical Therapy, EPAT/ESWT, Interfil injection therapy, as well as surgical [place]/Endoscopic Fasciitomy surgical procedures if needed. Recommendations were made to limit barefoot walking, eliminate wearing nonsupportive shoegear (i.e. flip- flops or sandals, or a shoe with an easily bendable, foldable, or twistable sole) and wear shoegear with a good solid sole, a supportive arch, and plenty of room for an insert/orthotic if necessary. If wearing sandals was required by the patient, we recommended orthopedic sandals such as Orthoheel or Birkenstock even while in the home. If the patient wore heels in the past, we recommended they continue, but eliminate the use of flats. The advantages and disadvantages of each option were discussed and the patients questions re: types of shoegear, custom vs prefabricated inserts, activity level, PO vs Topical medications (and their respective potential complications/drug interactions/side effects), and consistency in home treatment regimens for optimal success were answered to their satisfaction. Literature detailing plantar fasciitis and the various treatment options were dispensed and reviewed. S tretching Exercises: S tretching and deep tissue massage exercises for the patients injury/diagnosis were discussed and demonstrated, handouts were dispensed. Screening/Special Tests: F all Risk Screening: N o falls in the past year F ALLS: Screening for Future Fall Risk Have you had any falls with injury in the past year? N o * Follow Up: 2 Weeks * Images: * The named appointment provid er may or may not be the originator of this progress note, and it is not deemed complete until electronically signed by the appointment provider. Sign off status: Pending * Provider: Meir EspinozaPCeilM. Date: 0 12/13/2024 Generated for Caprice yates/Felicity/Anitha on: 0 08/22/2025 07:41 AM EDT History and Physical Notes * HPI (History of Present Illness) Category Sub-Category Detail Notes Category Not es Heel pain Duration: several months Nature: aching, burning, pul ling Severity/Quality: States 8 out of 10 Location: Proximal plantar asp ect of Heel, RIGHT Onset/Cause: walking Aggravated: standing, walking, w alking first thing in the morning/after rest Course: worse Treatments: rest/alter normal da isaac activity Misc: Patient states previ ous conservative therapy has not provided acceptable relief. Despite previous treatments/efforts, patient continues to relate substantial pain and significant functional disability during activity Examination Category Sub-Category Detail Notes Category Not es Neurological SENSORY: Neurological exa m reveals intact sensorium, pain sensation normal, vibration sensation intact, pinprick sensation is normal in the lower extremities, Pt denies, anesthesia, burning, paresthesia, tingling, B/L TINEL'S COMPRESSION: Negative tarsal cj ayanna, mirian pedis, and medial calcaneal nerves DEEP TENDON REFLEXES: Achilles, 2/4, B/L Dermatologic SKIN FINDINGS: Skin exam reveal s normal texture, elasticity, and turgor. There are no masses. The interspaces are clear Orthopedic GAIT ABNORMALITY: Pronated abduc alonso angle and base of gate L>R , antalgic FOOT MORPHOLOGY: LEFT Pes Planus stru cture Semi-flexible Decreased Ankle joint dorsiflexion ROM, knee extended , Pes Planus structure, Decreased Ankle joint dorsiflexion ROM, knee extended FOOTWEAR EVALUATION: shoe gear propertie s exacerbate patients foot/toe deformity MUSCLE STRENGTH: 5/5 all groups in a symmetrical fashion , B/L General Examination GENERAL APPEARANCE: Reveals a pleasant, alert, well- nourished, well-developed, well hydrated individual, who demonstrates proper attention to hygiene/body habitus, and is in no acute distress ORIENTED: person, place, and t sophy , person, place, and time Vascular DP PULSES (B): 3/4, B/L PT PULSES (B): 3/4, B/L CAPILLARY FILL TIME: immediate, all digi ts, B/L TEMPERTURE GRADIENT (C): warm to cool, p roximal to distal, B/L TROPHIC CONDITION-TEXTURE/ELASTICITY/TURGOR/HAIR GROWTH (B): normal, B/L EDEMA (C): absent, B/L ELEV. PALOR: CLAUDICATION (C): PIGMENTATION: normal, B/L X-Rays - IMAGING REPORT Findings: normal b one and soft tissue density consistent for patients age and sex, navicular/cuneiform plantar subluxation with anterior cyma line, positive infra and posterior calcaneal exostosis Right foot Fracture: Negative fractures i dentified Views: 3 views of Foot, LAT , LO, MO, RIGHT Taken by trained Podiatric Digital Designer [facility] Clinical Indication(s): Evaluate for Fra cture, Evaluate Biomechanical Deformity Heel Pain INSPECTION: Pain on Palpatio n to Plantar Fascia med. and central bands, intrinsic musc., infra-calcaneal bursa, and med calc tubercle , RIGHT foot, No pain: posterior/superior heel, achilles bursa/tendon, sinus tarsi, peroneals, or with lateral heel compression; no limited STJ ROM, calor, or ecchymosis
--- OUTSIDE RECORDS SUMMARY | 2024-12-27 10:45 | XMS_ITS ---
Author Organization [facility] Address [address] [facility] [place] [address] Care Team Providers Care Tankman Name Role Phone Reena Ozuna MD Primary Care Provider Julia Mendoza Unavailable [phone] Anam Montano [phone] REASON FOR VISIT PCP: 10/2024, Heel pain Medications Medication SIG (Take, Route, Frequency, Duration) Notes Start Date End Date Status Atorvastatin Calcium 40 MG 1 tablet Oral ly Once a day Active Chlorthalidone 25 MG 1 tablet in the mor riddhi with food Orally Active Citalopram Hydrobromide 20 MG 1 tablet Orally Once a day Active Diclofenac Sodium 75 MG 1 tablet with fo od Orally Twice a day; Duration: 30 days 12/13/2024 Active Encounters Encounter Location Date Provider Diagnosis [address] [address] 12/27/2024 Anam Montano Pain in right foot M79.671 ; Calcaneal spur, right foot M77.31 and Plantar fasciitis of right foot M72.2 Assessments Encounter Date Diagnosis (ICD Code) Assessment Notes Treatment Notes Treatment Clinical Notes Section Notes 12/27/2024 Pain in right foot (ICD-10 - M79.671) 12/27/2024 Calcaneal spur, right foot (ICD-10 - M77.31) 12/27/2024 Plantar fasciitis of right foot (ICD-10 - M72.2) Plan Of Treatment Pending Test Test Name Order Date X ray : Foot, right 3V 12/27/2024 Next Appt Details Follow Up: 2 Weeks, Reason: Provider Name:Julia hager, 09/19/2025 03:15:00 PM, [address] [facility], [place], [address], Progress Notes * Renetta CHILDRESSB:[birth year] (70 yo M)Acc No.[id number]:12/27/2024 Progress Notes Patient: Demian TROY Provider: Pelon Montano D.P.M. :1955 A ge:69 Y S ex:Male Date:12/27/2024 Address:[address] [place] [address], [address], [facility] Pcp:Reena Ozuna MD Subjective: * Chief Complaints: * 1 . PCP: 10/2024. 2. Heel pain. * HPI: H eel pain: Nature: a lia, burning, pulling. Location: P roximal plantar aspect of Heel, RIGHT. Duration: s everal months. Onset/Cause: w alking. Course: i mproved, at approximately 75 %. Aggravated: s tanding, walking, walking first thing in the morning/after rest. Treatments: r est/alter normal daily activity. Severity/Quality: S tates 3 out of 10. Misc: P atient states [...] enies. C ardiovascular: Pacemaker d enies. M RESOURCE CONSERVATION SPECIALIST d enies. W PW d enies. C [...] T remors d enies. * Medical History: * Medications: T aking Atorvastatin Calcium 40 MG Tablet 1 tablet Orally Once a day , Taking Chlorthalidone 25 MG Tablet 1 tablet in the morning with food Orally , Taking Citalopram Hydrobromide 20 MG Tablet 1 tablet Orally Once a day , Taking Diclofenac Sodium 75 MG Tablet Delayed Release 1 tablet with food Orally Twice a day , Medication List reviewed and reconciled with the patient Objective: * Vitals: * Examination: G eneral Examination: GENERAL APPEARANCE: Jose han a pleasant, alert, well-nourished, well-developed, well hydrated [...] no limited STJ ROM, calor, or ecchymosis. Assessment: * Assessment: 1. P ain in right foot - M79.671 2 . C alcaneal spur, right foot - M77.31 (Primary) 3 . P lantar fasciitis of right foot - M72.2 S pecify :Acute problem, Complicated w/ Multiple Tx Options(4),Dx New problem, Prognosis Uncertain (4) Plan: * Treatment: * Preventive Medicine: Counseling: D iscussion: - [...] encouraged the patient to call the office. S tretching Exercises: S tretching and deep [...] provider. Sign off status: Pending * Provider: Pelon Montano D.P.M. Date: 0 12/27/2024 Generated for Caprice yates/Felicity/eTrangregoryitting on: 0 08/22/2025 07:41 AM EDT History and Physical Notes * HPI (History of Present Illness) Category Sub-Category Detail Notes Category Not es Heel pain Duration: several months Nature: aching, burning, pul ling Severity/Quality: States 3 out of 10 Location: Proximal plantar asp ect of Heel, RIGHT Onset/Cause: walking Aggravated: standing, walking, w alking first thing in the morning/after rest Course: improved, at approxi mately 75 % Treatments: rest/alter normal da isaac activity Misc: [...] ELEV. PALOR: CLAUDICATION (C): PIGMENTATION: normal, B/L Heel Pain INSPECTION: Pain on Palpatio n to Plantar Fascia med. and central bands, intrinsic musc., infra-calcaneal bursa, and med calc tubercle , RIGHT foot, No pain: posterior/superior heel, achilles bursa/tendon, sinus tarsi, peroneals, or with lateral heel compression; no limited STJ ROM, calor, or ecchymosis
--- OUTSIDE RECORDS SUMMARY | 2025-01-03 10:30 | XMS_ITS ---
Author Organization [facility] Dayron larissa Roberta Address [address] [facility] [place] [address] Care Team Providers Care Senior Java Web Application Developer Name Role Phone Reena Ozuna MD Primary Care Provider Julia Mendoza Unavailable [phone] DustyAnam Unavailable [phone] REASON FOR VISIT PCP: 10/2024, Heel pain Medications Medication SIG (Take, Route, Frequency, Duration) Notes Start Date End Date Status Diclofenac Sodium 75 MG 1 tablet with fo od Orally Twice a day; Duration: 30 days 12/13/2024 Active Citalopram Hydrobromide 20 MG 1 tablet Orally Once a day Active Chlorthalidone 25 MG 1 tablet in the mor riddhi with food Orally Active Atorvastatin Calcium 40 MG 1 tablet Oral ly Once a day Active Social History Tobacco [...] user Light cigarett e smoker (1-9 cigs/day) Encounters Encounter Location Date Provider Diagnosis [facility] [address] [place] [address] 01/03/2025 Anam Dusty Pain in right foot M79.671 ; Calcaneal spur, right foot M77.31 and Plantar fasciitis of right foot M72.2 Assessments Encounter Date Diagnosis (ICD Code) Assessment Notes Treatment Notes Treatment Clinical Notes Section Notes 01/03/2025 Pain in right foot (ICD-10 - M79.671) 01/03/2025 Calcaneal spur, right foot (ICD-10 - M77.31) 01/03/2025 Plantar fasciitis of right foot (ICD-10 - M72.2) Plan Of Treatment Next Appt Details Follow Up: prn, Reason: Provider Name:Julia hager, 09/19/2025 03:15:00 PM, [address] [place], [address], Progress Notes * Demian CHILDRESSDOB:[birth year] (70 yo M)Acc No.[id number]:01/03/2025 Progress Notes Patient: Demian TROY Provider: Pelon Montano D.P.M. :1955 A ge:69 Y S ex:Male Date:01/03/2025 Address:[address] [place], [place] [id number] Pcp:Reena Ozuna MD Subjective: * Chief Complaints: * 1 . PCP: 10/2024. 2. Heel pain. * HPI: H eel pain: Nature: a lia, burning, pulling. Location: P roximal plantar aspect of Heel, RIGHT. Duration: s everal months. Onset/Cause: w alking. Course: i mproved, at approximately 30 %. Aggravated: s tanding, walking, walking first thing in the morning/after rest, NSAID's. Treatments: r est/alter normal daily activity. Severity/Quality: S tates 6 out of 10. Misc: P atient states [...] enies. C ardiovascular: Pacemaker d enies. M TOWEL STRETCHER d enies. W PW d enies. C [...] bladder problems, High blood pressure, Sciatica. * Family History: M other: , diagnosed [...] user L ight cigarette smoker (1-9 cigs/day) * Medications: T aking Atorvastatin Calcium 40 [...] * Examination: G eneral Examination: GENERAL APPEARANCE: R eveals a pleasant, alert, well-nourished, well-developed, well hydrated [...] foot - M72.2 S pecify :Acute problem, Stable Response to treatment - Improvement Plan: * Treatment: * Preventive Medicine: Counseling: [...] past year? N o * Follow Up: p rn * Images: * The named appointment provid er may or may not be the originator of this progress note, and it is not deemed complete until electronically signed by the appointment provider. Sign off status: Pending * Provider: Meir EspinozaPKari Date: 01/03/2025 Generated for Caprice yates/Felicity/Marileeitting on: 0 08/22/2025 07:41 AM EDT History and Physical Notes * HPI (History of Present Illness) Category Sub-Category Detail Notes Category Not es Heel pain Duration: several months Nature: aching, burning, pul ling Severity/Quality: States 6 out of 10 Location: Proximal plantar asp ect of Heel, RIGHT Onset/Cause: walking Aggravated: standing, walking, w alking first thing in the morning/after rest, NSAID's Course: improved, at approxi mately 30 % Treatments: rest/alter normal da isaac activity [...]
--- OUTSIDE RECORDS SUMMARY | 2025-06-23 10:00 | XMS_ITS ---
Author Organization [facility] Address [address] [place] [address] Care Team Providers Care Cattle Trader Name Role Phone Reena Ozuna MD Primary Care Provider Julia Mendoza Unavailable [phone] Medications Medication SIG (Take, Route, Frequency, Duration) Notes Start Date End Date Status Chlorthalidone 25 MG 1 tablet in the mor riddhi with food Orally Active Atorvastatin Calcium 40 MG 1 tablet Oral ly Once a day Active Anoro Ellipta Active Diclofenac Sodium 75 MG 1 tablet with fo od Orally Twice a day; Duration: 30 days 12/13/2024 Active Citalopram Hydrobromide 20 MG 1 tablet Orally Once a day Active Encounters Encounter Location Date Provider Diagnosis [address] [address] 06/23/2025 Julia Angel Plan Of Treatment Next Appt Details Provider Name:Julia hager, 09/19/2025 03:15:00 PM, [address] [place] [address], [address], Progress Notes * Demian CHILDRESSDOB:[birth year] (70 yo M)Acc No.[id number]:06/23/2025 Progress Note Patient: Demian TROY Provider: Digna Angel DPM :1955 A ge:70 Y S ex:Male Date:06/23/2025 Address:[address] [place] [address], [address] Pcp:Reena Ozuna MD Subjective: * Chief Complaints: * * Medical History: A nxiety, Arthritis, Back,Hip,and Knee pain, Depression, Gall bladder problems, High blood pressure, Sciatica. * Medications: T arley Anoro Ellipta , Taking Atorvastatin Calcium 40 MG Tablet 1 tablet Orally Once a day , Taking Chlorthalidone 25 MG Tablet 1 tablet in the morning with food Orally , Taking Citalopram Hydrobromide 20 MG Tablet 1 tablet Orally Once a day , Taking Diclofenac Sodium 75 MG Tablet Delayed Release 1 tablet with food Orally Twice a day Objective: * Vitals: Assessment: Plan: * Treatment: * Images: * The named appointment provid er may or may not be the originator of this progress note, and it is not deemed complete until electronically signed by the appointment provider. Sign off status: Pending * Provider: Digna Angel DPM Date: 06/23/2025 Generated for Caprice yates/Felicity/Anitha on: 08/22/2025 07:40 AM EDT
--- NOTE | ~2025-08-22 | CT_ITS ---
EXAMINATION: CT ABDOMEN AND PELVIS WITH CONTRAST CLINICAL INFORMATION: Right flank pain COMPARISON: None available. TECHNIQUE: Multidetector volumetric images were obtained from the superior aspect of the liver through the pubic symphysis following administration 85 mL of Omnipaque 350 intravenous contrast. Sagittal and coronal reformatted images were obtained on the technologist's workstation. Oral contrast: No This CT examination was performed using dose optimization techniques as appropriate, variously including the following: *Automated exposure control *Adjustment of mA and/or kV according to patient size (this includes techniques or standardized protocols for targeted exams where dose is matched to indication/reason for exam; i.e. extremities or head) *Use of iterative reconstruction technique. DLP: 854 mGy centimeter. FINDINGS: LUNG BASES: No airspace disease. LIVER, GALLBLADDER, AND BILIARY TREE: Liver measures 16 cm. There are multiple, lobulated, probably thin septated low density lesions throughout the parenchyma, the largest measures 32 mm. Main portal vein is patent. No intrahepatic biliary ductal dilatation. Cholecystectomy. No extrahepatic biliary ductal dilatation. PANCREAS: No focal mass. No peripancreatic fluid collection. No main pancreatic ductal dilatation. SPLEEN: 10 cm. Multiple punctate calcifications. ADRENAL GLANDS: 12 mm low-density nodule measures 11 Hounsfield units, right arteriogram. No nodular lesion, left adrenal gland. KIDNEYS AND URETERS: No hydronephrosis. No gross nephrolithiasis. Multifocal different sizes hypodensities throughout the renal parenchyma, the largest in the lower pole left kidney measures 34 mm. Normal enhancement of the renal parenchyma. No perinephric fluid collections. BLADDER: Collapsed. GASTROINTESTINAL TRACT: Numerous diverticula throughout the large intestine. Abundant stool. No intestinal obstruction pattern. No intestinal wall thickening. Absent appendix likely prior appendectomy. No ascites. No pneumoperitoneum. Small tiny gas-filled abnormality in the second portion/third portion of the duodenum probable diverticula. Hiatal hernia, small.. ABDOMINAL WALL: Small tiny fat-containing umbilical hernia. LYMPH NODES: No mesenteric or retroperitoneal lymphadenopathy. VASCULAR: Tortuosity of the thoracolumbar spine. No aneurysm or dissection, abdominal aorta. Mixed plaques throughout the abdominal aorta wall and iliac arteries. Calcified plaque at the origin of the main renal arteries. Calcified plaques in the splenic artery. PELVIC VISCERA: Not enlarged prostate gland. OSSEOUS STRUCTURES: Minimal hardening artifact secondary to metallic right hip arthroplasty prosthesis. Degenerative changes in the left coxofemoral joint. Multilevel thoracolumbar spondylosis pronounced at L3-4 resulting in central spinal canal and bilateral neuroforamina stenosis. Spina bifida occulta, S1. Degenerative changes in the stents as well as and sacroiliac joints. CT/CT abdomen pelvis w IV con IMPRESSION: Diverticular disease without acute diverticulitis. No hydronephrosis or gross nephrolithiasis. Multiple thin septated cystic lesions, liver. Multiple cystic lesions in the kidneys. Probable lipid rich adenoma, right adrenal gland. Fleischner guidelines were followed. Electronically signed by: Frantz Quinones MD 08/22/2025 09:29 AM EDT
[2025-08-22 07:22] VITALS: BP 147/89; PULSE 54; RESP 18; TEMP 36.1; O2SAT 97; BMI 33.7
--- OUTSIDE RECORDS SUMMARY | 2025-08-22 07:41 | XMS_ITS | Patient Health Record ---
Author [facility] Address [address] [facility] [place] [address] Care Team Providers Care Flight Director Name Role Phone Sulma YANEZ, Reena Primary Care Provider Julia Mendoza Unavailable [phone] Anam Montano Unavailable [phone] Allergies No Known Allergies Reason For Referral [...] Notes Problem Plantar fasciitis of right foot (8446217666293 9101) Plantar fasciitis of right foot (M72.2) Active confirmed Vital Signs Blood pressure diastolic 65 mm Hg 03/24/2025 Height 9hb81wi in 03/24/2025 Blood pressure systolic 105 mm Hg 03/24/2025 Weight 262 lbs 03/24/2025 BMI 36.54 kg/m2 03/24/2025 Encounters Encounter Location Date Provider [facility] [address] [address] 12/13/2024 Anam Montano Pain in right foot M79.671 ; Calcaneal spur, right foot M77.31 and Plantar fasciitis of right foot M72.[address] [address] 03/24/2025 Julia Angel Pain in right toe(s) M79.674 ; Onychomycosis B35.1 and Pain in left toe(s) M79.[address] [address] 12/08/2024 Julia Angel [address] [address] 12/27/2024 Anam Montano [address] [address] 01/03/2025 Anam Montano [address] [address] 06/21/2025 Julia Angel Assessments Encounter Date Diagnosis (ICD [...] 12/13/2024 Next Appt Details Provider Name:Julia hager, 09/19/2025 03:15:00 PM, [address] [place], [address], Insurance Providers Payer Name Payer Address Payer Phone Subscriber Number Group Number Insured Name Patient Relationship to Insured Coverage Start Date Coverage End Date AARP Medicare Complete [address] [address] [place] [address] [phone] [id number] Demian Marquez Self - patient is the insured Medical (General) History Medical History History ICD Code Anxiety Arthritis Back,Hip,and Knee pain Depression Gall bladder problems High blood pressure Sciatica Surgical History Surgery Date(Month/Year) right hip replacement 2004
--- NOTE | 2025-08-22 07:53 | ED.GENADULT ---
HPI - General Adult General Chief complaint: General Medical Stated complaint: Sharp back pain Time Seen by Provider: 08/22/25 07:26 Source: patient Mode of arrival: ambulatory Limitations: no limitations History of Present Illness ED Provider: Wesley Blankenship HPI narrative: 70-year-old male with pmh of osteoarthritits presents to the ED for right flank pain since yesterday while sitting on the couch. Patient denies any abdominal pain, dysuria, hematuria, flank pain, fever, or chills. Patient denies any recent trauma. Patient states pain on range of motion. Related Data Previous Rx's ?Medication ?Instructions ?Recorded compr.stocking,knee,long,x-lrg #2 ea 04/26/24 loperamide 2 mg tablet (Imodium 2 mg PO Q6H PRN loose stool #14 06/21/24 A-D) tabs benzonatate 100 mg capsule 100 mg PO TID cough #90 caps 01/16/25 Anoro Ellipta 62.5 mcg-25 1 inh inhalation DAILY #60 ea 02/10/25 mcg/actuation powder for inhalation (umeclidinium-vilanterol) acyclovir 5 % topical cream 1 appl topical QID #5 grams 02/10/25 naproxen 500 mg tablet 500 mg PO Q12H #30 tabs 02/27/25 atorvastatin 40 mg tablet 40 mg PO DAILY #90 tabs 04/18/25 chlorthalidone 25 mg tablet 25 mg PO DAILY #90 tabs 04/18/25 citalopram 40 mg tablet 40 mg PO DAILY #90 tabs 04/18/25 diclofenac sodium 75 mg 75 mg PO BID #60 tabs 07/24/25 tablet,delayed release cyclobenzaprine 10 mg tablet 10 mg PO BEDTIME PRN muscle spasm 08/22/25 #7 tabs Allergies Allergy/AdvReac Type Severity Reaction Status Date / Time No Known Allergies Allergy Verified 08/22/25 07:24 Review of Systems Review of Systems: Right flank pain Yes all other systems are reviewed and are negative PMF Past Medical History Medical History (Updated 08/22/25 @ 09:53 by MARGIE Roberts) Depression Hypertension Hyperlipidemia Screening for colon cancer Chronic bronchitis Left hip pain Surgical History History of right hip replacement Family History Family History Father Hypertension Mother No problems noted. 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 Cognitive needs: No Hearing needs: No Vision needs: Yes Physical Exam ED Vital Signs: Vital Signs - 24 hr 08/22/25 07:22 08/22/25 08:38 08/22/25 09:58 Temperature 97 F 97.2 F Pulse Rate 54 48 L 57 Respiratory Rate 18 14 16 Blood Pressure 147/89 H 109/73 133/80 Pulse Oximetry 97 96 Oxygen Delivery Method Room Air Room Air Room Air 08/22/25 10:30 Temperature 98.3 F Pulse Rate 57 Respiratory Rate 16 Blood Pressure 133/80 Pulse Oximetry 96 Oxygen Delivery Method Room Air BMI result Body Mass Index 33.7 Const General: cooperative, healthy appearing, comfortable, no acute distress, well developed, alert, awake and Physically active Orientation/consciousness: patient oriented x3 HENMT Head: Yes normal to inspection, Yes No palpable skull fracture present and Yes normocephalic Ears: hearing grossly normal bilaterally, external ears normal, TM's normal bilaterally, TM normal on the right and TM normal on the left Eyes General: appearance normal, both eyes and all related structures Neck Neck: Yes normal visual inspection, Yes full ROM, Yes no lymphadenopathy, Yes no meningeal signs, Yes trachea midline, Yes supple, No anterior neck swelling and No tender Chest Chest palpation & inspection: normal inspection of the chest and normal palpation of entire chest wall Resp Effort & Inspection: normal respiratory effort and able to speak in complete sentences Auscultation: clear to auscultation bilaterally Cardio Jugular venous distension: no JVD Heart sounds: S1 normal heart sound present and S2 normal heart sound present GI Inspection: Yes normal to inspection Palpation (GI): Soft to palpation, not firm, nontender, no guarding and not rigid General: Yes CVA tenderness (Right) Back/Spine/Pelvis Back: CVA tenderness (Right) Skin General skin exam: no rashes or lesions noted, elasticity normal and turgor normal Neuro General: patient oriented x3, gait normal, tone normal, moves all extremities, Normal light touch and pain sensation, no meningeal signs, no focal motor deficits, CN's II-XI intact bilaterally and normal sensation to monofilament Extrem General: Yes normal to inspection, Yes full ROM and Yes capillary refill normal Psych Appearance: grossly normal, well kempt and not disheveled Medications Administered Discontinued Medications Generic Name Dose Route Start Last Admin Trade Name Merritt PRN Reason Stop Dose Admin Sodium Chloride 1,000 mls @ 999 mls/hr 08/22/25 07:51 08/22/25 09:10 Ns IV 08/22/25 08:51 Infused .Q1H1M STA Infusion Iohexol 100 ml 08/22/25 08:57 08/22/25 08:58 Iohexol 350 Mg/Ml 100 Ml Infus..Btl IV 08/22/25 08:58 85 ml ONCE ONE Administration Ketorolac Tromethamine 30 mg 08/22/25 07:51 08/22/25 08:22 Ketorolac Tromethamine 30 Mg/Ml Vial IVPUSH 08/22/25 07:52 30 mg ONCE ONE Administration Potassium Chloride 40 meq 08/22/25 08:44 08/22/25 09:07 Potassium Chloride Packet 20 Meq Packet PO 08/22/25 08:45 40 meq ONCE ONE Administration Medical Decision Making Medical Decision Making [facility] Narrative: 70-year-old male presents to the ED for right flank pain starting yesterday without any trauma or genitourinary symptoms. Patient denies any nausea vomiting. Labs UA Toradol fluids ordered. 9:44pm: Labs came back reassuring. UA negative for infection. Kidney function normal. CT scan abdomen negative for any acute events. Shows lumbar radiculopathy and multiple cysts on lesions liver and kidneys and lipid rich adenoma on right adrenal gland. Patient made aware of this told to follow up with primary care provider. Patient explained worrisome signs and informed to return to the ED immediately. Not suspecting renal artery stenosis, PE, urosepsis, [place], pneumonia, or any other life-threatening etiology. Patient given potassium for mild hypokalemia Differential Diagnosis Differential Diagnoses: The differential diagnosis associated with the presentation includes (Kidney stones, pyelonephritis, muscular back pain, degenerative arthritis) Admission/Observation Consideration of admission/observation: Escalation of care including admission/observation considered Lab Data MDM Lab Attestation statement: I reviewed the patient's lab results. 08/22/25 08:13 08/22/25 08:13 Labs: Lab Results 08/22/25 08/22/25 Range/Units 08:13 08:14 WBC 7.2 (4.8-10.8) X10*3/uL RBC 4.11 L (4.60-5.80) X10*6/uL Hgb 13.2 L (14.0-18.0) g/dl Hct 38.3 L (42.0-52.0) % MCV 93.2 (80.0-98.0) fL MCH 32.1 (27.0-33.0) pg MCHC 34.5 (31.0-36.0) g/dl RDW 12.8 (11.0-16.0) % Plt Count 185 (160-400) X10*3/uL MPV 12.4 (9.4-12.4) fL Immature Gran % (Auto) 0.3 (0.0-0.4) % Neut % (Auto) 68.5 (45-73) % Lymph % (Auto) 17.8 L (20-40) % Rhea % (Auto) 9.6 (2-11) % Eos % (Auto) 3.1 (0-4) % Baso % (Auto) 0.7 (0-2) % Lymph # (Auto) 1.3 (1.2-4.9) X10*3/uL Rhea # (Auto) 0.7 (0.1-1.2) X10*3/uL Eos # (Auto) 0.2 (0.0-0.4) X10*3/uL Baso # (Auto) 0.1 (0.0-0.2) X10*3/uL Abs Immat Gran (auto) 0.02 (0.00-0.03) X10*3/uL Absolute Neuts (auto) 4.9 (2.0-8.3) x10*3/uL Absolute Nucleated RBC 0.000 (0.0-0.012) X10*3/uL Nucleated RBC % (auto) 0.0 (0.0-0.2) /100WBC Sodium 140 (135-145) mmol/L Potassium 3.2 L (3.3-5.1) mmol/L Chloride 104 (96-108) mmol/L Carbon Dioxide 29 (22-29) mmol/L Anion Gap 10 L (12-20) BUN 21 H (9-16) mg/dL Creatinine 1.27 (0.5-1.4) mg/dL Estim Creat Clear Calc 69.1 Estimated GFR 56 Random Glucose 109 (60-115) mg/dL Calcium 9.0 (8.4-10.2) mg/dL Total Bilirubin 0.4 (0.0-1.0) mg/dL AST 27 (5-37) U/L ALT 21 (0-40) U/L Alkaline Phosphatase 41 (39-117) U/L Total Protein 7.0 (6.5-8.0) g/dL Albumin 4.2 (3.5-5.0) g/dL Urine Color Dark Yellow Urine Appearance Clear Urine pH 5.0 (5.0-9.0) Ur Specific [place] >= 1.030 H (1.005-1.025) Urine Protein Trace (Neg-Trace) mg/dL Urine Glucose (UA) Negative (Negative) mg/dL Urine Ketones 15 (Negative) mg/dL Urine Blood Negative (Negative) Urine Nitrite Negative (Negative) Ur Leukocyte Esterase Negative (Negative) Independent Interpretation I performed an independent interpretation of an: CT Scan Radiology Impression Discussion of test interpretation with radiology: I have reviewed the radiologist's reading. Independent Historian Clinical information obtained from an independent historian. History obtained from or confirmed by: Other (patient) Prescription Management I considered prescription management with: Pain Medication Discharge Plan Discharge Clinical Impression: Lumbar radiculopathy, Flank pain Patient Disposition: Home, Self-Care Instructions: Osteoarthritis (ED), Lumbar Radiculopathy (ED), Flank Pain (ED) Additional Instructions: Recommend follow-up with your primary care provider. Return to the ED immediately for abdominal pain, nausea, vomiting, flank pain, fever, chills, urinary/bowel incontinence, hematuria, dysuria, chest pain, shortness of breath, chest pain on inspiration, or any other concerning symptoms. Continue taking diclofenac for pain Ordering Physician: Wesley Blankenship Date of Service: 08/22/25 Procedure(s): CT abdomen pelvis w IV con Accession Number(s): [id number] cc: Wesley Blankenship; Reena Ozuna MD~ Report Number: [id number]: Total DLP = 854.00 mGy-cm Reason for Exam: RIght flank pain EXAMINATION: CT ABDOMEN AND PELVIS WITH CONTRAST CLINICAL INFORMATION: Right flank pain COMPARISON: None available. TECHNIQUE: Multidetector volumetric images were obtained from the superior aspect of the liver through the pubic symphysis following administration 85 mL of Omnipaque 350 intravenous contrast. Sagittal and coronal reformatted images were obtained on the technologist's workstation. Oral contrast: No This CT examination was performed using dose optimization techniques as appropriate, variously including the following: *Automated exposure control *Adjustment of mA and/or kV according to patient size (this includes techniques or standardized protocols for targeted exams where dose is matched to indication/reason for exam; i.e. extremities or head) *Use of iterative reconstruction technique. DLP: 854 mGy centimeter. FINDINGS: LUNG BASES: No airspace disease. LIVER, GALLBLADDER, AND BILIARY TREE: Liver measures 16 cm. There are multiple, lobulated, probably thin septated low density lesions throughout the parenchyma, the largest measures 32 mm. Main portal vein is patent. No intrahepatic biliary ductal dilatation. Cholecystectomy. No extrahepatic biliary ductal dilatation. PANCREAS: No focal mass. No peripancreatic fluid collection. No main pancreatic ductal dilatation. SPLEEN: 10 cm. Multiple punctate calcifications. ADRENAL GLANDS: 12 mm low-density nodule measures 11 Hounsfield units, right arteriogram. No nodular lesion, left adrenal gland. KIDNEYS AND URETERS: No hydronephrosis. No gross nephrolithiasis. Multifocal different sizes hypodensities throughout the renal parenchyma, the largest in the lower pole left kidney measures 34 mm. Normal enhancement of the renal parenchyma. No perinephric fluid collections. BLADDER: Collapsed. GASTROINTESTINAL TRACT: Numerous diverticula throughout the large intestine. Abundant stool. No intestinal obstruction pattern. No intestinal wall thickening. Absent appendix likely prior appendectomy. No ascites. No pneumoperitoneum. Small tiny gas-filled abnormality in the second portion/third portion of the duodenum probable diverticula. Hiatal hernia, small.. ABDOMINAL WALL: Small tiny fat-containing umbilical hernia. LYMPH NODES: No mesenteric or retroperitoneal lymphadenopathy. VASCULAR: Tortuosity of the thoracolumbar spine. No aneurysm or dissection, abdominal aorta. Mixed plaques throughout the abdominal aorta wall and iliac arteries. Calcified plaque at the origin of the main renal arteries. Calcified plaques in the splenic artery. PELVIC VISCERA: Not enlarged prostate gland. OSSEOUS STRUCTURES: Minimal hardening artifact secondary to metallic right hip arthroplasty prosthesis. Degenerative changes in the left coxofemoral joint. Multilevel thoracolumbar spondylosis pronounced at L3-4 resulting in central spinal canal and bilateral neuroforamina stenosis. Spina bifida occulta, S1. Degenerative changes in the stents as well as and sacroiliac joints. CT/CT abdomen pelvis w IV con IMPRESSION: Diverticular disease without acute diverticulitis. No hydronephrosis or gross nephrolithiasis. Multiple thin septated cystic lesions, liver. Multiple cystic lesions in the kidneys. Probable lipid rich adenoma, right adrenal gland. Fleischner guidelines were followed. Electronically signed by: Frantz Quinones MD 08/22/2025 09:29 AM EDT Prescriptions: New cyclobenzaprine 10 mg tablet 10 mg PO BEDTIME PRN (Reason: muscle spasm) Qty: 7 0RF Rx Instructions: side effect is drowsiness. DO not take at work or while driving. No Action diclofenac sodium 75 mg tablet,delayed release (DR/EC) 75 mg PO BID Qty: 60 1RF (DME) compr.stocking,knee,long,x-lrg Misc See Rx Instructions .Route Qty: 2 0RF Rx Instructions: As directed loperamide [Imodium A-D] 2 mg tablet 2 mg PO Q6H PRN (Reason: loose stool) Qty: 14 0RF Rx Instructions: 4mg initial dose. Then 2mg after each loose BM. No more than 8mg per day atorvastatin 40 mg tablet 40 mg PO DAILY Qty: 90 3RF chlorthalidone 25 mg tablet 25 mg PO DAILY Qty: 90 3RF citalopram 40 mg tablet 40 mg PO DAILY Qty: 90 3RF benzonatate 100 mg capsule 100 mg PO TID Qty: 90 0RF Anoro Ellipta 62.5-25 mcg/actuation blister with device 1 inh inhalation DAILY Qty: 60 4RF acyclovir 5 % cream 1 appl topical QID Qty: 5 3RF naproxen 500 mg tablet 500 mg PO Q12H Qty: 30 0RF Referrals: Reena Ozuna MD [Primary Care Provider, Internal Medicine] - 2 days Referral Note: Lumbar radiculopathy. Osteoarthritis of the hip. Multiple cysts on liver and kidney. abdomen on right kidney. Clinical Impression: Lumbar radiculopathy; Flank pain Interventions: ED Discharge Assessment Last Done: 08/22/25 10:30 Discharge Date/Time: 08/22/25 10:31 Print Language: Thai
[2025-08-22 08:38] VITALS: BP 109/73; PULSE 48; RESP 14; TEMP 36.2
[2025-08-22 08:39] LABS: Alanine Aminotransferase 21 U/L (0-40); Albumin Level 4.2 g/dL (3.5-5.0); Alkaline Phosphatase 41 U/L (39-117); Anion Gap 10 (12-20); Aspartate Amino Transferase 27 U/L (5-37); Blood Urea Nitrogen 21 mg/dL (9-16); Calcium 9.0 mg/dL (8.4-10.2); Carbon Dioxide 29 mmol/L (22-29); Creatinine Clr Calc Pharmacy 69.1; Estimated Glomerular Filt Rate 56; Total Protein 7.0 g/dL (6.5-8.0)
--- NOTE | 2025-08-22 08:52 | PC.NURSE ---
IV established, patient medicated per the MAR. off unit in CT scan, ambulates independently with steady gait. reports discomfort with positional movement, denies any injury.
[2025-08-22] MEDS: iohexoL 350 MG/ML 100 ML INFUS..BTL IV (08:58)
[2025-08-22] MEDS: Potassium Chloride Packet 20 MEQ PACKET 40 MEQ PO (09:07)
[2025-08-22 09:58] VITALS: BP 133/80; PULSE 57; RESP 16; O2SAT 96
[2025-08-22 10:30] VITALS: BP 133/80; PULSE 57; RESP 16; TEMP 36.8; O2SAT 96
== END 2025-08-22 10:31 | disposition home or self-care (01) ==
PROVIDERS: Physician Assistant; Emergency Provider Emergency Medicine; PCP Internal Medicine
DX: M54.16 Radiculopathy, lumbar region (principal); R10.9 Unspecified abdominal pain; F32.A Depression, unspecified; I10 Essential (primary) hypertension; E78.5 Hyperlipidemia, unspecified
CPT/HCPCS: 36415; 74177; 80053; 81003; 85025; 99285; J1885; Q9967

== ENCOUNTER → 2025-08-22 08:44 | Outpatient (BNV) | payer MEDICARE, SELFPAY | PROVIDERS: Emergency Provider Emergency Medicine; PCP Internal Medicine; Visit Provider Radiology Diagnostic Radiology | DX: K57.90 Diverticulosis of intestine, part unspecified, without perforation or abscess without bleeding (principal); N28.1 Cyst of kidney, acquired; D35.01 Benign neoplasm of right adrenal gland | CPT/HCPCS: 74177 ==